=== PATIENT | female | born 1975 | race African-American/Black ===

== ENCOUNTER 2016-12-17 07:41 | Emergency (ER) | payer OTHER ==
[2016-12-17 07:53] VITALS: BMI 37.2
--- NOTE | 2016-12-17 09:02 | PDOC ---
History of Present Illness - General Chief Complaint: Edema Stated Complaint: SWOLLEN FEET Time Seen by Provider: 12/17/16 08:07 History Source: Patient, Unavil. due to pt. cond. Exam Limitations: No Limitations - History of Present Illness Initial Comments: 41 yo AA F with h/o HTN and uncontrolled IDDM presented to the ED with foot swelling and pain. The symptom started 5 days ago, the pain originated in her anterior ankles radiates to both the dorsal and ventral sides of foot, 9/10, feels like electric shock, no alleviating or aggravating factors, associated with numbness and skin peeling. 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 She Denies fever, chills, sob, chest pain, n/v, tingling, and focal weakness. Past History - Past Medical History Allergies/Adverse Reactions: Allergies Allergy/AdvReac Type Severity Reaction Status Date / Time No Known Allergies Allergy Verified 12/17/16 07:52 Home Medications: Ambulatory Orders Insulin Lispro [Humalog] 10 unit SQ PRN PRN 04/24/15 Insulin Glargine,Hum.rec.anlog [Lantus (10mL VIAL) -] 15 units SQ HS 12/17/16 Lisinopril [Prinivil] 20 mg PO DAILY 12/17/16 Diabetes: Yes HTN: Yes Suicide Attempt (Hx): No - Immunization History Immunization Up to Date: Yes - Psycho/Social/Smoking Cessation Hx Anxiety: No Suicidal Ideation: No Smoking History: Never smoked Have you smoked in the past 12 months: No Hx Alcohol Use: Yes (OCCASIONALLY) Drug/Substance Use Hx: No Substance Use Type: None Hx Substance Use Treatment: No Review of Systems - Review of Systems Constitutional: No: Chills, Fever HEENTM: No: Throat Pain, Throat Swelling Respiratory: No: Cough, Shortness of Breath Cardiac (ROS): No: Chest Pain ABD/GI: No: Diarrhea, Vomiting : No: Dysuria Integumentary: Yes: Other (left heel ulcer) *Physical Exam - Vital Signs Last Vital Signs Temp Pulse Resp BP Pulse Ox 98.6 F 97 H 18 155/90 100 12/17/16 07:50 12/17/16 07:50 12/17/16 07:50 12/17/16 07:50 12/17/16 07:50 - Physical Exam General Appearance: No: Apparent Distress HEENT: negative: Tonsillar Exudate, Tonsillar Erythema Neck: positive: Trachea midline, Supple Respiratory/Chest: positive: Lungs Clear, Normal Breath Sounds Cardiovascular: positive: Regular Rhythm, Regular Rate, S1, S2. negative: Murmur Gastrointestinal/Abdominal: positive: Normal Bowel Sounds, Soft. negative: Tenderness Extremity: positive: Tender, Swelling, Other (L heel ulcer). negative: Calf Tenderness Integumentary: positive: Normal Color, Warm ED Treatment Course - LABORATORY CBC & Chemistry Diagram: 12/17/16 10:25 12/17/16 10:25 Medical Decision Making - Medical Decision Making 12/17/16 09:32 41 yo F with uncontrolled IDDM c/o bilateral feet swelling and pain. Likely to be neuropathic pain. Also found to have grade 1 (Smith scale) diabetic foot ulcer. Will obtain lab work including a1c and refer her to [facility]. 12/17/16 12:02 Blood glc 26, will give D50 and lunch and recheck glc. *DC/Admit/Observation/Transfer Diagnosis at time of Disposition: Diabetic foot ulcer Qualifiers: Diabetic foot ulcer location: heel Diabetes mellitus type: type 2 Laterality: left Non-pressure ulcer stage: limited to breakdown of skin Qualified Code(s): E11.621 - Type 2 diabetes mellitus with foot ulcer - Discharge Dispostion Disposition: HOME Condition at time of disposition: Improved - Referrals Referrals: Angel Lopez MD [Primary Care Provider] - Logan Correa MD [Staff Physician] - - Patient Instructions Printed Discharge Instructions: Complications of Type 2 Diabetes, DI for Diabetes Type 2, DI for Diabetic Foot Ulcer Additional Instructions: You were seen in the Emergency Room at [facility] because of diabetic neuropathy and diabetic foot ulcer. Your blood sugar was also low at 26. We treated you with D50 fluid and gave you lunch to bring your sugar back up. You must come in tomorrow at 2:30 to [facility] on 5th floor to have your ulcer taken care. You also need to make appointment to see the medical accounts receivable specialist (Dr. Logan Correa) and also follow up with your primary doctor (Dr. Lopez) as soon as possible.
--- NOTE | 2016-12-17 09:19 | PDOC ---
Attending Attestation - Resident Resident Name: Ishmael Capone - ED Attending Attestation I have performed the following: I have examined & evaluated the patient, The case was reviewed & discussed with the resident, I agree w/resident's findings & plan, Exceptions are as noted - HPI HPI: 41 yo F history DM (poorly controlled), HTN presents with foot swelling and pain. Pain is to both feet, but she notes that she has an ulcer to the L foot. No fever. 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 Denies calf pain, redness. She has numbness to both feet, sensation of burning to both. - Physicial Exam PE: GENERAL: Awake, alert, and fully oriented, in no acute distress HEAD: No signs of trauma EYES: PERRLA, EOMI, sclera anicteric, conjunctiva clear ENT: Auricles normal inspection, hearing grossly normal, nares patent, oropharynx clear without exudates. Moist mucosa NECK: Normal ROM, supple, no lymphadenopathy, JVD, or masses LUNGS: Breath sounds equal, clear to auscultation bilaterally. No wheezes, and no crackles HEART: Regular rate and rhythm, normal S1 and S2, no murmurs, rubs or gallops ABDOMEN: Soft, nontender, normoactive bowel sounds. No guarding, no rebound. No masses EXTREMITIES: L foot with small ulcer, no surrounding erythema, induration. Minimal serous drainage. Trace edema to B/L ankles. No calf tenderness. NEUROLOGICAL: Cranial nerves II through XII grossly intact. Normal speech. Motor grossly intact. Dec sensation to soles of feet B/L. SKIN: Warm, Dry, normal turgor, no rashes or lesions noted. - Medical Decision Making 41 yo F with DM and HTN. She appears to have poor insight into controlling her diabetes, as she already has neuropathy to both feet, and now with an ulcer. HbA1C elevated. She was initially hypoglycemic (took insulin and did not eat), improved with PO intake. She has not been evaluated by her certifed refrigeration operator for this. Will refer her to endocrinology as an outpatient, as she needs more diabetes education. Also made an appointment for her with the wound care clinic here at [place].
[2016-12-17 10:38] LABS: BASOPHIL 0.8 % (0-2.0); EOSINOPHIL 0.9 % (0-4.5); MCH 20.4 pg (25.7-33.7); MCHC 31.1 g/dl (32.0-36.0); MEAN CELL VOLUME 65.7 fl (80-96); MEAN PLT VOLUME 8.6 fl (7.5-11.1); NEUTROPHILS 67.2 % (42.8-82.8); PLATELET COUNT 417 K/MM3 (134-434); RDW 18.6 % (11.6-15.6); WHITE BLOOD COUNT 11.6 K/mm3 (4.0-10.0)
[2016-12-17 11:26] LABS: ALBUMIN 3.2 g/dl (3.4-5.0); ALK PHOS 171 U/L (45-117); ANION GAP 9 (8-16); BILIRUBIN,TOTAL 0.2 mg/dL (0.2-1.0); CALCIUM 8.6 mg/dL (8.5-10.1); CO2 26 mmol/L (21-32); COCKROFT - GAULT 160.6415; CREATININE 0.7 mg/dL (0.55-1.02); SGPT/ALT 27 U/L (12-78); TOT PROT 7.6 g/dl (6.4-8.2)
[2016-12-17 11:31] LABS: GLUCOSE,RANDOM 28 mg/dL (74-106); SGOT/AST 31 U/L (15-37)
[2016-12-17] MEDS ORDERED: DEXTROSE 50%-WATER 50 ML DISP.SYRIN ONE (11:32)
[2016-12-17] MEDS ORDERED: DEXTROSE 50%-WATER - 25 GM/50 ML VIAL IVPUSH ONE (11:32)
[2016-12-17 11:45] VITALS: TEMP 98.7
[2016-12-17 13:34] VITALS: BP 128/81; PULSE 95
== END 2016-12-17 13:38 | disposition home or self-care (01) ==
LOC: JER 07:41
PROC: 3E033GC Introduction of Other Therapeutic Substance into Peripheral Vein, Percutaneous Approach (ICD-10-PCS; principal; 2016-12-17)
DX: E11.621 Type 2 diabetes mellitus with foot ulcer (principal); I10 Essential (primary) hypertension; Z79.4 Long term (current) use of insulin
CPT/HCPCS: 36415; 80053; 83036; 83880; 85025; 96374; 99284-25

== ENCOUNTER 2017-03-18 05:22 | Inpatient (IN) | payer OTHER ==
--- NOTE | 2017-03-18 05:29 | PDOC ---
History of Present Illness - General Chief Complaint: Nausea/Vomiting Stated Complaint: VOMITING Time Seen by Provider: 03/18/17 05:29 History Source: Patient, Significant Other Exam Limitations: Clinical Condition - History of Present Illness Initial Comments: 03/18/17 05:58 42 year old female with PMH of poorly controlled diabetes (A1C 11.6 11/2016 with an admission in 2013 for DKA) and HTN presenting with N/V/D since yesterday later afternoon. She denies strange food ingestion or any recent sick contacts. She started feeling nauseous early yesterday afternoon which progressed to worsening N/V/D throughout the day and night. She describes the vomit as bilious but non-bloody and the diarrhea as non-bloody. Difficult to obtain a full history because patient was actively vomiting during interview. No fevers, chills, chest pain, or other sick symptoms. 03/18/17 06:40 Past History - Past Medical History Allergies/Adverse Reactions: Allergies Allergy/AdvReac Type Severity Reaction Status Date / Time No Known Allergies Allergy Verified 03/18/17 05:29 Home Medications: Ambulatory Orders Insulin Lispro [Humalog] 10 unit SQ PRN PRN 04/24/15 Insulin Glargine,Hum.rec.anlog [Lantus (10mL VIAL) -] 15 units SQ HS 12/17/16 Lisinopril [Prinivil] 20 mg PO DAILY 12/17/16 Lyrica 1 tab PO DAILY 03/10/17 Diabetes: Yes HTN: Yes Suicide Attempt (Hx): No - Immunization History Immunization Up to Date: Yes - Psycho/Social/Smoking Cessation Hx Anxiety: No Suicidal Ideation: No Smoking History: Never smoked Have you smoked in the past 12 months: No Hx Alcohol Use: Yes (OCCASIONALLY) Drug/Substance Use Hx: No Substance Use Type: None Hx Substance Use Treatment: No Review of Systems - Review of Systems Able to Perform ROS?: No (Actively vomiting) *Physical Exam - Physical Exam Comments: 03/18/17 06:47 Physical exam limited to to discomfort and constant movement of the patient. General Appearance: Yes: Nourished, Appropriately Dressed, Apparent Distress, Severe Distress, Obese HEENT: positive: EOMI, JOHNNY Respiratory/Chest: positive: Lungs Clear, Normal Breath Sounds. negative: Respiratory Distress, Accessory Muscle Use, Labored Respiration Cardiovascular: positive: Regular Rhythm, S1, S2, Tachycardia. negative: Regular Rate, Murmur, Bradycardia Gastrointestinal/Abdominal: positive: Flat, Soft. negative: Normal Bowel Sounds , Tender, Organomegaly Integumentary: positive: Dry, Warm Neurologic: positive: Alert Medical Decision Making - Medical Decision Making 03/18/17 06:57 42 year old poorly controlled diabetic presenting with nausea, vomiting, and diarrhea for the past day. FS on presentation was 331. Hemoglobin A1C on 12/16 was 11. CBC showing leukocytosis and CMP hemolyzed. UA and U preg pending. Afebrile with pressures slightly soft in 90s. 1 L NS Zofran then Reglan given. This is most likely diabetic gastroparesis vs. DKA vs. hyperglycemic gastroenteritis vs. gastroenteritis NOS. Patient signed out to Dr. Rosa Bryant at 7:05 AM *DC/Admit/Observation/Transfer Diagnosis at time of Disposition: Diabetic gastroparesis
--- NOTE | 2017-03-18 05:31 | PDOC ---
Attending Attestation - Resident Resident Name: Tom Neely - ED Attending Attestation I have performed the following: I have examined & evaluated the patient, The case was reviewed & discussed with the resident, I agree w/resident's findings & plan, Exceptions are as noted - HPI HPI: 42 yo F history HTN, DM (she states she is compliant with medication, however, chart review shows prior elevated A1C) presents with N/V x2 days. No known ingestions or sick contacts. No fever/chills. She states that she has been unable to keep anything down. Limited history, patient intermittently vomiting throughout. - Physicial Exam PE: GENERAL: Awake, alert, intermittently vomiting. HEAD: No signs of trauma EYES: PERRLA, EOMI, sclera anicteric, conjunctiva clear ENT: Auricles normal inspection, hearing grossly normal, nares patent, oropharynx clear without exudates. Dry mucosa NECK: Normal ROM, supple, no lymphadenopathy, JVD, or masses LUNGS: Breath sounds equal, clear to auscultation bilaterally. No wheezes, and no crackles HEART: Regular rate and rhythm, normal S1 and S2, no murmurs, rubs or gallops ABDOMEN: Soft, nontender, +hypoactive bowel sounds. No guarding, no rebound. No masses EXTREMITIES: Normal range of motion, no edema. No clubbing or cyanosis. No cords, erythema, or tenderness NEUROLOGICAL: Moving all extremities. Cranial nerves grossly intact. Limited by patient clinical condition- actively vomiting. SKIN: Warm, Dry, normal turgor, no rashes or lesions noted. - Medical Decision Making 42 yo F history HTN, DM presents with persistent N/V. Presentation raises concern for either gastroparesis or DKA. Awaiting labs. Patient endorsed to day team- f/u labs, reassess. Will likely require admission, as she has already received zofran and reglan, still intermittently vomiting.
[2017-03-18] MEDS ORDERED: SODIUM CHLORIDE 0.9% 1000 ML INFUS.BAG IV ONE (05:39)
[2017-03-18] MEDS ORDERED: ONDANSETRON 4 MG/2 ML VIAL IVPUSH ONE ×2 (05:39→07:54)
[2017-03-18] MEDS ORDERED: ONDANSETRON 4 MG/2 ML VIAL ONE ×3 (05:53→14:05)
[2017-03-18 06:12] LABS: BASOPHIL 0.6 % (0-2.0); MCH 20.5 pg (25.7-33.7); MCHC 31.3 g/dl (32.0-36.0); MEAN CELL VOLUME 65.5 fl (80-96); MEAN PLT VOLUME 8.4 fl (7.5-11.1); NEUTROPHILS 89.2 % (42.8-82.8); PLATELET COUNT 477 K/MM3 (134-434); RDW 17.8 % (11.6-15.6); WHITE BLOOD COUNT 12.5 K/mm3 (4.0-10.0)
[2017-03-18] MEDS ORDERED: METOCLOPRAMIDE HCL INJECTION 10 MG/2 ML VIAL IVPUSH ONE (06:36)
[2017-03-18] MEDS ORDERED: METOCLOPRAMIDE HCL INJECTION 10 MG/2 ML VIAL ONE (06:57)
[2017-03-18 07:01] LABS: URINE APPEARANCE CLEAR; URINE BILIRUBIN NEGATIVE (NEGATIVE); URINE BLOOD NEGATIVE (NEGATIVE); URINE COLOR COLORLESS; URINE GLUCOSE (UA) 3+ (NEGATIVE); URINE KETONE 1+ (NEGATIVE); URINE LEUK ESTERASE NEGATIVE (NEGATIVE); URINE NITRITE NEGATIVE (NEGATIVE); URINE PROTEIN NEGATIVE (NEGATIVE); URINE UROBILINOGEN NEGATIVE mg/dL (0.2-1.0)
--- NOTE | 2017-03-18 07:35 | PDOC ---
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 setter at bedside, minimally conversive but responds appropriately by nodding head) Vascular Pulses: Femoral (R): 4+, Femoral (L): 4+, Carotid (R): 4+, Carotid (L) : 4+, Dorsalis-Pedis (R): 4+, Doralis-Pedis (L): 4+ ED Treatment Course - LABORATORY CBC & Chemistry Diagram: 03/18/17 06:05 03/18/17 06:05 - ADDITIONAL ORDERS Additional order review: Laboratory Results 03/18/17 03/18/17 03/18/17 06:05 06:05 06:05 Sodium Cancelled Potassium Cancelled Chloride Cancelled Carbon Dioxide Cancelled Anion Gap Cancelled BUN Cancelled Creatinine Cancelled Creat Clearance w eGFR Cancelled POC Glucometer Random Glucose Cancelled Lactic Acid 2.8 H* Calcium Cancelled Total Bilirubin Cancelled AST Cancelled ALT Cancelled Alkaline Phosphatase Cancelled Total Protein Cancelled Albumin Cancelled Urine Color Colorless Urine Appearance Clear Urine pH 8.0 D Urine Protein Negative Urine Glucose (UA) 3+ H D Urine Ketones 1+ H Urine Blood Negative Urine Nitrite Negative Urine Bilirubin Negative Urine Urobilinogen Negative Ur Leukocyte Esterase Negative Urine HCG, Qual Negative 03/18/17 05:37 Sodium Potassium Chloride Carbon Dioxide Anion Gap BUN Creatinine Creat Clearance w eGFR POC Glucometer [phone] Random Glucose Lactic Acid Calcium Total Bilirubin AST ALT Alkaline Phosphatase Total Protein Albumin Urine Color Urine Appearance Urine pH Urine Protein Urine Glucose (UA) Urine Ketones Urine Blood Urine Nitrite Urine Bilirubin Urine Urobilinogen Ur Leukocyte Esterase Urine HCG, Qual 03/18/17 03/18/17 06:05 05:37 RBC 5.40 H MCV 65.5 L MCHC 31.3 L RDW 17.8 H MPV 8.4 Neutrophils % 89.2 H D Lymphocytes % 8.0 D Monocytes % 2.2 L Eosinophils % 0.0 D Basophils % 0.6 POC Glucometer [phone] - Medications Given in the ED: ED Medications Discontinued Medications Generic Name Dose Route Start Last Admin Trade Name Consuelo PRN Reason Stop Dose Admin Metoclopramide HCl 10 mg 03/18/17 06:36 03/18/17 06:50 Reglan Injection - IVPUSH 03/18/17 06:37 10 mg ONCE ONE Administration Ondansetron HCl 4 mg 03/18/17 05:39 03/18/17 06:00 Zofran Injection IVPUSH 03/18/17 05:40 4 mg ONCE ONE Administration Sodium Chloride 1,000 ml 03/18/17 05:39 03/18/17 06:00 Normal Saline - IV 03/18/17 05:40 1,000 ml ONCE ONE Administration Medical Decision Making - Medical Decision Making 03/18/17 07:[address] Boston Neely at 7am. 42 yo F with poorly-controlled IDDM presented obtunded last night with c/o n/v/d since yesterday afternoon, found to be hyperglycemic >300 despite reportedly taking her normal insulin at home last night. Her AMS improved overnight but Pt still with intractable vomiting despite Zofran, Reglan, IVF bolus. WBC >12k, UA with 1+ ketones, CMP hemolyzed and now attempting to re-collect blood sample but the patient has been a difficult stick. Will await anion gap result, considering serum acetone. IV Reglan given just before signout and Pt continues to 30 minutes after; will consider erythromycin. *DC/Admit/Observation/Transfer Diagnosis at time of Disposition: Gastroparesis diabeticorum - Referrals Referrals: Angel Lopez MD [Primary Care Provider] - - Patient Instructions - Post Discharge Activity
[2017-03-18] MEDS ORDERED: HEMOQUE TEST 1 EACH EACH ONE ×3 (07:36→14:04)
[2017-03-18 07:42] LABS: ANISOCYTOSIS 2+; HYPOCHROMIA 2+; MICROCYTOSIS 2+
[2017-03-18] MEDS ORDERED: BACITRACIN 0.9 GM PACKET ONE (07:55)
--- NOTE | 2017-03-18 07:59 | PDOC ---
*Physical Exam - Vital Signs Last Vital Signs Temp Pulse Resp BP Pulse Ox 98.7 F 107 H 20 97/64 100 03/18/17 05:29 03/18/17 05:29 03/18/17 05:29 03/18/17 05:29 03/18/17 05:29 - Physical Exam General Appearance: Yes: Moderate Distress, Obese, Other (laying on left side with eyes mostly closed, coremaker bench at bedside, emesis bag with dark brown liquid at bedside) Gastrointestinal/Abdominal: positive: Tender (mild diffuse tender), Soft, Other (dry heaving and vomiting dark brown liquid, hypoactive bowel sounds) Musculoskeletal: positive: Normal Inspection Neurologic: positive: Fully Oriented, Alert, Normal Response, Responsive ED Treatment Course - LABORATORY CBC & Chemistry Diagram: 03/18/17 06:05 03/18/17 16:45 - ADDITIONAL ORDERS Additional order review: Laboratory Results 03/18/17 03/18/17 03/18/17 06:05 06:05 06:05 Sodium Cancelled Potassium Cancelled Chloride Cancelled Carbon Dioxide Cancelled Anion Gap Cancelled BUN Cancelled Creatinine Cancelled Creat Clearance w eGFR Cancelled POC Glucometer Random Glucose Cancelled Lactic Acid 2.8 H* Calcium Cancelled Total Bilirubin Cancelled AST Cancelled ALT Cancelled Alkaline Phosphatase Cancelled Total Protein Cancelled Albumin Cancelled Urine Color Colorless Urine Appearance Clear Urine pH 8.0 D Urine Protein Negative Urine Glucose (UA) 3+ H D Urine Ketones 1+ H Urine Blood Negative Urine Nitrite Negative Urine Bilirubin Negative Urine Urobilinogen Negative Ur Leukocyte Esterase Negative Urine HCG, Qual Negative 03/18/17 05:37 Sodium Potassium Chloride Carbon Dioxide Anion Gap BUN Creatinine Creat Clearance w eGFR POC Glucometer [phone] Random Glucose Lactic Acid Calcium Total Bilirubin AST ALT Alkaline Phosphatase Total Protein Albumin Urine Color Urine Appearance Urine pH Urine Protein Urine Glucose (UA) Urine Ketones Urine Blood Urine Nitrite Urine Bilirubin Urine Urobilinogen Ur Leukocyte Esterase Urine HCG, Qual 03/18/17 03/18/17 06:05 05:37 RBC 5.40 H MCV 65.5 L MCHC 31.3 L RDW 17.8 H MPV 8.4 Neutrophils % 89.2 H D Lymphocytes % 8.0 D Monocytes % 2.2 L Eosinophils % 0.0 D Basophils % 0.6 POC Glucometer [phone] - Medications Given in the ED: ED Medications Discontinued Medications Generic Name Dose Route Start Last Admin Trade Name Consuelo PRN Reason Stop Dose Admin Metoclopramide HCl 10 mg 03/18/17 06:36 03/18/17 06:50 Reglan Injection - IVPUSH 03/18/17 06:37 10 mg ONCE ONE Administration Ondansetron HCl 4 mg 03/18/17 05:39 03/18/17 06:00 Zofran Injection IVPUSH 03/18/17 05:40 4 mg ONCE ONE Administration Sodium Chloride 1,000 ml 03/18/17 05:39 03/18/17 06:00 Normal Saline - IV 03/18/17 05:40 1,000 ml ONCE ONE Administration Medical Decision Making - Medical Decision Making 03/18/17 07:[address] Boston Neely at 7am. 42 yo F with poorly-controlled IDDM presented obtunded last night with c/o n/v/d since yesterday afternoon, found to be hyperglycemic >300 despite reportedly taking her normal insulin at home last night. Her AMS improved overnight but Pt still with intractable vomiting despite Zofran, Reglan, IVF bolus. WBC >12k, UA with 1+ ketones, CMP hemolyzed and now attempting to re-collect blood sample but the patient has been a difficult stick. Will await anion gap result, considering serum acetone. IV Reglan given just before signout and Pt continues to 30 minutes after; EKG shows QTc 464 and thus will order another 4mg IV Zofran. If vomiting continues, will consider erythromycin 3 mg/kg IV q8h prn n/v. 03/18/17 08:11 BG measured to be 425, CMP pending but no EKG changes suggesting hypokalemia, so 6U regular insulin IV push given. 03/18/17 10:13 Vomiting subsided for about 30 minutes but returned; thus ordering erythromycin 3 mg/kg IV given over 45 minutes. Repeating CMP and lactate at 10:30 to re- evaluate. May consider RUQ US if alkaline phosphatase is still elevated or if AST or ALT are elevated at that time, given that the patient does fit the profile for cholecystitis. 03/18/17 11:24 Patient still vomiting despite erythromycin running, now with blood-tinged emesis which is still dark brown fluid. Decision to admit to Dr. Lopez, who has cared for her in the past and graciously accepts admission to med/surg obs. GI consult ordered with Dr. Hartley. Patient's repeat BG is >400 and thus she is given SQ insulin. Subsequently the repeat CMP returns with anion gap of 17, so the patient is started on insulin drip. ICU Dr. Forde is called and agrees with admission to ICU given insulin drip and DKA diagnosis. Dr. Lopez is notified and Pt will be seen by Endocrine as well. *DC/Admit/Observation/Transfer Diagnosis at time of Disposition: Intractable vomiting with nausea Qualifiers: Vomiting type: unspecified Qualified Code(s): R11.2 - Nausea with vomiting, unspecified DKA (diabetic ketoacidoses) Qualifiers: Diabetes mellitus type: type 2 Diabetes mellitus complication detail: without coma Qualified Code(s): E13.10 - Other specified diabetes mellitus with ketoacidosis without coma - Discharge Dispostion Admit: Yes - Referrals - Patient Instructions - Post Discharge Activity - Attestations Physician Attestion: 03/18/17 08:00 I, Dr. Rosa Bryant, attest that this document has been prepared under my direction and personally reviewed by me in its entirety. I further attest, that it accurately reflects all work, treatment, procedures and medical decision -making performed by me.
[2017-03-18] MEDS ORDERED: SODIUM CHLORIDE 1,000 ML IV ONE (08:03)
[2017-03-18 08:10] LABS: ALBUMIN 3.5 g/dl (3.4-5.0); ANION GAP 16 (8-16); BILIRUBIN,TOTAL 0.4 mg/dL (0.2-1.0); CALCIUM 9.2 mg/dL (8.5-10.1); CO2 19 mmol/L (21-32); CREATININE 0.8 mg/dL (0.55-1.02); SGOT/AST 31 U/L (15-37); SGPT/ALT 24 U/L (12-78)
[2017-03-18] MEDS ORDERED: INSULIN REGULAR HUMAN 100 UNITS/ML *VIAL ONE ×3 (08:10→11:48)
[2017-03-18] MEDS ORDERED: INSULIN REGULAR HUMAN 100 UNITS/ML *VIAL IVPUSH ONE (08:10)
[2017-03-18 08:11] LABS: ALK PHOS 224 U/L (45-117)
[2017-03-18 08:58] LABS: GLUCOSE,RANDOM 382 mg/dL (74-106)
[2017-03-18] MEDS ORDERED: ERYTHROMYCIN *INJECTION* 500 MG VIAL IVPB ONE (10:06)
[2017-03-18 11:27] LABS: ALBUMIN 3.5 g/dl (3.4-5.0); ALK PHOS 225 U/L (45-117); ANION GAP 17 (8-16); BILIRUBIN,TOTAL 0.4 mg/dL (0.2-1.0); CALCIUM 8.9 mg/dL (8.5-10.1); CO2 17 mmol/L (21-32); CREATININE 0.8 mg/dL (0.55-1.02); SGPT/ALT 27 U/L (12-78); TOT PROT 8.3 g/dl (6.4-8.2)
[2017-03-18 11:35] LABS: SGOT/AST 54 U/L (15-37)
[2017-03-18 11:36] LABS: GLUCOSE,RANDOM 363 mg/dL (74-106)
[2017-03-18] MEDS ORDERED: INSULIN REGULAR HUMAN 100 UNITS/ML *VIAL SQ ONE (11:42)
[2017-03-18] MEDS ORDERED: INSULIN REGULAR 100 UNITS in SODIUM CHLORIDE 99 ML IVPB SCH ×2 (12:00→17:30)
[2017-03-18] MEDS ORDERED: PANTOPRAZOLE SODIUM 80 MG in SODIUM CHLORIDE 100 ML IVPB ONE (12:26)
[2017-03-18] MEDS ORDERED: PANTOPRAZOLE SODIUM 100 ML IVPB ONE ×2 (12:26→19:23)
--- NOTE | 2017-03-18 12:48 | PDOC ---
*Physical Exam - Vital Signs Last Vital Signs Temp Pulse Resp BP Pulse Ox 98.9 F 122 H 16 193/99 100 03/18/17 12:05 03/18/17 12:05 03/18/17 12:05 03/18/17 12:05 03/18/17 12:05 ED Treatment Course - LABORATORY CBC & Chemistry Diagram: 03/18/17 06:05 03/18/17 10:30 - ADDITIONAL ORDERS Additional order review: Laboratory Results 03/18/17 03/18/17 03/18/17 10:30 10:30 08:02 Sodium 136 Potassium 4.9 Chloride 102 Carbon Dioxide 17 L Anion Gap 17 H BUN 9 Creatinine 0.8 Creat Clearance w eGFR > 60 POC Glucometer > 400 Random Glucose 363 H* Hemoglobin A1c % Lactic Acid 2.6 H* Calcium 8.9 Total Bilirubin 0.4 AST 54 H D ALT 27 Alkaline Phosphatase 225 H Total Protein 8.3 H Albumin 3.5 Urine Color Urine Appearance Urine pH Ur Specific [place] Urine Protein Urine Glucose (UA) Urine Ketones Urine Blood Urine Nitrite Urine Bilirubin Urine Urobilinogen Ur Leukocyte Esterase Urine HCG, Qual 03/18/17 03/18/17 03/18/17 07:40 07:40 06:05 Sodium 135 L Potassium 4.5 Chloride 100 Carbon Dioxide 19 L D Anion Gap 16 BUN 10 Creatinine 0.8 Creat Clearance w eGFR > 60 POC Glucometer Random Glucose 382 H* D Hemoglobin A1c % 11.2 H 11.2 H D Lactic Acid Calcium 9.2 Total Bilirubin 0.4 D AST 31 ALT 24 Alkaline Phosphatase 224 H D Total Protein 8.0 Albumin 3.5 Urine Color Urine Appearance Urine pH Ur Specific [place] Urine Protein Urine Glucose (UA) Urine Ketones Urine Blood Urine Nitrite Urine Bilirubin Urine Urobilinogen Ur Leukocyte Esterase Urine HCG, Qual 03/18/17 03/18/17 03/18/17 06:05 06:05 06:05 Sodium Cancelled Potassium Cancelled Chloride Cancelled Carbon Dioxide Cancelled Anion Gap Cancelled BUN Cancelled Creatinine Cancelled Creat Clearance w eGFR Cancelled POC Glucometer Random Glucose Cancelled Hemoglobin A1c % Lactic Acid 2.8 H* Calcium Cancelled Total Bilirubin Cancelled AST Cancelled ALT Cancelled Alkaline Phosphatase Cancelled Total Protein Cancelled Albumin Cancelled Urine Color Colorless Urine Appearance Clear Urine pH 8.0 D Ur Specific [place] 1.015 Urine Protein Negative Urine Glucose (UA) 3+ H D Urine Ketones 1+ H Urine Blood Negative Urine Nitrite Negative Urine Bilirubin Negative Urine Urobilinogen Negative Ur Leukocyte Esterase Negative Urine HCG, Qual Negative 03/18/17 05:37 Sodium Potassium Chloride Carbon Dioxide Anion Gap BUN Creatinine Creat Clearance w eGFR POC Glucometer [phone] Random Glucose Hemoglobin A1c % Lactic Acid Calcium Total Bilirubin AST ALT Alkaline Phosphatase Total Protein Albumin Urine Color Urine Appearance Urine pH Ur Specific [place] Urine Protein Urine Glucose (UA) Urine Ketones Urine Blood Urine Nitrite Urine Bilirubin Urine Urobilinogen Ur Leukocyte Esterase Urine HCG, Qual 03/18/17 03/18/17 03/18/17 08:02 06:05 05:37 RBC 5.40 H MCV 65.5 L MCHC 31.3 L RDW 17.8 H MPV 8.4 Neutrophils % 89.2 H D Lymphocytes % 8.0 D Monocytes % 2.2 L Eosinophils % 0.0 D Basophils % 0.6 POC Glucometer > [phone] - Medications Given in the ED: ED Medications Discontinued Medications Generic Name Dose Route Start Last Admin Trade Name Warrenq PRN Reason Stop Dose Admin Erythromycin Lactobionate 250 mg 03/18/17 10:06 03/18/17 11:05 Erythromycin Injection - IVPB 03/18/17 10:07 250 mg ONCE ONE Administration Sodium Chloride 1,000 mls @ 1,000 mls/hr 03/18/17 08:03 03/18/17 08:31 Normal Saline - IV 03/18/17 09:02 1,000 mls/hr ONCE ONE Administration Insulin Human Regular 6 units 03/18/17 08:10 03/18/17 08:30 Novolin R Vial *For Ivpush Or Iv Drip Only* IVPUSH 03/18/17 08:11 6 units ONCE ONE Administration Insulin Human Regular 6 units 03/18/17 11:42 03/18/17 11:43 Novolin R Vial *For Ivpush Or Iv Drip Only* SQ 03/18/17 11:43 6 units ONCE ONE Administration Metoclopramide HCl 10 mg 03/18/17 06:36 03/18/17 06:50 Reglan Injection - IVPUSH 03/18/17 06:37 10 mg ONCE ONE Administration Ondansetron HCl 4 mg 03/18/17 05:39 03/18/17 06:00 Zofran Injection IVPUSH 03/18/17 05:40 4 mg ONCE ONE Administration Ondansetron HCl 4 mg 03/18/17 07:54 03/18/17 08:03 Zofran Injection IVPUSH 03/18/17 07:55 4 mg ONCE ONE Administration Sodium Chloride 1,000 ml 03/18/17 05:39 03/18/17 06:00 Normal Saline - IV 03/18/17 05:40 1,000 ml ONCE ONE Administration Medical Decision Making - Critical Care Time Total Critical Care Time (minutes): 30 Critical Care Statement: The care of this patient involved high complexity decision making to prevent further life threatening deterioration of the patient 's condition and/or to evalute & treat vital organ system(s) failure or risk of failure. - Medical Decision Making 03/18/17 12:42 Received signout to proceed with admission of this IDDM patient with h/o gastroparesis and intractable vomiting, presented with same, ? DKA. Labs initially with AG 16, did not improve despite IV insulin and aggressive IV fluid rehydration and anti-emetics. AG actually increased to 17, glucose in the 300-400 range. started in insulin drip, continued iv fluids. ICU admission. emesis became dark/coffee-ground during ED stay, ? zenia-marin tear. abdomen remained benign, tachycardia but BP elevated. started on PPI, proceed with ICU admission, GI involvement. *DC/Admit/Observation/Transfer Diagnosis at time of Disposition: Intractable vomiting with nausea Qualifiers: Vomiting type: unspecified Qualified Code(s): R11.2 - Nausea with vomiting, unspecified DKA (diabetic ketoacidoses) Qualifiers: Diabetes mellitus type: type 2 Diabetes mellitus complication detail: without coma Qualified Code(s): E13.10 - Other specified diabetes mellitus with ketoacidosis without coma
[2017-03-18 13:15] VITALS: BMI 35.4
[2017-03-18] MEDS ORDERED: ENALAPRILAT DIHYDRATE 1.25 MG/1 ML VIAL IVPB ONE (13:19)
[2017-03-18] MEDS ORDERED: ENALAPRILAT DIHYDRATE 2.5 MG/2 ML VIAL IVPB ONE (13:20)
[2017-03-18] MEDS ORDERED: ONDANSETRON *ODT* 4 MG TABLET SL ONE (13:50)
[2017-03-18 13:57] LABS: ANION GAP 19 (8-16); CALCIUM 8.9 mg/dL (8.5-10.1); CO2 15 mmol/L (21-32); CREATININE 0.9 mg/dL (0.55-1.02); GLUCOSE,RANDOM 282 mg/dL (74-106)
--- NOTE | 2017-03-18 14:19 | CONSULT ---
Consultation: Consult Type: Intensive Care REQUESTING PROVIDER: Dr. Lopez CONSULT REQUEST: We have been asked to medically evaluate this patient for Intensive Care HISTORY OF PRESENT ILLNESS: 42 yo AA F with h/o HTN and uncontrolled IDDM admitted to the ICU for DKA. Patient stated that last night she was resting at home and around 10pm she started having intractable nausea and vomiting suddenly. Per patient, it's unrelated to food and the vomitus was gastric content at first then clear liquid , non-bloody non-bilious. She's taking 20 units of lantus at bedtime in addition to humolog on sliding scale. She denies missing insulin dose or having any active illness. Patient follows Dr. Yan for swelling in R foot and she's supposed to obtain a R lower leg U/S on next week. She vaguely recalls being on abx for the swelling but no longer on it. Denies fever, chills, chest pain, shortness of breath, cough, urinary or bowel symptoms. Past Medical History Cardio/Vascular HTN Gastrointestinal Constipation,GERD Heme/Onc Psych Addictions,Anxiety,Bipolar,Depression,Panic, Psychosis,Schizophrenia,Other Endocrine Diabetes Mellitus Past Surgical History Past Surgical History Allergy NKDA Social History Smoking history Never smoked Have you smoked in the past 12 No months Hx Alcohol Use Yes: OCCASIONALLY Home Medication List Medication Instructions Recorded Confirmed Type Insulin Lispro [Humalog] 10 unit SQ PRN PRN 04/24/15 03/18/17 History Insulin Glargine,Hum.rec.anlog 15 units SQ HS 12/17/16 03/18/17 History [Lantus (10mL VIAL) -] Lisinopril [Prinivil] 20 mg PO DAILY 12/17/16 03/18/17 History Pregabalin [Lyrica -] 0 mg PO DAILY 03/18/17 03/18/17 History REVIEW OF SYSTEMS: CONSTITUTIONAL: loss of appetite Absent: fever, chills, diaphoresis, generalized weakness, malaise, weight change HEENT: Absent: rhinorrhea, nasal congestion, throat pain, throat swelling, difficulty swallowing, mouth swelling, ear pain, eye pain, visual changes CARDIOVASCULAR: Absent: chest pain, syncope, palpitations, irregular heart rate, lightheadedness , peripheral edema RESPIRATORY: Absent: cough, shortness of breath, dyspnea with exertion, orthopnea, wheezing, stridor, hemoptysis GASTROINTESTINAL: abdominal pain, nausea, vomiting Absent: , abdominal distension, diarrhea, constipation, melena, hematochezia GENITOURINARY: Absent: dysuria, frequency, urgency, hesitancy, hematuria, flank pain, genital pain MUSCULOSKELETAL: R foot swelling Absent: myalgia, arthralgia, joint swelling, back pain, neck pain SKIN: Absent: rash, itching, pallor HEMATOLOGIC/IMMUNOLOGIC: Absent: easy bleeding, easy bruising, lymphadenopathy, frequent infections ENDOCRINE: Absent: unexplained weight gain, unexplained weight loss, heat intolerance, cold intolerance NEUROLOGIC: Absent: headache, focal weakness or paresthesias, dizziness, unsteady gait, seizure, mental status changes, bladder or bowel incontinence PSYCHIATRIC: Absent: anxiety, depression, suicidal or homicidal ideation, hallucinations. PHYSICAL EXAMINATION Last Vital Signs Temp Pulse Resp BP Pulse Ox 98.9 F 126 H 20 159/88 100 03/18/17 12:05 03/18/17 13:26 03/18/17 13:26 03/18/17 13:26 03/18/17 13:26 GENERAL: AAO x 3, actively vomiting, in no acute cardiopulmonary distress, EYES: Pupils equal, round and reactive to light, sclera anicteric, conjunctiva clear EARS, NOSE, THROAT: oropharynx clear without exudates. Moist mucous membranes. LUNGS: CTAB HEART: Tachycardic, normal S1 and S2 without murmur, rub or gallop. ABDOMEN: Soft, nontender, not distended, normoactive bowel sounds, no guarding, no rebound, no masses. LOWER EXTREMITIES: 2+ pulses, No peripheral edema in L leg. Warm and edematous in R foot, non tender. CBCD WBC 12.5 K/mm3 (4.0-10.0) H 03/18/17 06:05 RBC 5.40 M/mm3 (3.60-5.2) H 03/18/17 06:05 Hgb 11.1 GM/dL (10.7-15.3) 03/18/17 06:05 Hct 35.4 % (32.4-45.2) 03/18/17 06:05 MCV 65.5 fl (80-96) L 03/18/17 06:05 MCHC 31.3 g/dl (32.0-36.0) L 03/18/17 06:05 RDW 17.8 % (11.6-15.6) H 03/18/17 06:05 Plt Count 477 K/MM3 (134-434) H 03/18/17 06:05 MPV 8.4 fl (7.5-11.1) 03/18/17 06:05 CMP Sodium 140 mmol/L (136-145) 03/18/17 13:12 Potassium 4.2 mmol/L (3.5-5.1) 03/18/17 13:12 Chloride 106 mmol/L (98-107) 03/18/17 13:12 Carbon Dioxide 15 mmol/L (21-32) L 03/18/17 13:12 Anion Gap 19 (8-16) H 03/18/17 13:12 BUN 10 mg/dL (7-18) 03/18/17 13:12 Creatinine 0.9 mg/dL (0.55-1.02) 03/18/17 13:12 Creat Clearance w eGFR > 60 (>60) 03/18/17 10:30 Calcium 8.9 mg/dL (8.5-10.1) 03/18/17 13:12 Total Bilirubin 0.4 mg/dL (0.2-1.0) 03/18/17 10:30 AST 54 U/L (15-37) H D 03/18/17 10:30 ALT 27 U/L (12-78) 03/18/17 10:30 Alkaline Phosphatase 225 U/L (45-117) H 03/18/17 10:30 Total Protein 8.3 g/dl (6.4-8.2) H 03/18/17 10:30 Albumin 3.5 g/dl (3.4-5.0) 03/18/17 10:30 Intake & Output 03/15/17 03/16/17 03/17/17 03/18/17 23:59 23:59 23:59 23:59 Weight 90.718 kg Urine Test Results Urine Color Colorless 03/18/17 06:05 Urine Appearance Clear 03/18/17 06:05 Urine pH 8.0 (5.0-8.0) D 03/18/17 06:05 Ur Specific [place] 1.015 (1.005-1.025) 03/18/17 06:05 Urine Protein Negative (NEGATIVE) 03/18/17 06:05 Urine Glucose (UA) 3+ (NEGATIVE) H D 03/18/17 06:05 Urine Ketones 1+ (NEGATIVE) H 03/18/17 06:05 Urine Blood Negative (NEGATIVE) 03/18/17 06:05 Urine Nitrite Negative (NEGATIVE) 03/18/17 06:05 Urine Bilirubin Negative (NEGATIVE) 03/18/17 06:05 Ur Leukocyte Esterase Negative (NEGATIVE) 03/18/17 06:05 IMAGING CXR on 03/18: no acute pathology ASSESSMENT/PLAN: 42 yo AA F with h/o HTN and uncontrolled IDDM admitted to the ICU for DKA. Endo: DKA - Gap remains open - Cont. insulin gtt till gap closes * transition to levemir 15 units HS * DM diet once gap closes - Cont. D5W+NS - K+ IV and PO as needed - Finger stick Q1H - BMP Q4H ID: Leukocytosis with left shift - Reactive vs. suspected R foot cellulitis - Received keflex for cellulitis at [facility] - DKA associated with leukocytosis in prior admission * Treated with vanco + zosyn - ID consult FEN - D5W+NS @100cc/hr - Monitor K+ and Na+ - NPO for now, DM diet once gap closes Prophylaxis - DVT: SCDs - GI: not indicated Dispo - Cont. to monitor in ICU Ishmael Capone, ICU Resident PGY-2 Pager: [phone] Visit type - Emergency Visit Emergency Visit: Yes ED Registration Date: 03/18/17 Care time: The patient presented to the Emergency Department on the above date and was hospitalized for further evaluation of their emergent condition. - New Patient This patient is new to me today: Yes Date on this admission: 03/18/17 - Critical Care Critical Care patient: Yes Total Critical Care Time (in minutes): 35 Critical Care Statement: The care of this patient involved high complexity decision making to prevent further life threatening deterioration of the patient 's condition and/or to evalute & treat vital organ system(s) failure or risk of failure.
[2017-03-18] MEDS ORDERED: DEXTROSE 5%-NORMAL SALINE 1,000 ML IV SCH ×3 (14:30→23:45)
--- NOTE | 2017-03-18 14:42 | PN ---
Teaching Attending Note Name of Resident: Ishmael Capone ATTENDING PHYSICIAN STATEMENT I saw and evaluated the patient. I reviewed the resident's note and discussed the case with the resident. I agree with the resident's findings and plan as documented. SUBJECTIVE: Patient seen and examined in the ICU. In brief. 42 F, poorly controlled diabetes (A1C 11.6 11/2016), previous admissions for DKA, HTN, and followed in wound care clinic due to RLE cellulitis (was apparently recently on ABX). Admitted via the ER due to intractable N/V/D since yesterday later afternoon. No recent travel history or sick contacts. Vomitus has been bilious with questionable coffee grounds./ No CP or SOB. Noted to have an elevated AG and started on IV Insulin. CXR : No acute pathology. Intake & Output 03/15/17 03/16/17 03/17/17 03/18/17 23:59 23:59 23:59 23:59 Weight 200 lb Last Vital Signs Temp Pulse Resp BP Pulse Ox 98.9 F 126 H 20 159/88 100 03/18/17 12:05 03/18/17 13:26 03/18/17 13:26 03/18/17 13:26 03/18/17 13:26 Active Medications Insulin Human Regular 100 (units/ Sodium Chloride) 100 mls @ 8 mls/hr IVPB TITR NILO; 8 UNITS/HR PRN Reason: Protocol Last Titration: 03/18/17 14:14 Dose: 4.5 units/hr Dextrose/Sodium Chloride (D5-Ns -) 1,000 mls @ 100 mls/hr IV ASDIR NILO GENERAL: Awake, alert, uncomfortable due to N/V HEAD: Normal with no signs of trauma. EYES: sclera anicteric, conjunctiva clear. No lid lag. EARS, NOSE, THROAT: dry mucous membranes. NECK: Normal range of motion, supple without lymphadenopathy, JVD, or masses. LUNGS: Breath sounds equal, clear to auscultation bilaterally. No wheezes, and no crackles. No accessory muscle use. HEART: Regular rate and rhythm, normal S1 and S2 without murmur, rub or gallop. ABDOMEN: Soft, mild tenderness, normoactive bowel sounds, no guarding, no rebound, no masses. No hepatomegaly or splenomegaly. MUSCULOSKELETAL: Normal range of motion at all joints. No bony deformities or tenderness. No CVA tenderness. UPPER EXTREMITIES: 2+ pulses, warm, well-perfused. No cyanosis. No clubbing. Cap refill <2 seconds. No peripheral edema. LOWER EXTREMITIES: 2+ pulses, warm, well-perfused. No calf tenderness. No peripheral edema. NEUROLOGICAL: Non-focal . PSYCHIATRIC: Cooperative. . SKIN: Warm, dry, normal turgor, no rashes or lesions noted. Laboratory Results - last 24 hr 03/18/17 03/18/17 03/18/17 05:37 06:05 06:05 WBC 12.5 H RBC 5.40 H Hgb 11.1 Hct 35.4 MCV 65.5 L MCH 20.5 L MCHC 31.3 L RDW 17.8 H Plt Count 477 H MPV 8.4 Neutrophils % 89.2 H D Lymphocytes % 8.0 D Monocytes % 2.2 L Eosinophils % 0.0 D Basophils % 0.6 Hypochromic-Microcytic 2+ Anisocytosis 2+ Microcytosis 2+ Sodium Potassium Chloride Carbon Dioxide Anion Gap BUN Creatinine Creat Clearance w eGFR POC Glucometer [phone] Random Glucose Hemoglobin A1c % Lactic Acid Calcium Total Bilirubin AST ALT Alkaline Phosphatase Total Protein Albumin Urine Color Colorless Urine Appearance Clear Urine pH 8.0 D Ur Specific [place] 1.015 Urine Protein Negative Urine Glucose (UA) 3+ H D Urine Ketones 1+ H Urine Blood Negative Urine Nitrite Negative Urine Bilirubin Negative Urine Urobilinogen Negative Ur Leukocyte Esterase Negative Urine HCG, Qual Negative 03/18/17 03/18/17 03/18/17 06:05 06:05 06:05 WBC RBC Hgb Hct MCV MCH MCHC RDW Plt Count MPV Neutrophils % Lymphocytes % Monocytes % Eosinophils % Basophils % Hypochromic-Microcytic Anisocytosis Microcytosis Sodium Cancelled Potassium Cancelled Chloride Cancelled Carbon Dioxide Cancelled Anion Gap Cancelled BUN Cancelled Creatinine Cancelled Creat Clearance w eGFR Cancelled POC Glucometer Random Glucose Cancelled Hemoglobin A1c % 11.2 H D Lactic Acid 2.8 H* Calcium Cancelled Total Bilirubin Cancelled AST Cancelled ALT Cancelled Alkaline Phosphatase Cancelled Total Protein Cancelled Albumin Cancelled Urine Color Urine Appearance Urine pH Ur Specific [place] Urine Protein Urine Glucose (UA) Urine Ketones Urine Blood Urine Nitrite Urine Bilirubin Urine Urobilinogen Ur Leukocyte Esterase Urine HCG, Qual 03/18/17 03/18/17 03/18/17 07:40 07:40 08:02 WBC RBC Hgb Hct MCV MCH MCHC RDW Plt Count MPV Neutrophils % Lymphocytes % Monocytes % Eosinophils % Basophils % Hypochromic-Microcytic Anisocytosis Microcytosis Sodium 135 L Potassium 4.5 Chloride 100 Carbon Dioxide 19 L D Anion Gap 16 BUN 10 Creatinine 0.8 Creat Clearance w eGFR > 60 POC Glucometer > 400 Random Glucose 382 H* D Hemoglobin A1c % 11.2 H Lactic Acid Calcium 9.2 Total Bilirubin 0.4 D AST 31 ALT 24 Alkaline Phosphatase 224 H D Total Protein 8.0 Albumin 3.5 Urine Color Urine Appearance Urine pH Ur Specific [place] Urine Protein Urine Glucose (UA) Urine Ketones Urine Blood Urine Nitrite Urine Bilirubin Urine Urobilinogen Ur Leukocyte Esterase Urine HCG, Qual 03/18/17 03/18/17 03/18/17 10:30 10:30 11:25 WBC RBC Hgb Hct MCV MCH MCHC RDW Plt Count MPV Neutrophils % Lymphocytes % Monocytes % Eosinophils % Basophils % Hypochromic-Microcytic Anisocytosis Microcytosis Sodium 136 Potassium 4.9 Chloride 102 Carbon Dioxide 17 L Anion Gap 17 H BUN 9 Creatinine 0.8 Creat Clearance w eGFR > 60 POC Glucometer > 400 Random Glucose 363 H* Hemoglobin A1c % Lactic Acid 2.6 H* Calcium 8.9 Total Bilirubin 0.4 AST 54 H D ALT 27 Alkaline Phosphatase 225 H Total Protein 8.3 H Albumin 3.5 Urine Color Urine Appearance Urine pH Ur Specific [place] Urine Protein Urine Glucose (UA) Urine Ketones Urine Blood Urine Nitrite Urine Bilirubin Urine Urobilinogen Ur Leukocyte Esterase Urine HCG, Qual 03/18/17 03/18/17 03/18/17 13:02 13:12 14:08 WBC RBC Hgb Hct MCV MCH MCHC RDW Plt Count MPV Neutrophils % Lymphocytes % Monocytes % Eosinophils % Basophils % Hypochromic-Microcytic Anisocytosis Microcytosis Sodium 140 Potassium 4.2 Chloride 106 Carbon Dioxide 15 L Anion Gap 19 H BUN 10 Creatinine 0.9 Creat Clearance w eGFR POC Glucometer [phone] Random Glucose 282 H D Hemoglobin A1c % Lactic Acid Calcium 8.9 Total Bilirubin AST ALT Alkaline Phosphatase Total Protein Albumin Urine Color Urine Appearance Urine pH Ur Specific [place] Urine Protein Urine Glucose (UA) Urine Ketones Urine Blood Urine Nitrite Urine Bilirubin Urine Urobilinogen Ur Leukocyte Esterase Urine HCG, Qual IMP: DKA Intractable N/V -> (?) Due to gastroparesis HTN (?) Coffee ground emesis Recent RLE cellulitis Above history PLAN: IVF Insulin drip Follow BGM Strict I&O Noted GI and Endocrine consults were called VTE prophylaxis Contact wound care for further info Would monitor off ABX for now ICU monitoring Dr Portillo Critical Care Total Critical Care Time (in minutes): 35 Critical Care Statement: The care of this patient involved high complexity decision making to prevent further life threatening deterioration of the patient 's condition and/or to evalute & treat vital organ system(s) failure or risk of failure.
[2017-03-18] MEDS ORDERED: ACETAMINOPHEN 325 MG TABLET (FP) PO PRN (15:04)
--- NOTE | 2017-03-18 16:18 | EKG ---
Test Reason : Blood Pressure : / mmHG Vent. Rate : 112 BPM Atrial Rate : 112 BPM P-R Int : 166 ms QRS Dur : 072 ms QT Int : 340 ms P-R-T Axes : 079 015 051 degrees QTc Int : 464 ms SINUS TACHYCARDIA, INTRAATRIAL CONDUCTION ABNORMALITY NONSPECIFIC ST-T ABNORMALITIES WHEN COMPARED WITH ECG OF 25-APR-2015 05:26, CORELATE CLINICALLY AND REPEAT INDICATED Confirmed by SOPHIA ROME MD ([id number]) on 03/18/2017 4:18:24 PM Referred By: Confirmed By:SOPHIA ROME MD
[2017-03-18] MEDS: LISINOPRIL 20 MG TABLET (FP) PO SCH ×2 (16:21→23:27)
[2017-03-18] MEDS ORDERED: SODIUM CHLORIDE IV SCH (17:15)
[2017-03-18] MEDS ORDERED: INSULIN REGULAR IV SCH (17:15)
[2017-03-18 17:56] LABS: ANION GAP 11 (8-16); CALCIUM 8.9 mg/dL (8.5-10.1); CO2 23 mmol/L (21-32); CREATININE 1.1 mg/dL (0.55-1.02); GLUCOSE,RANDOM 128 mg/dL (74-106)
[2017-03-18 17:58] LABS: MAGNESIUM 2.1 mg/dL (1.8-2.4)
--- NOTE | 2017-03-18 18:46 | HP ---
Admitting History and Physical - Primary Care Physician PCP: Angel Lopez - Admission Chief Complaint: ACUTE DKA History of Present Illness: 42 year old female with PMH of poorly controlled diabetes (A1C 11.6 11/2016 with an admission in 2013 for DKA) and HTN presenting with N/V/D since yesterday later afternoon. She denies strange food ingestion or any recent sick contacts. She started feeling nauseous early yesterday afternoon which progressed to worsening N/V/D throughout the day and night. She describes the vomit as bilious but non-bloody and the diarrhea as non-bloody. Difficult to obtain a full history because patient was actively vomiting during interview. No fevers, chills, chest pain, or other sick symptoms. History Source: Medical Record Limitations to Obtaining History: Clinical Condition - Past Medical History Cardiovascular: Yes: HTN Gastrointestinal: Yes: Constipation, GERD ...LMP: 02/23/17 Heme/Onc: No: Anemia, B12 Deficiency, Bleeding Disorder, Cancer, Current Chemotherapy, Current Radiation Therapy, Hemochromatosis, Hypercoaguable State, Myeloproliferative Synd, Sickle Cell Disease, Sickle Cell Trait, Thrombocytopenia, Other Psych: Yes: Addictions, Anxiety, Bipolar, Depression, Panic, Psychosis, Schizophrenia, Other Endocrine: Yes: Diabetes Mellitus - Past Surgical History Past Surgical History: Yes: - Smoking History Smoking history: Never smoked Have you smoked in the past 12 months: No - Alcohol/Substance Use Hx Alcohol Use: Yes (OCCASIONALLY) Home Medications - Allergies Allergies/Adverse Reactions: Allergies Allergy/AdvReac Type Severity Reaction Status Date / Time No Known Allergies Allergy Verified 03/18/17 05:29 - Home Medications Home Medications: Ambulatory Orders Insulin Lispro [Humalog] 10 unit SQ PRN PRN 04/24/15 Insulin Glargine,Hum.rec.anlog [Lantus (10mL VIAL) -] 15 units SQ HS 12/17/16 Lisinopril [Prinivil] 20 mg PO DAILY 12/17/16 Pregabalin [Lyrica -] 0 mg PO DAILY 03/18/17 Review of Systems Findings/Remarks: ASLEEP DROWSEY - Review of Systems Constitutional: reports: Weakness Eyes: reports: No Symptoms HENT: reports: No Symptoms Neck: reports: No Symptoms Cardiovascular: reports: No Symptoms Respiratory: reports: No Symptoms Gastrointestinal: reports: No Symptoms Genitourinary: reports: No Symptoms Musculoskeletal: reports: No Symptoms Integumentary: reports: No Symptoms Neurological: reports: Other Endocrine: reports: No Symptoms Hematology/Lymphatic: reports: Other Psychiatric: reports: Other Physical Examination Vital Signs: Vital Signs Temperature 99.5 F 03/18/17 17:05 Pulse Rate 114 H 03/18/17 17:05 Respiratory Rate 16 03/18/17 17:05 Blood Pressure 144/73 03/18/17 17:05 O2 Sat by Pulse Oximetry (%) 100 03/18/17 17:55 Constitutional: Yes: Moderate Distress Eyes: Yes: WNL HENT: Yes: WNL Neck: Yes: WNL Cardiovascular: Yes: WNL Respiratory: Yes: WNL Gastrointestinal: Yes: WNL Renal/: Yes: WNL Musculoskeletal: Yes: WNL Extremities: Yes: WNL Edema: No Peripheral Pulses WNL: Yes Integumentary: Yes: WNL Wound/Incision: Yes: Clean/Dry Neurological: Yes: WNL ...Motor Strength: WNL Psychiatric: Yes: Other Labs: CBC, BMP 03/18/17 16:45 Imaging - Results Chest X-ray: Report Reviewed Problem List - Problems (1) DKA (diabetic ketoacidoses) Code(s): E13.10 - OTH DIABETES MELLITUS WITH KETOACIDOSIS WITHOUT COMA Qualifiers: Diabetes mellitus type: type 2 Diabetes mellitus complication detail: without coma Qualified Code(s): E13.10 - Other specified diabetes mellitus with ketoacidosis without coma (2) Intractable vomiting with nausea Code(s): R11.2 - NAUSEA WITH VOMITING, UNSPECIFIED Qualifiers: Vomiting type: unspecified Qualified Code(s): R11.2 - Nausea with vomiting, unspecified (3) Diabetes Code(s): E11.9 - TYPE 2 DIABETES MELLITUS WITHOUT COMPLICATIONS Qualifiers: Diabetes mellitus type: type 2 Diabetes mellitus complication status: with hyperglycemia Diabetes mellitus director long term care insulin use: with director long term care use Qualified Code(s): E11.65 - Type 2 diabetes mellitus with hyperglycemia ; 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
[2017-03-18] MEDS: METOCLOPRAMIDE HCL INJECTION 10 MG/2 ML VIAL IVPB SCH (19:30)
--- NOTE | 2017-03-18 19:30 | CON.GI ---
Consult Consult Specialty:: gastroenterology Referred by:: Dr Ezequiel Lopez Reason for Consultation:: intractable nausea and vomiting - History of Present Illness History of Present Illness: 42 y/o female with PMH DM was admitted with DKA associated with nausea,vomiting . She denies dysphagia, abdominal pain, constipation and rectal bleeding. - Past Medical History Cardio/Vascular: Yes: HTN Gastrointestinal: Yes: Constipation, GERD ...LMP: 02/23/17 Psych: Yes: Addictions, Anxiety, Bipolar, Depression, Panic, Psychosis, Schizophrenia, Other Endocrine: Yes: Diabetes Mellitus - Past Surgical History Past Surgical History: Yes: - Alcohol/Substance Use Hx Alcohol Use: Yes (OCCASIONALLY) - Smoking History Smoking history: Never smoked Have you smoked in the past 12 months: No Home Medications - Allergies Allergies/Adverse Reactions: Allergies Allergy/AdvReac Type Severity Reaction Status Date / Time No Known Allergies Allergy Verified 03/18/17 05:29 - Home Medications Home Medications: Ambulatory Orders Insulin Lispro [Humalog] 10 unit SQ PRN PRN 04/24/15 Insulin Glargine,Hum.rec.anlog [Lantus (10mL VIAL) -] 15 units SQ HS 12/17/16 Lisinopril [Prinivil] 20 mg PO DAILY 12/17/16 Pregabalin [Lyrica -] 0 mg PO DAILY 03/18/17 Review of Systems - Review of Systems Constitutional: denies: Fever Eyes: denies: Blind Spots HENT: denies: Difficult Swallowing Neck: denies: Decreased ROM Cardiovascular: denies: Chest Pain Respiratory: denies: SOB, Wheezing Gastrointestinal: reports: Nausea, Vomiting. denies: Abdominal Pain, Bloating, Diarrhea, Dysphagia, Indigestion, Melena, Rectal Bleeding, Vomiting Blood Physical Exam-GI Vital Signs: Vital Signs Temperature 99.5 F 03/18/17 17:05 Pulse Rate 114 H 03/18/17 17:05 Respiratory Rate 16 03/18/17 17:05 Blood Pressure 144/73 03/18/17 17:05 O2 Sat by Pulse Oximetry (%) 100 03/18/17 17:55 Constitutional: Yes: Well Nourished Eyes: Yes: Conjunctiva Clear HENT: Yes: Atraumatic, Tonsillar Exudate Cardiovascular: Yes: Regular Rate and Rhythm Respiratory: Yes: CTA Bilaterally ...Palpate: Yes: Soft. No: Firm/Rigid, Guarding, Hepatomegaly, Mass, Pulsatile Mass, Splenomegaly, Tenderness Labs: CBC, BMP 03/18/17 16:45 Problem List - Problems (1) Intractable vomiting with nausea Assessment/Plan: secondary to DKA and possible gastroparesis R> IV Reglan then give 5mg 30 min ac for 4 weeks only to avoid side effects Protonix 40mg daily made aware to ff-up for outpatient EGD Code(s): R11.2 - NAUSEA WITH VOMITING, UNSPECIFIED Qualifiers: Vomiting type: unspecified Qualified Code(s): R11.2 - Nausea with vomiting, unspecified
[2017-03-18] MEDS ORDERED: SODIUM CHLORIDE 1,000 ML IV SCH (19:45)
[2017-03-18] MEDS: INSULIN SLIDING SCALE (NOVOLOG) 1 VIAL SQ SCH ×2 (20:00→23:53)
[2017-03-18] MEDS ORDERED: CHLORHEXIDINE GLUCONATE 4% CLEANSER FOR DECOLONIZATION TP SCH (22:00)
[2017-03-18] MEDS ORDERED: INSULIN DETEMIR 100 UNITS/ML MDV SQ SCH (22:00)
[2017-03-18] MEDS: MUPIROCIN 2% TOPICAL OINTMENT FOR DECOLONIZATION NS SCH (22:28)
--- NOTE | 2017-03-18 23:26 | CONSULT ---
Consult Consult Specialty:: endocrine Referred by:: dr.rabadi thornton Reason for Consultation:: diabetes dka - History of Present Illness Chief Complaint: nausea and vomiting History of Present Illness: 42 year old female with PMH of poorly controlled diabetes (A1C 11.6 11/2016 with an admission in 2013 for DKA) and HTN presenting with N/V/D since yesterday later afternoon. She denies strange food ingestion or travel abroad,has had difficulty controlling diabetes since running out of her insulin medication.she has not been compliant with diet as well. - History Source History Provided By: Patient - Past Medical History Cardio/Vascular: Yes: HTN Gastrointestinal: Yes: Constipation, GERD ...LMP: 02/23/17 Psych: Yes: Addictions, Anxiety, Bipolar, Depression, Panic, Psychosis, Schizophrenia, Other Endocrine: Yes: Diabetes Mellitus - Past Surgical History Past Surgical History: Yes: - Alcohol/Substance Use Hx Alcohol Use: Yes (OCCASIONALLY) - Smoking History Smoking history: Never smoked Have you smoked in the past 12 months: No Home Medications - Allergies Allergies/Adverse Reactions: Allergies Allergy/AdvReac Type Severity Reaction Status Date / Time No Known Allergies Allergy Verified 03/18/17 05:29 - Home Medications Home Medications: Ambulatory Orders Insulin Lispro [Humalog] 10 unit SQ PRN PRN 04/24/15 Insulin Glargine,Hum.rec.anlog [Lantus (10mL VIAL) -] 15 units SQ HS 12/17/16 Lisinopril [Prinivil] 20 mg PO DAILY 12/17/16 Pregabalin [Lyrica -] 0 mg PO DAILY 03/18/17 Review of Systems - Review of Systems Constitutional: reports: Lethargy, Unintentional Wgt. Loss, Weakness Eyes: reports: Blurred Vision HENT: reports: No Symptoms Neck: reports: No Symptoms Cardiovascular: reports: No Symptoms Respiratory: reports: Exercise Intolerance, SOB on Exertion Gastrointestinal: reports: Bloating, Constipation Genitourinary: reports: No Symptoms Breasts: reports: No Symptoms Reported Musculoskeletal: reports: No Symptoms Integumentary: reports: No Symptoms Neurological: reports: No Symptoms Endocrine: reports: Unexplained Weight Loss Physical Exam Vital Signs: Vital Signs Temperature 98.9 F 03/18/17 22:26 Pulse Rate 112 H 03/18/17 22:26 Respiratory Rate 18 03/18/17 22:26 Blood Pressure 160/70 03/18/17 22:26 O2 Sat by Pulse Oximetry (%) 100 03/18/17 20:00 Constitutional: Yes: Calm Eyes: Yes: EOM Intact HENT: Yes: Normocephalic Neck: Yes: Trachea Midline Cardiovascular: Yes: Regular Rate and Rhythm Respiratory: Yes: CTA Bilaterally Gastrointestinal: Yes: Hypoactive Bowel Sounds, Tenderness, Epigastrium ...Rectal Exam: Yes: Deferred Renal/: Yes: WNL Breast(s): Yes: WNL Musculoskeletal: Yes: WNL Extremities: Yes: WNL Edema: No Integumentary: Yes: WNL Neurological: Yes: Alert, Oriented Labs: CBC, [facility] 03/18/17 16:45 Problem List - Problems (1) DKA (diabetic ketoacidoses) Code(s): E13.10 - OTH DIABETES MELLITUS WITH KETOACIDOSIS WITHOUT COMA Qualifiers: Diabetes mellitus type: type 2 Diabetes mellitus complication detail: without coma Qualified Code(s): E13.10 - Other specified diabetes mellitus with ketoacidosis without coma (2) Intractable vomiting with nausea Code(s): R11.2 - NAUSEA WITH VOMITING, UNSPECIFIED Qualifiers: Vomiting type: unspecified Qualified Code(s): R11.2 - Nausea with vomiting, unspecified (3) Back pain Code(s): M54.9 - DORSALGIA, UNSPECIFIED Assessment/Plan Current Active Problems DKA (diabetic ketoacidoses) (Acute) Intractable vomiting with nausea (Acute) dehydration,hypovolemia Abnormal Lab Results 03/18/17 03/18/17 03/18/17 06:05 06:05 06:05 WBC 12.5 H RBC 5.40 H MCV 65.5 L MCH 20.5 L MCHC 31.3 L RDW 17.8 H Plt Count 477 H Neutrophils % 89.2 H D Monocytes % 2.2 L Sodium Carbon Dioxide Anion Gap Creatinine Random Glucose Hemoglobin A1c % Lactic Acid 2.8 H* AST Alkaline Phosphatase Total Protein Urine Glucose (UA) 3+ H D Urine Ketones 1+ H 03/18/17 03/18/17 03/18/17 06:05 07:40 07:40 WBC RBC MCV MCH MCHC RDW Plt Count Neutrophils % Monocytes % Sodium 135 L Carbon Dioxide 19 L D Anion Gap Creatinine Random Glucose 382 H* D Hemoglobin A1c % 11.2 H D 11.2 H Lactic Acid AST Alkaline Phosphatase 224 H D Total Protein Urine Glucose (UA) Urine Ketones 03/18/17 03/18/17 03/18/17 10:30 10:30 13:12 WBC RBC MCV MCH MCHC RDW Plt Count Neutrophils % Monocytes % Sodium Carbon Dioxide 17 L 15 L Anion Gap 17 H 19 H Creatinine Random Glucose 363 H* 282 H D Hemoglobin A1c % Lactic Acid 2.6 H* AST 54 H D Alkaline Phosphatase 225 H Total Protein 8.3 H Urine Glucose (UA) Urine Ketones 03/18/17 03/18/17 16:45 16:45 WBC RBC MCV MCH MCHC RDW Plt Count Neutrophils % Monocytes % Sodium Carbon Dioxide Anion Gap Creatinine 1.1 H D Random Glucose 128 H D Hemoglobin A1c % Lactic Acid 3.6 H* AST Alkaline Phosphatase Total Protein Urine Glucose (UA) Urine Ketones plan: ivfluid ns 150cc /hr insulin drip replace volume and insulin dose titration bgm q1hr bmp q4hrs
[2017-03-19 00:55] LABS: ANION GAP 14 (8-16); CO2 19 mmol/L (21-32); CREATININE 1.2 mg/dL (0.55-1.02); GLUCOSE,RANDOM 283 mg/dL (74-106)
[2017-03-19] MEDS: INSULIN SLIDING SCALE (NOVOLOG) 1 VIAL SQ SCH ×5 (03:00→21:35)
[2017-03-19] MEDS: METOCLOPRAMIDE HCL INJECTION 10 MG/2 ML VIAL IVPB SCH ×4 (03:30→19:00)
[2017-03-19 05:38] LABS: MCHC 30.9 g/dl (32.0-36.0); MEAN CELL VOLUME 64.9 fl (80-96); PLATELET COUNT 450 K/MM3 (134-434); RDW 17.8 % (11.6-15.6); WHITE BLOOD COUNT 15.7 K/mm3 (4.0-10.0)
[2017-03-19 06:03] LABS: ALBUMIN 2.8 g/dl (3.4-5.0); ANION GAP 8 (8-16); BILIRUBIN,TOTAL 0.4 mg/dL (0.2-1.0); CALCIUM 8.4 mg/dL (8.5-10.1); CO2 24 mmol/L (21-32); CREATININE 0.9 mg/dL (0.55-1.02); GLUCOSE,RANDOM 181 mg/dL (74-106); MAGNESIUM 2.3 mg/dL (1.8-2.4); SGOT/AST 25 U/L (15-37); SGPT/ALT 20 U/L (12-78); TOT PROT 6.3 g/dl (6.4-8.2)
[2017-03-19 06:04] LABS: ALK PHOS 165 U/L (45-117)
[2017-03-19] MEDS ORDERED: INSULIN DETEMIR 100 UNITS/ML MDV SQ SCH ×4 (07:00→22:55)
[2017-03-19] MEDS: LISINOPRIL 20 MG TABLET (FP) PO SCH (09:25)
[2017-03-19] MEDS: MUPIROCIN 2% TOPICAL OINTMENT FOR DECOLONIZATION NS SCH (09:57)
--- NOTE | 2017-03-19 11:00 | PN ---
Teaching Attending Note Name of Resident: Ishmael Capone ATTENDING PHYSICIAN STATEMENT I saw and evaluated the patient. I reviewed the resident's note and discussed the case with the resident. I agree with the resident's findings and plan as documented. SUBJECTIVE: Pt seen and examined in the ICU. Feels better today. Off insulin gtt after anion gap closed. Tolerated PO this AM. Some abdominal soreness from vomiting. OBJECTIVE: Last Vital Signs Temp Pulse Resp BP Pulse Ox 98.7 F 101 H 18 150/86 100 03/19/17 10:00 03/19/17 10:00 03/19/17 10:00 03/19/17 10:00 03/18/17 20:00 Intake & Output 03/16/17 03/17/17 03/18/17 03/19/17 23:59 23:59 23:59 23:59 Intake Total 3666 1000 Output Total 600 Balance 3066 1000 Weight 200 lb Gen: NAD at rest Heart: tachycardic, regular Lung: decreased breath sounds at the bases Abd: soft, nontender Ext: no edema CBC, BMP 03/19/17 05:05 03/19/17 05:05 Active Medications Acetaminophen (Tylenol -) 650 mg PO Q6H PRN PRN Reason: FEVER OR PAIN Last Admin: 03/19/17 07:05 Dose: 650 mg Chlorhexidine Gluconate (Hibiclens For Decolonization -) 1 applic TP HS [facility] Last Admin: 03/18/17 22:29 Dose: 1 applic Dextrose/Sodium Chloride (D5-Ns -) 1,000 mls @ 75 mls/hr IV ASDIR [facility] Last Admin: 03/18/17 23:55 Dose: 75 mls/hr Insulin Aspart (Novolog Vial Sliding Scale -) 1 vial SQ ACHS [facility] PRN Reason: Protocol Last Admin: 03/19/17 06:59 Dose: 4 units Insulin Detemir (Levemir Vial) 10 units SQ HS NILO Lisinopril (Prinivil) 20 mg PO DAILY [facility] Last Admin: 03/19/17 09:25 Dose: 20 mg Metoclopramide HCl (Reglan Injection -) 10 mg IVPB Q8H [facility] Last Admin: 03/19/17 03:30 Dose: 10 mg Mupirocin (Bactroban Ointment (For Decolonization) -) 1 applic NS BID [facility] Stop: 03/23/17 21:59 Last Admin: 03/19/17 09:57 Dose: 1 applic ASSESSMENT AND PLAN: Diabetic Ketoacidosis improved HTN Leukocytosis likely leukemoid response - glucose control - monitor BGM - PO as tolerated - can d/c IVF as pt hypertensive - antiemetics - OOB to chair - DVT prophylaxis - can monitor on floor
--- NOTE | 2017-03-19 13:41 | PN ---
Physical Exam: SUBJECTIVE: Patient stated that she's feeling much better. No more n/v, abd pain. She's also tolerating diet. No other complaint. OBJECTIVE: Vital Signs Period Temp Pulse Resp BP Sys/[place] Pulse Ox Last 24 Hr 97.8 F-99.5 F 100-120 16-20 112-170/59-93 100-100 GENERAL: AAO x 3, in no acute cardiopulmonary distress EYES: Pupils equal, round and reactive to light, sclera anicteric, conjunctiva clear EARS, NOSE, THROAT: oropharynx clear without exudates. Moist mucous membranes. LUNGS: CTAB HEART: Tachycardic, normal S1 and S2 without murmur, rub or gallop. ABDOMEN: Soft, nontender, not distended, normoactive bowel sounds, no guarding, no rebound, no masses. LOWER EXTREMITIES: 2+ pulses, No peripheral edema in L leg. Warm and edematous in R foot, non tender. CBCD WBC 15.7 K/mm3 (4.0-10.0) H 03/19/17 05:05 RBC 4.71 M/mm3 (3.60-5.2) 03/19/17 05:05 Hgb 9.4 GM/dL (10.7-15.3) L D 03/19/17 05:05 Hct 30.6 % (32.4-45.2) L 03/19/17 05:05 MCV 64.9 fl (80-96) L 03/19/17 05:05 MCHC 30.9 g/dl (32.0-36.0) L 03/19/17 05:05 RDW 17.8 % (11.6-15.6) H 03/19/17 05:05 Plt Count 450 K/MM3 (134-434) H 03/19/17 05:05 MPV 8.0 fl (7.5-11.1) 03/19/17 05:05 CMP Sodium 143 mmol/L (136-145) 03/19/17 05:05 Potassium 3.8 mmol/L (3.5-5.1) 03/19/17 05:05 Chloride 111 mmol/L (98-107) H 03/19/17 05:05 Carbon Dioxide 24 mmol/L (21-32) D 03/19/17 05:05 Anion Gap 8 (8-16) 03/19/17 05:05 BUN 13 mg/dL (7-18) 03/19/17 05:05 Creatinine 0.9 mg/dL (0.55-1.02) D 03/19/17 05:05 Creat Clearance w eGFR > 60 (>60) 03/19/17 05:05 Calcium 8.4 mg/dL (8.5-10.1) L 03/19/17 05:05 Total Bilirubin 0.4 mg/dL (0.2-1.0) 03/19/17 05:05 AST 25 U/L (15-37) D 03/19/17 05:05 ALT 20 U/L (12-78) D 03/19/17 05:05 Alkaline Phosphatase 165 U/L (45-117) H D 03/19/17 05:05 Total Protein 6.3 g/dl (6.4-8.2) L D 03/19/17 05:05 Albumin 2.8 g/dl (3.4-5.0) L 03/19/17 05:05 Intake & Output 03/16/17 03/17/17 03/18/17 03/19/17 23:59 23:59 23:59 23:59 Intake Total 3666 1000 Output Total 600 Balance 3066 1000 Weight 90.718 kg IMAGING CXR on 03/18: no acute pathology ASSESSMENT/PLAN: 42 yo AA F with h/o HTN and uncontrolled IDDM admitted to the ICU for DKA. Endo: DKA - Resolved - On levemir 10 units HS and novolog sliding scale - On reglan IV - Monitor BMP ID: Leukocytosis with left shift - Reactive vs. suspected R foot cellulitis - Received keflex for cellulitis at wound care center - DKA associated with leukocytosis in prior admission * Treated with vanco + zosyn - Awaiting ID input FEN - No IVF indicated - Monitor K+ and Na+ - DM diet Prophylaxis - DVT: SCDs - GI: not indicated Dispo - Transfer to floor Ishmael Capone, ICU Resident PGY-2 Pager: [phone] Visit type - Emergency Visit Emergency Visit: No - New Patient This patient is new to me today: No - Critical Care Critical Care patient: Yes Total Critical Care Time (in minutes): 30 Critical Care Statement: The care of this patient involved high complexity decision making to prevent further life threatening deterioration of the patient 's condition and/or to evalute & treat vital organ system(s) failure or risk of failure.
--- NOTE | 2017-03-19 16:51 | PN ---
Progress Note, Physician Chief Complaint: SEEN IN ICU AWAKE ALERT FEELING BETTER - Current Medication List Current Medications: Active Medications Acetaminophen (Tylenol -) 650 mg PO Q6H PRN PRN Reason: FEVER OR PAIN Last Admin: 03/19/17 07:05 Dose: 650 mg Chlorhexidine Gluconate (Hibiclens For Decolonization -) 1 applic TP HS NILO Last Admin: 03/18/17 22:29 Dose: 1 applic Insulin Aspart (Novolog Vial Sliding Scale -) 1 vial SQ ACHS NILO PRN Reason: Protocol Last Admin: 03/19/17 11:21 Dose: 5 units Insulin Detemir (Levemir Vial) 10 units SQ HS NILO Lisinopril (Prinivil) 20 mg PO DAILY [facility] Last Admin: 03/19/17 09:25 Dose: 20 mg Metoclopramide HCl (Reglan Injection -) 10 mg IVPB Q8H [facility] Last Admin: 03/19/17 11:21 Dose: 10 mg Mupirocin (Bactroban Ointment (For Decolonization) -) 1 applic NS BID [facility] Stop: 03/23/17 21:59 Last Admin: 03/19/17 09:57 Dose: 1 applic - Objective Vital Signs: Vital Signs Temperature 98.3 F 03/19/17 14:00 Pulse Rate 96 H 03/19/17 14:00 Respiratory Rate 16 03/19/17 14:00 Blood Pressure 123/67 03/19/17 14:00 O2 Sat by Pulse Oximetry (%) 100 03/19/17 09:00 Constitutional: Yes: No Distress Eyes: Yes: WNL HENT: Yes: WNL Neck: Yes: WNL Cardiovascular: Yes: WNL Respiratory: Yes: WNL Gastrointestinal: Yes: WNL Genitourinary: Yes: WNL Musculoskeletal: Yes: WNL Extremities: Yes: WNL Edema: No Peripheral Pulses WNL: Yes Integumentary: Yes: WNL Wound/Incision: Yes: Clean/Dry Neurological: Yes: WNL ...Motor Strength: WNL Psychiatric: Yes: WNL Labs: CBC, BMP 03/19/17 05:05 03/19/17 05:05 Problem List - Problems (1) DKA (diabetic ketoacidoses) Code(s): E13.10 - OTH DIABETES MELLITUS WITH KETOACIDOSIS WITHOUT COMA Qualifiers: Diabetes mellitus type: type 2 Diabetes mellitus complication detail: without coma Qualified Code(s): E13.10 - Other specified diabetes mellitus with ketoacidosis without coma (2) Intractable vomiting with nausea Code(s): R11.2 - NAUSEA WITH VOMITING, UNSPECIFIED Qualifiers: Vomiting type: unspecified Qualified Code(s): R11.2 - Nausea with vomiting, unspecified (3) Diabetes Code(s): E11.9 - TYPE 2 DIABETES MELLITUS WITHOUT COMPLICATIONS Qualifiers: Diabetes mellitus type: type 2 Diabetes mellitus complication status: with hyperglycemia Diabetes mellitus alf insulin use: with terminal carman use Qualified Code(s): E11.65 - Type 2 diabetes mellitus with hyperglycemia ; Z79.4 - longterm (current) use of insulin (4) Hyperglycemia Code(s): R73.9 - HYPERGLYCEMIA, UNSPECIFIED Assessment/Plan ENDOCRINE F/U IVF DIETARY CONSULT
--- NOTE | 2017-03-19 18:39 | CONSULT ---
Consult Consult Specialty:: infectious diseases Referred by:: Reason for Consultation:: leukocytosis - History of Present Illness History of Present Illness: 42 year old female with PMH of poorly controlled diabetes ( HTN admitted with nausea ,vomiting and weakness and fatigue. patient mentions that she has intractable cycle of vomiting which had gomne on for 2 days patient finally decided to come to the hospital and was admitted to icu with diabetic ketoacidosis patient was given iv fluids and insulin drip currently the patient feels well - History Source History Provided By: Patient Limitations to Obtaining History: No Limitations - Past Medical History Cardio/Vascular: Yes: HTN Gastrointestinal: Yes: Constipation, GERD ...LMP: 02/23/17 Psych: Yes: Addictions, Anxiety, Bipolar, Depression, Panic, Psychosis, Schizophrenia, Other Endocrine: Yes: Diabetes Mellitus - Past Surgical History Past Surgical History: Yes: - Alcohol/Substance Use Hx Alcohol Use: Yes (OCCASIONALLY) - Smoking History Smoking history: Never smoked Have you smoked in the past 12 months: No Home Medications - Allergies Allergies/Adverse Reactions: Allergies Allergy/AdvReac Type Severity Reaction Status Date / Time No Known Allergies Allergy Verified 03/18/17 05:29 - Home Medications Home Medications: Ambulatory Orders Insulin Lispro [Humalog] 10 unit SQ PRN PRN 04/24/15 Insulin Glargine,Hum.rec.anlog [Lantus (10mL VIAL) -] 15 units SQ HS 12/17/16 Lisinopril [Prinivil] 20 mg PO DAILY 12/17/16 Pregabalin [Lyrica -] 0 mg PO DAILY 03/18/17 Review of Systems - Review of Systems Constitutional: reports: Weakness, Other Eyes: reports: No Symptoms HENT: reports: No Symptoms Neck: reports: No Symptoms Cardiovascular: reports: No Symptoms Respiratory: reports: No Symptoms Gastrointestinal: reports: No Symptoms Genitourinary: reports: No Symptoms Musculoskeletal: reports: No Symptoms Integumentary: reports: No Symptoms Neurological: reports: No Symptoms Endocrine: reports: No Symptoms Hematology/Lymphatic: reports: No Symptoms Psychiatric: reports: No Symptoms Physical Exam Vital Signs: Vital Signs Temperature 98.2 F 03/19/17 17:46 Pulse Rate 102 H 03/19/17 17:46 Respiratory Rate 20 03/19/17 17:46 Blood Pressure 150/65 03/19/17 17:46 O2 Sat by Pulse Oximetry (%) 100 03/19/17 09:00 Constitutional: Yes: No Distress, Calm HENT: Yes: Atraumatic Neck: Yes: Supple Cardiovascular: Yes: Regular Rate and Rhythm Respiratory: Yes: Regular, CTA Bilaterally Gastrointestinal: Yes: Normal Bowel Sounds, Soft Musculoskeletal: Yes: WNL Extremities: Yes: WNL Integumentary: Yes: WNL Neurological: Yes: Alert, Oriented Psychiatric: Yes: Alert, Oriented Labs: CBC, BMP 03/19/17 05:05 03/19/17 05:05 Assessment/Plan Problem List - Problems (1) DKA (diabetic ketoacidoses) Code(s): E13.10 - OTH DIABETES MELLITUS WITH KETOACIDOSIS WITHOUT COMA Qualifiers: Diabetes mellitus type: type 2 Diabetes mellitus complication detail: without coma Qualified Code(s): E13.10 - Other specified diabetes mellitus with ketoacidosis without coma (2) Intractable vomiting with nausea Code(s): R11.2 - NAUSEA WITH VOMITING, UNSPECIFIED Qualifiers: Vomiting type: unspecified Qualified Code(s): R11.2 - Nausea with vomiting, unspecified (3) Diabetes Code(s): E11.9 - TYPE 2 DIABETES MELLITUS WITHOUT COMPLICATIONS Qualifiers: Diabetes mellitus type: type 2 Diabetes mellitus complication status: with hyperglycemia Diabetes mellitus manager terminal insulin use: with fci use Qualified Code(s): E11.65 - Type 2 diabetes mellitus with hyperglycemia ; Z79.4 - senior living (current) use of insulin (4) Hyperglycemia Code(s): R73.9 - HYPERGLYCEMIA, UNSPECIFIED leukocytosis plan we will continue current mgmt will check what is wbc tomorrow if wbc is high then we will consider starting abx also if wbc is higher will do a urine c and s currently patient doing well cc time 45 min
[2017-03-19] MEDS ORDERED: ACETAMINOPHEN 325 MG TABLET (FP) PO PRN (18:44)
[2017-03-19] MEDS ORDERED: INSULIN (NOVOLOG) ASPART 100 UNITS/ML 10ML VIAL ONE (21:34)
[2017-03-19] MEDS ORDERED: CHLORHEXIDINE GLUCONATE 4% CLEANSER FOR DECOLONIZATION TP SCH (22:00)
[2017-03-19] MEDS ORDERED: MUPIROCIN 2% TOPICAL OINTMENT FOR DECOLONIZATION NS SCH (22:00)
--- NOTE | 2017-03-19 22:59 | PN ---
Progress Note (short form) - Note Progress Note: diabetes mellitus,sp dka,dehydration,now in recovery mode diet and nutrition consult for senior care diabetic management Current Active Problems DKA (diabetic ketoacidoses) (Acute) Intractable vomiting with nausea (Acute) Abnormal Lab Results 03/19/17 03/19/17 03/19/17 00:01 05:05 05:05 WBC 15.7 H Hgb 9.4 L D Hct 30.6 L MCV 64.9 L MCH 20.0 L MCHC 30.9 L RDW 17.8 H Plt Count 450 H Chloride 108 H 111 H Carbon Dioxide 19 L Creatinine 1.2 H Random Glucose 283 H D 181 H D Calcium 8.0 L 8.4 L Alkaline Phosphatase 165 H D Total Protein 6.3 L D Albumin 2.8 L Laboratory Results - last 24 hr 03/18/17 03/18/17 03/19/17 20:14 23:44 00:01 WBC RBC Hgb Hct MCV MCH MCHC RDW Plt Count MPV Sodium 141 Potassium 3.9 Chloride 108 H Carbon Dioxide 19 L Anion Gap 14 BUN 13 Creatinine 1.2 H Creat Clearance w eGFR POC Glucometer 165.34144 375.55633 Random Glucose 283 H D Calcium 8.0 L Magnesium Total Bilirubin AST ALT Alkaline Phosphatase Total Protein Albumin 03/19/17 03/19/17 03/19/17 02:56 05:05 05:05 WBC 15.7 H RBC 4.71 Hgb 9.4 L D Hct 30.6 L MCV 64.9 L MCH 20.0 L MCHC 30.9 L RDW 17.8 H Plt Count 450 H MPV 8.0 Sodium 143 Potassium 3.8 Chloride 111 H Carbon Dioxide 24 D Anion Gap 8 BUN 13 Creatinine 0.9 D Creat Clearance w eGFR > 60 POC Glucometer 182.46948 Random Glucose 181 H D Calcium 8.4 L Magnesium 2.3 Total Bilirubin 0.4 AST 25 D ALT 20 D Alkaline Phosphatase 165 H D Total Protein 6.3 L D Albumin 2.8 L 03/19/17 03/19/17 03/19/17 11:17 17:34 21:33 WBC RBC Hgb Hct MCV MCH MCHC RDW Plt Count MPV Sodium Potassium Chloride Carbon Dioxide Anion Gap BUN Creatinine Creat Clearance w eGFR POC Glucometer [phone] 136 Random Glucose Calcium Magnesium Total Bilirubin AST ALT Alkaline Phosphatase Total Protein Albumin plan: levemir 20 units am levemir 10 u hs novolog scale dose adjustment Problem List - Problems (1) DKA (diabetic ketoacidoses) Code(s): E13.10 - OTH DIABETES MELLITUS WITH KETOACIDOSIS WITHOUT COMA Qualifiers: Diabetes mellitus type: type 2 Diabetes mellitus complication detail: without coma Qualified Code(s): E13.10 - Other specified diabetes mellitus with ketoacidosis without coma (2) Intractable vomiting with nausea Code(s): R11.2 - NAUSEA WITH VOMITING, UNSPECIFIED Qualifiers: Vomiting type: unspecified Qualified Code(s): R11.2 - Nausea with vomiting, unspecified (3) Back pain Code(s): M54.9 - DORSALGIA, UNSPECIFIED
[2017-03-20] MEDS: METOCLOPRAMIDE HCL INJECTION 10 MG/2 ML VIAL IVPB SCH ×2 (03:36→11:21)
[2017-03-20] MEDS ORDERED: INSULIN (NOVOLOG) ASPART 100 UNITS/ML 10ML VIAL ONE ×2 (06:06→11:17)
[2017-03-20] MEDS: INSULIN SLIDING SCALE (NOVOLOG) 1 VIAL SQ SCH ×2 (06:24→11:21)
[2017-03-20] MEDS ORDERED: INSULIN DETEMIR 100 UNITS/ML MDV SQ SCH (07:00)
[2017-03-20 07:15] LABS: ANION GAP 9 (8-16); CALCIUM 8.1 mg/dL (8.5-10.1); CO2 26 mmol/L (21-32); CREATININE 0.7 mg/dL (0.55-1.02); GLUCOSE,RANDOM 151 mg/dL (74-106); MAGNESIUM 2.2 mg/dL (1.8-2.4)
[2017-03-20 07:23] LABS: BASOPHIL 0.6 % (0-2.0); EOSINOPHIL 1.3 % (0-4.5); MCHC 31.9 g/dl (32.0-36.0); MEAN CELL VOLUME 65.8 fl (80-96); MEAN PLT VOLUME 8.1 fl (7.5-11.1); NEUTROPHILS 59.1 % (42.8-82.8); PLATELET COUNT 415 K/MM3 (134-434); RDW 17.9 % (11.6-15.6); WHITE BLOOD COUNT 8.6 K/mm3 (4.0-10.0)
[2017-03-20] MEDS ORDERED: LISINOPRIL 20 MG TABLET (FP) PO SCH (10:00)
--- NOTE | 2017-03-20 10:12 | DS ---
Physical Examination Vital Signs: Vital Signs Temperature 99.2 F 03/20/17 06:13 Pulse Rate 88 03/20/17 06:13 Respiratory Rate 20 03/20/17 06:13 Blood Pressure 123/77 03/20/17 06:13 O2 Sat by Pulse Oximetry (%) 98 03/19/17 20:21 Constitutional: Yes: No Distress Eyes: Yes: WNL HENT: Yes: WNL Neck: Yes: WNL Cardiovascular: Yes: WNL Respiratory: Yes: WNL Gastrointestinal: Yes: WNL Musculoskeletal: Yes: WNL Extremities: Yes: WNL Edema: No Peripheral Pulses WNL: Yes Integumentary: Yes: WNL Wound/Incision: Yes: Clean/Dry Neurological: Yes: WNL ...Motor Strength: WNL Psychiatric: Yes: WNL Labs: CBC, BMP 03/20/17 06:05 03/20/17 06:05 Discharge Summary Reason For Visit: DKA,INTRACTABLE VOMITING WITH NAUSEA Current Active Problems DKA (diabetic ketoacidoses) (Acute) Intractable vomiting with nausea (Acute) Procedures: Principal: CXR Other Procedures: LABS/CX Hospital Course: ADMITTED ICU FOR HYPERGLYUCEMIA.DKA. AND TREATED WITH IV INSULIN/IVF, RECOVERED WELL, SEEN BY DIETARY AND ENDOCRINE WILL DC HOME AND F/U IN 1 WEEK OUTPATIENT Condition: Improved - Instructions Diet, Activity, Other Instructions: ADA LOW SODIUM Referrals: Angel Lopez MD [Primary Care Provider] - Disposition: HOME - Home Medications Comprehensive Discharge Medication List: Ambulatory Orders Insulin Lispro [Humalog Kwikpen U-100] 10 unit SQ PRN PRN 04/24/15 Insulin Glargine,Hum.rec.anlog [Lantus (10mL VIAL) -] 15 units SQ HS 12/17/16 Lisinopril [Prinivil] 20 mg PO DAILY 12/17/16 Pregabalin [Lyrica -] 0 mg PO DAILY 03/18/17 Acetaminophen [Tylenol .Regular Strength -] 650 mg PO Q6H PRN #0 tablet Insulin (Levemir) [Levemir Vial] 10 units SQ HS ml 03/20/17 Insulin (Levemir) [Levemir Vial] 20 units SQ AM ml 03/20/17 Insulin Sliding Scale [Novolog Vial Sliding Scale -] 1 vial SQ ACHS units 03/20 Mupirocin Ointment [Bactroban Ointment (For Decolonization) -] 1 applic NS BID applic 03/20/17
[2017-03-20 10:19] VITALS: BP 158/94; PULSE 90; TEMP 98.3
== END 2017-03-20 14:16 | disposition home health service (06) | DRG 420 ==
LOC: JER 05:22 → JERBED 11:06 → OBSVTOIN 11:06 → JICU 13:55 → J6S 03-19 18:35
PROVIDERS: ADMIT Family Medicine; ATTEND Family Medicine
DX: E13.10 Other specified diabetes mellitus with ketoacidosis without coma (principal); Z79.4 Long term (current) use of insulin; E87.6 Hypokalemia; I10 Essential (primary) hypertension; K21.9 Gastro-esophageal reflux disease without esophagitis; K59.00 Constipation, unspecified; F31.9 Bipolar disorder, unspecified; M79.89 Other specified soft tissue disorders; D72.829 Elevated white blood cell count, unspecified; F20.9 Schizophrenia, unspecified; M54.9 Dorsalgia, unspecified; E86.0 Dehydration
CPT/HCPCS: 36415; 71010-TC; 80048; 80053; 81003; 83036; 83605; 83735; 84100; 84703; 85025; 85027; 93005; 93010; 93970-TC; 99284-25; G0463-25

== ENCOUNTER 2017-07-10 11:46 | Inpatient (IN) | payer OTHER ==
--- NOTE | 2017-07-10 12:06 | PDOC ---
History of Present Illness - General Chief Complaint: Wound Infection Stated Complaint: RT FOOT WOUND Time Seen by Provider: 07/10/17 12:05 History Source: Patient Exam Limitations: No Limitations - History of Present Illness Initial Comments: 07/10/17 12:31 Pt. is a 42 y/o female with PMH of IDDM, HTN, Charcots foot, R foot ulcer, who presents to the ED from wound care c/o infection to her R foot. Pt. states that her R foot has become increasingly painful over the past week and it hurts to bear weight. She has noticed a foul smell from her foot. She is worried that the ulcer is getting worse. Admits to numbness in the foot, however this is normal for her. Denies fevers, chills, cough, shortness of breath, chest pain, weakness in the leg, n/v/d, frequency, dysuria, hematuria. Past History - Travel Traveled outside of the country in the last 30 days: No Close contact w/someone who was outside of country & ill: No - Past Medical History Allergies/Adverse Reactions: Allergies Allergy/AdvReac Type Severity Reaction Status Date / Time No Known Allergies Allergy Verified 07/10/17 11:51 Home Medications: Ambulatory Orders Lisinopril [Prinivil] 20 mg PO DAILY 12/17/16 Pregabalin [Lyrica -] 25 mg PO TID 03/18/17 Citalopram Hydrobromide [Celexa -] 20 mg PO DAILY 07/10/17 Dapagliflozin Propanediol [Farxiga] 20 mg PO DAILY 07/10/17 Insulin (Levemir) [Levemir Flexpen -] 20 units SQ HS 07/10/17 Insulin Lispro [Humalog] 10 unit SQ ACBK 07/10/17 Insulin Lispro [Humalog] 10 unit SQ ACLD 07/10/17 COPD: No Diabetes: Yes HTN: Yes - Immunization History Immunization Up to Date: Yes - Suicide/Smoking/Psychosocial Hx Smoking History: Never smoked Have you smoked in the past 12 months: No Hx Alcohol Use: Yes (OCCASIONALLY) Drug/Substance Use Hx: No Substance Use Type: None Hx Substance Use Treatment: No Review of Systems - Review of Systems Able to Perform ROS?: Yes Comments:: 07/10/17 12:42 CONSTITUTIONAL: Absent: fever, chills, diaphoresis, generalized weakness, malaise, loss of appetite HEENT: Absent: rhinorrhea, nasal congestion, throat pain, throat swelling, difficulty swallowing, mouth swelling, ear pain, eye pain, visual Changes CARDIOVASCULAR: Absent: chest pain, loss of consciousness, palpitations, irregular heart rate, peripheral edema RESPIRATORY: Absent: cough, shortness of breath, dyspnea with exertion, orthopnea, wheezing, stridor, hemoptysis GASTROINTESTINAL: Absent: abdominal pain, abdominal distension, nausea, vomiting, diarrhea, constipation, melena, hematochezia GENITOURINARY: Absent: dysuria, frequency, urgency, hesitancy, hematuria, flank pain, genital pain MUSCULOSKELETAL: Present: R foot pain. Absent: arthralgia, joint swelling SKIN: Present: Foot ulcer R midfoot. Absent: rash, itching, pallor HEMATOLOGIC/IMMUNOLOGIC: Absent: easy bleeding, easy bruising, lymphadenopathy, frequent infections ENDOCRINE: Absent: unexplained weight gain, unexplained weight loss, heat intolerance, cold intolerance NEUROLOGIC: Absent: headache, focal weakness or paresthesias, dizziness, unsteady gait, seizure, mental status changes, bladder or bowel incontinence PSYCHIATRIC: Absent: anxiety, depression, suicidal or homicidal ideation, hallucinations. Is the patient limited Surinamese proficient: No *Physical Exam - Vital Signs Last Vital Signs Temp Pulse Resp BP Pulse Ox 99.1 F 111 H 18 196/88 100 07/10/17 11:47 07/10/17 11:47 07/10/17 11:47 07/10/17 11:47 07/10/17 11:47 - Physical Exam Comments: 07/10/17 12:55 GENERAL: Well developed, well nourished. Awake and alert x3. No acute distress. HEENT: Normocephalic, atraumatic. PERRLA, EOMI. No conjunctival pallor. Sclera are non- icteric. Moist mucous membranes. Oropharynx is clear. NECK: Supple. Full ROM. No JVD. Carotid pulses 2+ and symmetric, without bruits. No thyromegaly. No lymphadenopathy. CARDIOVASCULAR: Regular rate and rhythm. No murmurs, rubs, or gallops. Distal pulses are 2+ and symmetric. PULMONARY: No evidence of respiratory distress. Lungs clear to auscultation bilaterally. No wheezing, rales or rhonchi. ABDOMINAL: Soft. Non-tender. Non-distended. No rebound or guarding. No organomegaly. Normoactive bowel sounds. MUSCULOSKELETAL Normal range of motion at all joints. No bony deformities or tenderness. No CVA tenderness. EXTREMITIES: R charcots foot, TTP of the R lateral foot. No cyanosis. No clubbing. No edema. No calf tenderness. SKIN: Stage 2/3 pressure ulcer [id number] round with purulent drainage. Foul odor coming from the wound. Warm and dry. Normal capillary refill. No rashes. No jaundice. NEUROLOGICAL: Alert, awake, appropriate. Cranial nerves 2-12 intact. No deficits to light touch and temperature in face, upper extremities and lower extremities. No motor deficits in the in face, upper extremities and lower extremities. Normoreflexic in the upper and lower extremities. Normal speech. Toes are down- going bilaterally. Gait is normal without ataxia. PSYCHIATRIC: Cooperative. Good eye contact. Appropriate mood and affect. ED Treatment Course - LABORATORY CBC & Chemistry Diagram: 07/11/17 08:04 07/11/17 08:04 Medical Decision Making - Medical Decision Making 07/10/17 12:58 Pt. is a 42 y/o female with PMH of IDDM, HTN, charcots foot, R foot ulcer who presents to the ED with an infected R foot ulcer. On exam pt. has increased TTP of the R lateral foot. Concerned for possible osteomylitis as well as infected foot ulcer. Will start on abx after cultures drawn. 1. CBC, CMP, PT/INR, Blood Cx, UA, Urine Cx, R Foot x-ray 2. Pain control 3. Zosyn, Vancomycin 4. Admission once labs are back 07/10/17 13:46 Wet Read R foot x-ray: Swelling and edema to R foot. Possible maxine destruction. Concerned for osteo. Labs show elevated sugars, WBC 10.2 no shift. Will contact Dr. Lopez for admission 07/10/17 14:[address] Lopez and discussed case. Will admit to [facility] at this time. *DC/Admit/Observation/Transfer Diagnosis at time of Disposition: Diabetic foot ulcer Qualifiers: Diabetic foot ulcer location: other Diabetes mellitus type: type 2 Laterality: right Non-pressure ulcer stage: unspecified non-pressure ulcer stage Qualified Code(s): E11.621 - Type 2 diabetes mellitus with foot ulcer Type 2 diabetes mellitus with foot ulcer Qualifiers: Diabetes mellitus long term care social worker insulin use: with long term care social worker use Qualified Code(s): E11.621 - Type 2 diabetes mellitus with foot ulcer - Discharge Dispostion Condition at time of disposition: Guarded Admit: Yes - Referrals - Patient Instructions - Post Discharge Activity
[2017-07-10 12:51] LABS: BASO % 0.7 % (0-2.0); EOS % 0.1 % (0-4.5); MCHC 30.9 g/dl (32.0-36.0); MEAN CELL VOLUME 62.6 fl (80-96); MEAN PLT VOLUME 8.1 fl (7.5-11.1); NEUT % 82.2 % (42.8-82.8); PLATELET COUNT 671 K/MM3 (134-434); RDW 19.4 % (11.6-15.6); WHITE BLOOD COUNT 10.2 K/mm3 (4.0-10.0)
[2017-07-10 12:54] LABS: MCH 19.3 pg (25.7-33.7)
[2017-07-10 13:07] LABS: ALBUMIN 3.1 g/dl (3.4-5.0); ANION GAP 12 (8-16); CALCIUM 8.2 mg/dL (8.5-10.1); CO2 24 mmol/L (21-32); CREATININE 1.1 mg/dL (0.55-1.02); SGOT/AST 15 U/L (15-37); SGPT/ALT 16 U/L (12-78)
[2017-07-10 13:09] LABS: ALK PHOS 162 U/L (45-117); BILIRUBIN,TOTAL 0.2 mg/dL (0.2-1.0); TOT PROT 7.6 g/dl (6.4-8.2)
[2017-07-10 13:14] LABS: GLUCOSE,RANDOM 384 mg/dL (74-106)
[2017-07-10 14:03] LABS: INR 1.04 (0.82-1.09); PROTHROMBIN TIME (PATIENT) 11.8 SEC (9.98-11.88)
[2017-07-10 14:24] LABS: URINE APPEARANCE SLCLOUDY; URINE BILIRUBIN NEGATIVE (NEGATIVE); URINE BLOOD NEGATIVE (NEGATIVE); URINE COLOR STRAW; URINE GLUCOSE (UA) 3+ (NEGATIVE); URINE KETONE NEGATIVE (NEGATIVE); URINE NITRITE NEGATIVE (NEGATIVE); URINE PROTEIN NEGATIVE (NEGATIVE); URINE UROBILINOGEN NEGATIVE mg/dL (0.2-1.0)
[2017-07-10] MEDS ORDERED: VANCOMYCIN 1,000 MG in DEXTROSE 5%-WATER - 250 ML IVPB ONE (14:32)
[2017-07-10] MEDS ORDERED: PIPERACIL/TAZOB 3.375 GM 3.375 GM/50 ML PREMIX IVPB ONE ×2 (14:32→14:39)
[2017-07-10] MEDS ORDERED: PIPERACILLIN/TAZOB 3.375 GM 3.375 GM/50 ML BAG IVPB ONE (14:39)
--- NOTE | 2017-07-10 14:53 | PDOC ---
*Physical Exam - Vital Signs Last Vital Signs Temp Pulse Resp BP Pulse Ox 99.1 F 111 H 18 196/88 100 07/10/17 11:47 07/10/17 11:47 07/10/17 11:47 07/10/17 11:47 07/10/17 11:47 ED Treatment Course - LABORATORY CBC & Chemistry Diagram: 07/10/17 12:25 07/10/17 12:25 - ADDITIONAL ORDERS Additional order review: Laboratory Results 07/10/17 07/10/17 07/10/17 13:52 13:18 12:25 PT with INR 11.80 INR 1.04 Sodium 135 L Potassium 5.3 H D Chloride 99 Carbon Dioxide 24 Anion Gap 12 BUN 12 D Creatinine 1.1 H D Creat Clearance w eGFR 54.74 Random Glucose 384 H* D Calcium 8.2 L Total Bilirubin 0.2 D AST 15 D ALT 16 Alkaline Phosphatase 162 H Total Protein 7.6 D Albumin 3.1 L Urine Color Straw Urine Appearance Slcloudy Urine pH 7.0 Ur Specific [place] 1.022 Urine Protein Negative Urine Glucose (UA) 3+ H Urine Ketones Negative Urine Blood Negative Urine Nitrite Negative Urine Bilirubin Negative Urine Urobilinogen Negative 07/10/17 12:25 RBC 5.02 MCV 62.6 L MCHC 30.9 L RDW 19.4 H MPV 8.1 Neutrophils % 82.2 D Lymphocytes % 13.5 D Monocytes % 3.5 L Eosinophils % 0.1 D Basophils % 0.7 Medical Decision Making - Medical Decision Making 07/10/17 14:51 Patient seen and evaluated with the nurse practitioner. I agree with the overall evaluation, assessment, and management with the following summary of visit: 42-year-old female presents for admission for further management of chronic foot wound now likely infected. Patient was referred to the emergency department yesterday by wound clinic but she was unable to comment that time, presents now for evaluation. Vitals as noted. Exam as noted with chronic foot wounds with severe edema and evidence of infection 42-year-old female with infected foot ulcer. Full set of labs with cultures X-ray IV antibiotics Admission *DC/Admit/Observation/Transfer Diagnosis at time of Disposition: Diabetic foot ulcer Qualifiers: Diabetic foot ulcer location: other Diabetes mellitus type: type 2 Laterality: right Non-pressure ulcer stage: unspecified non-pressure ulcer stage Qualified Code(s): E11.621 - Type 2 diabetes mellitus with foot ulcer; L97.519 - Non- pressure chronic ulcer of other part of right foot with unspecified severity; L97.519 - Non-pressure chronic ulcer of other part of right foot with unspecified severity; L97.519 - Non-pressure chronic ulcer of other part of right foot with unspecified severity; L97.519 - Non-pressure chronic ulcer of other part of right foot with unspecified severity - Referrals Referrals: Angel Lopez MD [Primary Care Provider] - - Patient Instructions - Post Discharge Activity
[2017-07-10] MEDS ORDERED: PIPERACILLIN/TAZOB 3.375 GM 3.375 GM in DEXTROSE 5%-WATER - 50 ML IVPB ONE (15:00)
[2017-07-10 16:21] LABS: URINE LEUK ESTERASE Negative (NEGATIVE)
--- NOTE | 2017-07-10 16:30 | EKG ---
Test Reason : Blood Pressure : / mmHG Vent. Rate : 103 BPM Atrial Rate : 103 BPM P-R Int : 150 ms QRS Dur : 074 ms QT Int : 328 ms P-R-T Axes : 061 -01 057 degrees QTc Int : 429 ms SINUS TACHYCARDIA POSSIBLE LEFT ATRIAL ENLARGEMENT BORDERLINE ECG WHEN COMPARED WITH ECG OF 18-MAR-2017 07:24, NO SIGNIFICANT CHANGE WAS FOUND Confirmed by YOUNG AGUILA MD ([id number]) on 07/10/2017 4:29:27 PM Referred By: Confirmed By:YOUNG AGUILA MD
[2017-07-10 17:22] LABS: ANISOCYTOSIS 1+; HYPOCHROMIA 2+; MICROCYTOSIS 2+; POLYCHROMASIA 1+; TARGET CELLS 1+
[2017-07-10] MEDS ORDERED: ACETAMINOPHEN 325 MG TABLET (FP) PO PRN (17:42)
[2017-07-10 17:52] VITALS: BMI 36.8
--- NOTE | 2017-07-10 17:58 | PN ---
Progress Note (short form) - Note Progress Note: ID consult dictated imp/reccd diabetic female with 2 month history of chronic plantar ulcer on right foot ( charcot joint) went to wound care yesterday- foot was noted to be swollen and warm- advised admission- she came today after arranging childcare for her children glucose have been okay no fevers or chills given vanco/zosyn in ED on exam has diffuse swelling of the right foot, she has a 2 cm plantar ulcer with serous drainage - she is very tender along the lateral aspect of her foot near the ulcer CBC, BMP 07/10/17 12:25 07/10/17 12:25 imp/reccd diabetic foot infection possible abscess lateral aspect of foot r/o osteomyelitis cultures have been sent esr/crp MRI podiatry consult ?need for drainage Problem List - Problems (1) Diabetic foot infection Code(s): E11.69 - TYPE 2 DIABETES MELLITUS WITH OTHER SPECIFIED COMPLICATION; L08.9 - LOCAL INFECTION OF THE SKIN AND SUBCUTANEOUS TISSUE, UNSP
[2017-07-10] MEDS: PREGABALIN 25 MG CAPSULE PO SCH ×2 (18:00→21:50)
[2017-07-10] MEDS: INSULIN DETEMIR 100 UNITS/ML MDV SQ SCH ×2 (18:00→23:22)
[2017-07-10] MEDS ORDERED: PIPERACILLIN/TAZOB 3.375 GM/50 ML PRE-DOCKED IVPB SCH (18:00)
[2017-07-10] MEDS ORDERED: PT OWN MED DRAWER 7, Y5N ONE (18:18)
[2017-07-10] MEDS: PIPERACILLIN/TAZOB 3.375 GM 3.375 GM in DEXTROSE 5%-WATER - 50 ML IVPB SCH (18:19)
[2017-07-10] MEDS ORDERED: INSULIN (NOVOLOG) ASPART 100 UNITS/ML 10ML VIAL ONE ×2 (18:23→21:39)
[2017-07-10] MEDS: INSULIN SLIDING SCALE (NOVOLOG) 1 VIAL SQ SCH ×2 (18:28→23:22)
--- NOTE | 2017-07-10 19:47 | CONS ---
DATE OF CONSULTATION: DATE OF DICTATION: 07/10/2017 INFECTIOUS DISEASE CONSULTATION REQUESTING PHYSICIAN: Angel Lopez M.D. CONSULTING PHYSICIAN: Erin Delcid M.D. HISTORY OF PRESENT ILLNESS: This is a 42-year-old woman admitted to the hospital with a 2-month history of a chronic plantar ulcer on her right foot. She has a Charcot joint in the left foot. She went to wound care yesterday. The foot was noted to be swollen and warm. She was advised admission. She came today after arranging childcare for her children. Her sugars have been okay at home. She has no fevers or chills. She had cultures drawn and was given vancomycin and Zosyn in the emergency room. PAST MEDICAL HISTORY: Notable for diabetes. For the last several years she has been on insulin. She has a Charcot joint of that foot. She has diabetic neuropathy and hypertension. SURGICAL HISTORY: Notable for 3 C-sections. There is no history of any recent antibiotic use. She has been receiving hyperbaric treatment and has been attending wound care regularly. Her engineering specialist technician is Dr. Guidry. ALLERGIES: No known drug allergies. MEDICATION: Medications at home include Celexa, insulin, Lyrica, and Prinivil. FAMILY HISTORY: Noncontributory. SOCIAL HISTORY: She lives at home with her kids, 12, 8, and 5. There is no history of any cigarette or substance use. She is not working at this time. REVIEW OF SYSTEMS: No nausea, vomiting, diarrhea, or dysuria. She otherwise feels well. PHYSICAL EXAMINATION: General: She is an obese woman in no acute distress. Vital signs: She weighs 208 pounds. HEENT: Normocephalic. Eyes are anicteric. Neck: Supple. Lungs: Clear to auscultation. Heart: Regular rate and rhythm. Abdomen: Soft, nontender. Extremities: Notable for, both feet are warm. Her right foot is swollen compared to the left. She has an open ulcer on the plantar surface with serous drainage. The lateral aspect of the right foot is exquisitely tender and warm. She had good pulses in both feet. LABORATORY: Her white count is 10.2, hemoglobin 9.7, platelets 671, and INR is 1. BUN and creatinine are 12 and 1.1 with a glucose of 384. Her urinalysis is 3+ glucose, otherwise negative. Cultures are pending. IMAGING: X-ray of the foot shows an ulcer but no evidence of any gas. And there is no obvious noted bony destruction. IMPRESSION: 1. In summary this is a 42-year-old woman with a diabetic foot infection. Possible abscess, lateral aspect of the foot. Cultures have been sent. Check a sedimentation rate, C-reactive protein with MRI of her foot. Podiatry consult with Dr. Guidry to see if there is any further drainage. I suspect the lateral aspect. She may have a small abscess there as the foot is exquisitely tender. 2. Diabetes. Narda [id number] MTDD
--- NOTE | 2017-07-10 20:24 | PN ---
Progress Note, Physician Chief Complaint: Pain to my Right foot History of Present Illness: Patient well Known to me. Was seen in wound care with tender swollen and hot foot, was sent for admission. Chelo is actively a patient of mine in Wound care being teated for a DM ulcer plantar aspect of her right foot. She has had no clinical signs of infection. She has had + clinical and radiographic signs of Charcot Athropathy. - Current Medication List Current Medications: Active Medications Acetaminophen (Tylenol -) 650 mg PO Q6H PRN PRN Reason: FEVER OR PAIN Citalopram Hydrobromide (Celexa -) 10 mg PO DAILY [facility] Heparin Sodium (Porcine) (Heparin -) 5,000 unit SQ BID [facility] Vancomycin HCl 1,000 mg/ (Dextrose) 250 mls @ 166.667 mls/hr IVPB BID NILO PRN Reason: Protocol Piperacillin Sod/Tazobactam (Sod 3.375 gm/ Dextrose) 50 mls @ 100 mls/hr IVPB Q8H-IV [facility] Last Admin: 07/10/17 18:19 Dose: Not Given Insulin Aspart (Novolog Vial Sliding Scale -) 1 vial SQ ACHS NILO PRN Reason: Protocol Last Admin: 07/10/17 18:28 Dose: 2 units Insulin Detemir (Levemir Vial) 20 units SQ HS [facility] Last Admin: 07/10/17 18:00 Dose: Not Given Lisinopril (Prinivil) 10 mg PO DAILY [facility] Pregabalin (Lyrica -) 25 mg PO TID [facility] Last Admin: 07/10/17 18:00 Dose: Not Given - Objective Vital Signs: Vital Signs Temperature 100.0 F H 07/10/17 18:00 Pulse Rate 97 H 07/10/17 18:00 Respiratory Rate 18 07/10/17 18:00 Blood Pressure 134/78 07/10/17 18:00 O2 Sat by Pulse Oximetry (%) 96 07/10/17 16:22 Constitutional: Yes: Well Nourished Eyes: Yes: WNL HENT: Yes: Atraumatic Neck: Yes: WNL Respiratory: Yes: WNL Extremities: Yes: WNL Edema: Yes (Indurated) Peripheral Pulses WNL: Yes Peripheral Pulses: Left Doralis Pedis: 2+, Right Dorsalis Pedis: 2+, Left Femoral: 2+, Right Femoral: 2+ Integumentary: Yes: Pressure Ulcer (2cm ulcer plantar aspect right foot with sero-sang driange no mal odor), Other (+ Abscess lateral apect right foot with localized edema and fluctuance) Neurological: Yes: Alert, Oriented, Cran Nerves II-XII Intact, Paresthesia ( From DM) ...Motor Strength: WNL Psychiatric: Yes: Alert, Oriented Labs: CBC, BMP Laboratory Last Values WBC 8.3 K/mm3 (4.0-10.0) 07/11/17 08:04 RBC 4.56 M/mm3 (3.60-5.2) 07/11/17 08:04 Hgb 8.9 GM/dL (10.7-15.3) L 07/11/17 08:04 Hct 28.3 % (32.4-45.2) L 07/11/17 08:04 MCV 62.0 fl (80-96) L 07/11/17 08:04 MCH 19.5 pg (25.7-33.7) L 07/11/17 08:04 MCHC 31.4 g/dl (32.0-36.0) L 07/11/17 08:04 RDW 18.8 % (11.6-15.6) H 07/11/17 08:04 Plt Count 581 K/MM3 (134-434) H 07/11/17 08:04 MPV 7.3 fl (7.5-11.1) L 07/11/17 08:04 Neutrophils % 82.2 % (42.8-82.8) D 07/10/17 12:25 Lymphocytes % 13.5 % (8-40) D 07/10/17 12:25 Monocytes % 3.5 % (3.8-10.2) L 07/10/17 12:25 Eosinophils % 0.1 % (0-4.5) D 07/10/17 12:25 Basophils % 0.7 % (0-2.0) 07/10/17 12:25 Hypochromia 2+ 07/10/17 12:25 Polychromasia 1+ 07/10/17 12:25 Anisocytosis 1+ 07/10/17 12:25 Microcytosis 2+ 07/10/17 12:25 Target Cells 1+ 07/10/17 12:25 ESR 72 mm/hr (0-20) H 07/10/17 19:45 PT with INR 11.80 SEC (9.98-11.88) 07/10/17 13:18 INR 1.04 (0.82-1.09) 07/10/17 13:18 Sodium 141 mmol/L (136-145) 07/11/17 08:04 Potassium 4.6 mmol/L (3.5-5.1) 07/11/17 08:04 Chloride 107 mmol/L (98-107) 07/11/17 08:04 Carbon Dioxide 28 mmol/L (21-32) 07/11/17 08:04 Anion Gap 6 (8-16) L 07/11/17 08:04 BUN 12 mg/dL (7-18) 07/11/17 08:04 Creatinine 0.7 mg/dL (0.55-1.02) D 07/11/17 08:04 Creat Clearance w eGFR > 60 (>60) 07/11/17 08:04 POC Glucometer 208 UNITS (80-120) 07/11/17 11:06 Random Glucose 63 mg/dL (74-106) L D 07/11/17 08:04 Hemoglobin A1c % 9.7 % (4.8-6.0) H D 07/10/17 19:45 Calcium 8.2 mg/dL (8.5-10.1) L 07/11/17 08:04 Total Bilirubin 0.2 mg/dL (0.2-1.0) 07/11/17 08:04 AST 11 U/L (15-37) L D 07/11/17 08:04 ALT 13 U/L (12-78) 07/11/17 08:04 Alkaline Phosphatase 136 U/L (45-117) H 07/11/17 08:04 C-Reactive Protein 10.5 MG/DL (0.00-0.3) H 07/10/17 19:45 Total Protein 6.5 g/dl (6.4-8.2) 07/11/17 08:04 Albumin 2.5 g/dl (3.4-5.0) L 07/11/17 08:04 Triglycerides 79 mg/dL (35-160) D 07/11/17 08:04 Cholesterol 141 mg/dL (50-200) D 07/11/17 08:04 Total LDL Cholesterol 86 mg/dL (5-100) 07/11/17 08:04 HDL Cholesterol 45 mg/dL (40-60) 07/11/17 08:04 Urine Color Straw 07/10/17 13:52 Urine Appearance Slcloudy 07/10/17 13:52 Urine pH 7.0 (5.0-8.0) 07/10/17 13:52 Ur Specific [place] 1.022 (1.001-1.035) 07/10/17 13:52 Urine Protein Negative (NEGATIVE) 07/10/17 13:52 Urine Glucose (UA) 3+ (NEGATIVE) H 07/10/17 13:52 Urine Ketones Negative (NEGATIVE) 07/10/17 13:52 Urine Blood Negative (NEGATIVE) 07/10/17 13:52 Urine Nitrite Negative (NEGATIVE) 07/10/17 13:52 Urine Bilirubin Negative (NEGATIVE) 07/10/17 13:52 Urine Urobilinogen Negative mg/dL (0.2-1.0) 07/10/17 13:52 Ur Leukocyte Esterase Negative (NEGATIVE) 07/10/17 13:52 - ....Imaging Chest X-ray: Report Reviewed X-ray: Report Reviewed, Image Reviewed (Osseous destructive changes consistant with Active Charcot arthropathy. No gas or obvious signs of loclaozed abscess) MRI: Pending (Abscess vs. Charcot Arthropathy) Problem List - Problems (1) Type 2 diabetes mellitus with foot ulcer Code(s): E11.621 - TYPE 2 DIABETES MELLITUS WITH FOOT ULCER; L97.509 - NON- PRESSURE CHRONIC ULCER OTH PRT UNSP FOOT W UNSP SEVERITY Qualifiers: Diabetes mellitus intermediate insulin use: with terminal press operator use Qualified Code( s): E11.621 - Type 2 diabetes mellitus with foot ulcer; L97.509 - Non-pressure chronic ulcer of other part of unspecified foot with unspecified severity; L97.509 - Non-pressure chronic ulcer of other part of unspecified foot with unspecified severity; L97.509 - Non-pressure chronic ulcer of other part of unspecified foot with unspecified severity; L97.509 - Non-pressure chronic ulcer of other part of unspecified foot with unspecified severity; Z79.4 - shelter (current) use of insulin; Z79.4 - shelter (current) use of insulin; Z79.4 - shelter (current) use of insulin; Z79.4 - termite treater helper (current) use of insulin (2) Type 2 diabetes mellitus with diabetic nephropathy Code(s): E11.21 - TYPE 2 DIABETES MELLITUS WITH DIABETIC NEPHROPATHY Qualifiers: Diabetes mellitus terminal press operator insulin use: with intermediate use Qualified Code( s): E11.21 - Type 2 diabetes mellitus with diabetic nephropathy; Z79.4 - termite treater helper (current) use of insulin; Z79.4 - termite treater helper (current) use of insulin; Z79.4 - termite treater helper (current) use of insulin; Z79.4 - termite treater helper (current) use of insulin Assessment/Plan 1) + clinical signs of abscess, with fluctuance 2) Patient needs I&D of Right foot 3)Pateint NPO since 12 noon, Patient to the OR tonight
[2017-07-10] MEDS: HEPARIN NA (PORCINE) 5,000 UNITS/ML 1ML VIAL SQ SCH (21:52)
--- NOTE | 2017-07-11 00:38 | CONSULT ---
Consult Consult Specialty:: endocrine Referred by:: dr.rabadi thornton Reason for Consultation:: diabetes mellitus - History of Present Illness Chief Complaint: high sugar foot infection History of Present Illness: 42 y female,pmh diabetes mellitus,diabetic foot infection right foot with chronic drainage ulcer rquiring wound debridement and iv antibiotics,has long histor high sugars despite taking insulin still wakes up high sugars,denies hypoglycemia - History Source History Provided By: Patient - Past Medical History Cardio/Vascular: Yes: HTN Gastrointestinal: Yes: Constipation, GERD ...LMP: 05/26/17 Psych: Yes: Addictions, Anxiety, Bipolar, Depression, Panic, Psychosis, Schizophrenia, Other Endocrine: Yes: Diabetes Mellitus - Past Surgical History Past Surgical History: Yes: - Alcohol/Substance Use Hx Alcohol Use: Yes (OCCASIONALLY) - Smoking History Smoking history: Never smoked Have you smoked in the past 12 months: No Home Medications - Allergies Allergies/Adverse Reactions: Allergies Allergy/AdvReac Type Severity Reaction Status Date / Time No Known Allergies Allergy Verified 07/10/17 11:51 - Home Medications Home Medications: Ambulatory Orders Lisinopril [Prinivil] 20 mg PO DAILY 12/17/16 Pregabalin [Lyrica -] 25 mg PO TID 03/18/17 Citalopram Hydrobromide [Celexa -] 20 mg PO DAILY 07/10/17 Dapagliflozin Propanediol [Farxiga] 20 mg PO DAILY 07/10/17 Insulin (Levemir) [Levemir Flexpen -] 20 units SQ HS 07/10/17 Insulin Lispro [Humalog] 10 unit SQ ACBK 07/10/17 Insulin Lispro [Humalog] 10 unit SQ ACLD 07/10/17 Review of Systems - Review of Systems Constitutional: reports: Weakness Eyes: reports: No Symptoms HENT: reports: No Symptoms Neck: reports: No Symptoms Cardiovascular: reports: No Symptoms Respiratory: reports: No Symptoms Gastrointestinal: reports: Bloating Genitourinary: reports: No Symptoms Musculoskeletal: reports: Joint Pain, Joint Swelling, Muscle Pain, Muscle Cramps Integumentary: reports: No Symptoms, Incision, Wound Neurological: reports: No Symptoms Endocrine: reports: No Symptoms Physical Exam Vital Signs: Vital Signs Temperature 98.6 F 07/10/17 22:00 Pulse Rate 88 07/10/17 22:00 Respiratory Rate 18 07/10/17 22:00 Blood Pressure 103/65 07/10/17 22:00 O2 Sat by Pulse Oximetry (%) 96 07/10/17 22:00 Constitutional: Yes: Anxious Eyes: Yes: EOM Intact HENT: Yes: Normocephalic Neck: Yes: Trachea Midline Cardiovascular: Yes: Regular Rate and Rhythm Respiratory: Yes: CTA Bilaterally Gastrointestinal: Yes: Normal Bowel Sounds ...Rectal Exam: Yes: Deferred Renal/: Yes: WNL Musculoskeletal: Yes: WNL Extremities: Yes: WNL Edema: No Edema: RLE: 1+ Wound/Incision: Yes: Well Approximated, Dressing Dry and Intact Labs: CBC, BMP 07/10/17 12:25 07/10/17 12:25 Problem List - Problems (1) Diabetic foot infection Code(s): E11.69 - TYPE 2 DIABETES MELLITUS WITH OTHER SPECIFIED COMPLICATION; L08.9 - LOCAL INFECTION OF THE SKIN AND SUBCUTANEOUS TISSUE, UNSP (2) Diabetic foot ulcer Code(s): E11.621 - TYPE 2 DIABETES MELLITUS WITH FOOT ULCER; L97.509 - NON- PRESSURE CHRONIC ULCER OTH PRT UNSP FOOT W UNSP SEVERITY Qualifiers: Diabetic foot ulcer location: other Diabetes mellitus type: type 2 Laterality: right Non-pressure ulcer stage: unspecified non-pressure ulcer stage Qualified Code(s): E11.621 - Type 2 diabetes mellitus with foot ulcer; L97.519 - Non-pressure chronic ulcer of other part of right foot with unspecified severity; L97.519 - Non-pressure chronic ulcer of other part of right foot with unspecified severity; L97.519 - Non-pressure chronic ulcer of other part of right foot with unspecified severity; L97.519 - Non-pressure chronic ulcer of other part of right foot with unspecified severity (3) Type 2 diabetes mellitus with foot ulcer Code(s): E11.621 - TYPE 2 DIABETES MELLITUS WITH FOOT ULCER; L97.509 - NON- PRESSURE CHRONIC ULCER OTH PRT UNSP FOOT W UNSP SEVERITY Qualifiers: Diabetes mellitus watermelon inspector insulin use: with watermelon inspector use Qualified Code( s): E11.621 - Type 2 diabetes mellitus with foot ulcer; L97.509 - Non-pressure chronic ulcer of other part of unspecified foot with unspecified severity; L97.509 - Non-pressure chronic ulcer of other part of unspecified foot with unspecified severity; L97.509 - Non-pressure chronic ulcer of other part of unspecified foot with unspecified severity; L97.509 - Non-pressure chronic ulcer of other part of unspecified foot with unspecified severity; Z79.4 - snf (current) use of insulin; Z79.4 - terminal system operator (current) use of insulin; Z79.4 - terminal system operator (current) use of insulin; Z79.4 - snf (current) use of insulin (4) Cellulitis Code(s): L03.90 - CELLULITIS, UNSPECIFIED (5) DKA (diabetic ketoacidoses) Code(s): E13.10 - OTH DIABETES MELLITUS WITH KETOACIDOSIS WITHOUT COMA Qualifiers: Diabetes mellitus type: type 2 Diabetes mellitus complication detail: without coma Qualified Code(s): E13.10 - Other specified diabetes mellitus with ketoacidosis without coma Assessment/Plan Current Active Problems Diabetic foot infection (Acute) Diabetic foot ulcer (Acute) Type 2 diabetes mellitus with foot ulcer (Acute) Abnormal Lab Results 07/10/17 07/10/17 07/10/17 12:25 12:25 13:52 WBC 10.2 H Hgb 9.7 L Hct 31.5 L MCV 62.6 L MCH 19.3 L MCHC 30.9 L RDW 19.4 H Plt Count 671 H D Monocytes % 3.5 L ESR Sodium 135 L Potassium 5.3 H D Creatinine 1.1 H D Random Glucose 384 H* D Calcium 8.2 L Alkaline Phosphatase 162 H C-Reactive Protein Albumin 3.1 L Urine Glucose (UA) 3+ H 07/10/17 07/10/17 19:45 19:45 WBC Hgb Hct MCV MCH MCHC RDW Plt Count Monocytes % ESR 72 H Sodium Potassium Creatinine Random Glucose Calcium Alkaline Phosphatase C-Reactive Protein 10.5 H Albumin Urine Glucose (UA) Laboratory Results - last 24 hr 07/10/17 07/10/17 07/10/17 12:25 12:25 13:18 WBC 10.2 H RBC 5.02 Hgb 9.7 L Hct 31.5 L MCV 62.6 L MCH 19.3 L MCHC 30.9 L RDW 19.4 H Plt Count 671 H D MPV 8.1 Neutrophils % 82.2 D Lymphocytes % 13.5 D Monocytes % 3.5 L Eosinophils % 0.1 D Basophils % 0.7 Hypochromia 2+ Polychromasia 1+ Anisocytosis 1+ Microcytosis 2+ Target Cells 1+ ESR PT with INR 11.80 INR 1.04 Sodium 135 L Potassium 5.3 H D Chloride 99 Carbon Dioxide 24 Anion Gap 12 BUN 12 D Creatinine 1.1 H D Creat Clearance w eGFR 54.74 POC Glucometer Random Glucose 384 H* D Calcium 8.2 L Total Bilirubin 0.2 D AST 15 D ALT 16 Alkaline Phosphatase 162 H C-Reactive Protein Total Protein 7.6 D Albumin 3.1 L Urine Color Urine Appearance Urine pH Ur Specific Left Hand Urine Protein Urine Glucose (UA) Urine Ketones Urine Blood Urine Nitrite Urine Bilirubin Urine Urobilinogen Ur Leukocyte Esterase 07/10/17 07/10/17 07/10/17 13:52 18:26 19:45 WBC RBC Hgb Hct MCV MCH MCHC RDW Plt Count MPV Neutrophils % Lymphocytes % Monocytes % Eosinophils % Basophils % Hypochromia Polychromasia Anisocytosis Microcytosis Target Cells ESR PT with INR INR Sodium Potassium Chloride Carbon Dioxide Anion Gap BUN Creatinine Creat Clearance w eGFR POC Glucometer 174 Random Glucose Calcium Total Bilirubin AST ALT Alkaline Phosphatase C-Reactive Protein 10.5 H Total Protein Albumin Urine Color Straw Urine Appearance Slcloudy Urine pH 7.0 Ur Specific Left Hand 1.022 Urine Protein Negative Urine Glucose (UA) 3+ H Urine Ketones Negative Urine Blood Negative Urine Nitrite Negative Urine Bilirubin Negative Urine Urobilinogen Negative Ur Leukocyte Esterase Negative 07/10/17 07/10/17 07/10/17 19:45 21:46 23:21 WBC RBC Hgb Hct MCV MCH MCHC RDW Plt Count MPV Neutrophils % Lymphocytes % Monocytes % Eosinophils % Basophils % Hypochromia Polychromasia Anisocytosis Microcytosis Target Cells ESR 72 H PT with INR INR Sodium Potassium Chloride Carbon Dioxide Anion Gap BUN Creatinine Creat Clearance w eGFR POC Glucometer 98 192 Random Glucose Calcium Total Bilirubin AST ALT Alkaline Phosphatase C-Reactive Protein Total Protein Albumin Urine Color Urine Appearance Urine pH Ur Specific Left Hand Urine Protein Urine Glucose (UA) Urine Ketones Urine Blood Urine Nitrite Urine Bilirubin Urine Urobilinogen Ur Leukocyte Esterase Laboratory Tests 07/10/17 07/10/17 07/10/17 12:25 18:26 21:46 POC Glucometer 174 98 Random Glucose 384 H* D plan: bgm qid novolog insulin coverage levemir 20 units am levemir 10 units hs if sugar over 150mg/dl chk hba1c
[2017-07-11] MEDS: PIPERACILLIN/TAZOB 3.375 GM 3.375 GM in DEXTROSE 5%-WATER - 50 ML IVPB SCH ×3 (01:21→17:32)
[2017-07-11] MEDS: PREGABALIN 25 MG CAPSULE PO SCH ×3 (06:15→22:04)
[2017-07-11] MEDS: INSULIN DETEMIR 100 UNITS/ML MDV SQ SCH ×2 (06:18→11:07)
[2017-07-11] MEDS: INSULIN SLIDING SCALE (NOVOLOG) 1 VIAL SQ SCH ×4 (06:19→22:08)
[2017-07-11] MEDS ORDERED: INSULIN DETEMIR 100 UNITS/ML MDV SQ SCH ×2 (07:00→22:00)
[2017-07-11 08:14] LABS: MCHC 31.4 g/dl (32.0-36.0); MEAN PLT VOLUME 7.3 fl (7.5-11.1); PLATELET COUNT 581 K/MM3 (134-434); RDW 18.8 % (11.6-15.6); WHITE BLOOD COUNT 8.3 K/mm3 (4.0-10.0)
[2017-07-11 08:15] LABS: MCH 19.5 pg (25.7-33.7)
[2017-07-11 08:45] LABS: ALBUMIN 2.5 g/dl (3.4-5.0); ALK PHOS 136 U/L (45-117); ANION GAP 6 (8-16); BILIRUBIN,TOTAL 0.2 mg/dL (0.2-1.0); CALCIUM 8.2 mg/dL (8.5-10.1); CHOLESTEROL 141 mg/dL (50-200); CO2 28 mmol/L (21-32); CREATININE 0.7 mg/dL (0.55-1.02); GLUCOSE,RANDOM 63 mg/dL (74-106); SGOT/AST 11 U/L (15-37); SGPT/ALT 13 U/L (12-78); TOT PROT 6.5 g/dl (6.4-8.2)
[2017-07-11] MEDS ORDERED: PT OWN MED DRAWER 7, Y5N ONE ×2 (09:56→21:39)
[2017-07-11] MEDS ORDERED: LISINOPRIL 10 MG TABLET (FP) PO SCH (10:00)
[2017-07-11] MEDS ORDERED: CITALOPRAM HYDROBROMIDE 10 MG TABLET (FP) PO SCH (10:00)
[2017-07-11] MEDS: VANCOMYCIN 1,000 MG in DEXTROSE 5%-WATER - 250 ML IVPB SCH ×2 (10:50→22:05)
[2017-07-11] MEDS: HEPARIN NA (PORCINE) 5,000 UNITS/ML 1ML VIAL SQ SCH ×2 (10:59→22:04)
--- NOTE | 2017-07-11 11:17 | HP ---
Admitting History and Physical - Primary Care Physician PCP: Angel Lopez - Admission Chief Complaint: WORSENING FOOT INFECTION History of Present Illness: Pt. is a 42 y/o female with PMH of IDDM, HTN, Charcots foot, R foot ulcer, who presents to the ED from wound care c/o infection to her R foot. Pt. states that her R foot has become increasingly painful over the past week and it hurts to bear weight. She has noticed a foul smell from her foot. She is worried that the ulcer is getting worse. Admits to numbness in the foot, however this is normal for her. Denies fevers, chills, cough, shortness of breath, chest pain, weakness in the leg, n/v/d, frequency, dysuria, hematuria. History Source: Patient, Medical Record - Past Medical History Cardiovascular: Yes: HTN Gastrointestinal: Yes: Constipation, GERD ...LMP: 05/26/17 Heme/Onc: No: Anemia, B12 Deficiency, Bleeding Disorder, Cancer, Current Chemotherapy, Current Radiation Therapy, Hemochromatosis, Hypercoaguable State, Myeloproliferative Synd, Sickle Cell Disease, Sickle Cell Trait, Thrombocytopenia, Other Psych: Yes: Addictions, Anxiety, Bipolar, Depression, Panic, Psychosis, Schizophrenia, Other Endocrine: Yes: Diabetes Mellitus - Past Surgical History Past Surgical History: Yes: - Smoking History Smoking history: Never smoked Have you smoked in the past 12 months: No - Alcohol/Substance Use Hx Alcohol Use: Yes (OCCASIONALLY) Home Medications - Allergies Allergies/Adverse Reactions: Allergies Allergy/AdvReac Type Severity Reaction Status Date / Time No Known Allergies Allergy Verified 07/10/17 11:51 - Home Medications Home Medications: Ambulatory Orders Lisinopril [Prinivil] 20 mg PO DAILY 12/17/16 Pregabalin [Lyrica -] 25 mg PO TID 03/18/17 Citalopram Hydrobromide [Celexa -] 20 mg PO DAILY 07/10/17 Dapagliflozin Propanediol [Farxiga] 20 mg PO DAILY 07/10/17 Insulin (Levemir) [Levemir Flexpen -] 20 units SQ HS 07/10/17 Insulin Lispro [Humalog] 10 unit SQ ACBK 07/10/17 Insulin Lispro [Humalog] 10 unit SQ ACLD 07/10/17 Review of Systems - Review of Systems Constitutional: reports: Other Eyes: reports: No Symptoms HENT: reports: No Symptoms Neck: reports: No Symptoms Cardiovascular: reports: No Symptoms Respiratory: reports: No Symptoms Gastrointestinal: reports: No Symptoms Genitourinary: reports: No Symptoms Musculoskeletal: reports: Joint Pain Integumentary: reports: Other Neurological: reports: Numbness, Parasthesia, Weakness Endocrine: reports: No Symptoms Hematology/Lymphatic: reports: No Symptoms Psychiatric: reports: No Symptoms Physical Examination Vital Signs: Vital Signs Temperature 98.4 F 07/11/17 06:00 Pulse Rate 84 07/11/17 06:00 Respiratory Rate 18 07/11/17 06:00 Blood Pressure 132/76 07/11/17 06:00 O2 Sat by Pulse Oximetry (%) 96 07/10/17 22:00 Constitutional: Yes: Mild Distress, Moderate Distress Eyes: Yes: WNL HENT: Yes: WNL Neck: Yes: WNL Cardiovascular: Yes: WNL Respiratory: Yes: WNL Gastrointestinal: Yes: WNL Renal/: Yes: WNL Musculoskeletal: Yes: WNL Extremities: Yes: Deformity Edema: No Peripheral Pulses WNL: Yes Integumentary: Yes: Pressure Ulcer Wound/Incision: Yes: Dressing Removed Neurological: Yes: Other ...Motor Strength: LLE, RLE Psychiatric: Yes: WNL Labs: CBC, BMP 07/11/17 08:04 07/11/17 08:04 Problem List - Problems (1) Dehydration Code(s): E86.0 - DEHYDRATION (2) Diabetic foot infection Code(s): E11.69 - TYPE 2 DIABETES MELLITUS WITH OTHER SPECIFIED COMPLICATION; L08.9 - LOCAL INFECTION OF THE SKIN AND SUBCUTANEOUS TISSUE, UNSP (3) Diabetic foot ulcer Code(s): E11.621 - TYPE 2 DIABETES MELLITUS WITH FOOT ULCER; L97.509 - NON- PRESSURE CHRONIC ULCER OTH PRT UNSP FOOT W UNSP SEVERITY Qualifiers: Diabetic foot ulcer location: other Diabetes mellitus type: type 2 Laterality: right Non-pressure ulcer stage: unspecified non-pressure ulcer stage Qualified Code(s): E11.621 - Type 2 diabetes mellitus with foot ulcer; L97.519 - Non-pressure chronic ulcer of other part of right foot with unspecified severity; L97.519 - Non-pressure chronic ulcer of other part of right foot with unspecified severity; L97.519 - Non-pressure chronic ulcer of other part of right foot with unspecified severity; L97.519 - Non-pressure chronic ulcer of other part of right foot with unspecified severity (4) Type 2 diabetes mellitus with foot ulcer Code(s): E11.621 - TYPE 2 DIABETES MELLITUS WITH FOOT ULCER; L97.509 - NON- PRESSURE CHRONIC ULCER OTH PRT UNSP FOOT W UNSP SEVERITY Qualifiers: Diabetes mellitus fci insulin use: with terminal supervisor use Qualified Code( s): E11.621 - Type 2 diabetes mellitus with foot ulcer; L97.509 - Non-pressure chronic ulcer of other part of unspecified foot with unspecified severity; L97.509 - Non-pressure chronic ulcer of other part of unspecified foot with unspecified severity; L97.509 - Non-pressure chronic ulcer of other part of unspecified foot with unspecified severity; L97.509 - Non-pressure chronic ulcer of other part of unspecified foot with unspecified severity; Z79.4 - dedicated intermodal truck driver (current) use of insulin; Z79.4 - senior care (current) use of insulin; Z79.4 - senior care (current) use of insulin; Z79.4 - senior care (current) use of insulin (5) Cellulitis Code(s): L03.90 - CELLULITIS, UNSPECIFIED (6) DKA (diabetic ketoacidoses) Code(s): E13.10 - OTH DIABETES MELLITUS WITH KETOACIDOSIS WITHOUT COMA Qualifiers: Diabetes mellitus type: type 2 Diabetes mellitus complication detail: without coma Qualified Code(s): E13.10 - Other specified diabetes mellitus with ketoacidosis without coma (7) Type 2 diabetes mellitus with diabetic nephropathy Code(s): E11.21 - TYPE 2 DIABETES MELLITUS WITH DIABETIC NEPHROPATHY Qualifiers: Diabetes mellitus terminal supervisor insulin use: with fci use Qualified Code( s): E11.21 - Type 2 diabetes mellitus with diabetic nephropathy; Z79.4 - dedicated intermodal truck driver (current) use of insulin; Z79.4 - dedicated intermodal truck driver (current) use of insulin; Z79.4 - senior care (current) use of insulin; Z79.4 - dedicated intermodal truck driver (current) use of insulin Assessment/Plan IV ABX PER ID PODIATRY FOR DEBRIDEMENT ENDOCRINE CONSULT [facility] CULTURES
[2017-07-11] MEDS ORDERED: INSULIN (NOVOLOG) ASPART 100 UNITS/ML 10ML VIAL ONE (12:14)
--- NOTE | 2017-07-11 14:53 | PN ---
Progress Note (short form) - Note Progress Note: still with foot pain Vital Signs Period Temp Pulse Resp BP Sys/[place] Pulse Ox Last 24 Hr 98.4 F-100.0 F 84-97 18-18 103-154/65-83 96-96 cor-rrr lungs decreased bs at bases abd soft,nt ext plantar ulcer- exquisitly tender lateral aspect of foot with some fluctuance less swelling of the Lower extremity, foot is still swollen CBC, BMP 07/11/17 08:04 07/11/17 08:04 Laboratory Tests 07/10/17 07/10/17 19:45 19:45 ESR 72 H C-Reactive Protein 10.5 H Microbiology 07/10/17 13:18 Blood - Peripheral Venous Blood Culture - Preliminary NO GROWTH OBTAINED AFTER 24 HOURS, INCUBATION TO CONTINUE FOR 4 DAYS. 07/10/17 13:18 Blood - Peripheral Venous Blood Culture - Preliminary NO GROWTH OBTAINED AFTER 24 HOURS, INCUBATION TO CONTINUE FOR 4 DAYS. a/p diabetic foot infection possible abscess lateral aspect of foot r/o osteomyelitis cultures have been sent esr/crp MRI podiatry consult ?need for drainage continue vancomycin and zosyn Problem List - Problems (1) Diabetic foot infection Code(s): E11.69 - TYPE 2 DIABETES MELLITUS WITH OTHER SPECIFIED COMPLICATION; L08.9 - LOCAL INFECTION OF THE SKIN AND SUBCUTANEOUS TISSUE, UNSP
[2017-07-11] MEDS ORDERED: PNEUMOC 13-VAL CONJ-DIP CRM/PF 0.5 ML DISP.SYRIN IM ONE (15:16)
[2017-07-11] MEDS ORDERED: FLU VACCINE QUAD 60 MCG/0.5 ML (MDV 17-18) IM ONE (16:00)
[2017-07-11] MEDS ORDERED: PNEUMOCOCCAL 23 VACCINE 0.5 ML VIAL IM ONE (16:00)
--- NOTE | 2017-07-11 16:30 | CONSULT ---
Consult Consult Specialty:: Nephrology Reason for Consultation:: hyperkalemia and dehydration - History of Present Illness Chief Complaint: sent in from wound care for right foot infection History of Present Illness: Pt is a 42 year old female with pmhx of DM, HTN, and right foot ulcer who was sent in from wound care for a right foot infection. She was found to have elevated creatinine and to be hyperkalemic. She denies history of CKD. Her DM is not controlled. She denies dysuria or hematuria. She is awake and alert. She denied fevers or chills. She does occasionally take NSAIDs for pain. - History Source History Provided By: Patient, Medical Record - Past Medical History Cardio/Vascular: Yes: HTN Gastrointestinal: Yes: Constipation, GERD ...LMP: 05/26/17 Endocrine: Yes: Diabetes Mellitus - Past Surgical History Past Surgical History: Yes: - Alcohol/Substance Use Hx Alcohol Use: Yes (OCCASIONALLY) - Smoking History Smoking history: Never smoked Have you smoked in the past 12 months: No Home Medications - Allergies Allergies/Adverse Reactions: Allergies Allergy/AdvReac Type Severity Reaction Status Date / Time No Known Allergies Allergy Verified 07/10/17 11:51 - Home Medications Home Medications: Ambulatory Orders Lisinopril [Prinivil] 20 mg PO DAILY 12/17/16 Pregabalin [Lyrica -] 25 mg PO TID 03/18/17 Citalopram Hydrobromide [Celexa -] 20 mg PO DAILY 07/10/17 Dapagliflozin Propanediol [Farxiga] 20 mg PO DAILY 07/10/17 Insulin (Levemir) [Levemir Flexpen -] 20 units SQ HS 07/10/17 Insulin Lispro [Humalog] 10 unit SQ ACBK 07/10/17 Insulin Lispro [Humalog] 10 unit SQ ACLD 07/10/17 Family Disease History - Family Disease History Family History: Denies Review of Systems - Review of Systems Constitutional: reports: No Symptoms. denies: Chills, Fever Eyes: reports: No Symptoms HENT: reports: No Symptoms Neck: reports: No Symptoms Cardiovascular: reports: No Symptoms Respiratory: reports: No Symptoms Gastrointestinal: reports: No Symptoms Genitourinary: reports: No Symptoms Musculoskeletal: reports: Joint Pain Neurological: reports: No Symptoms Endocrine: reports: No Symptoms Hematology/Lymphatic: reports: No Symptoms Psychiatric: reports: No Symptoms Physical Exam Vital Signs: Vital Signs Temperature 98.5 F 07/11/17 15:59 Pulse Rate 88 07/11/17 15:59 Respiratory Rate 18 07/11/17 15:59 Blood Pressure 133/73 07/11/17 15:59 O2 Sat by Pulse Oximetry (%) 96 07/10/17 22:00 Constitutional: Yes: Calm Eyes: Yes: Conjunctiva Clear HENT: Yes: Atraumatic Neck: Yes: Supple Cardiovascular: Yes: S1, S2 Respiratory: Yes: CTA Bilaterally Gastrointestinal: Yes: Soft Musculoskeletal: Yes: Other (dressing in place) Edema: Yes Edema: RLE: Trace Wound/Incision: Yes: Dressing Dry and Intact Neurological: Yes: Oriented Psychiatric: Yes: Oriented Labs: CBC, BMP 07/11/17 08:04 07/11/17 08:04 Laboratory Tests 03/19/17 03/19/17 03/20/17 00:01 05:05 06:05 Sodium Potassium Chloride Carbon Dioxide BUN Creatinine 1.2 H 0.9 D 0.7 D Random Glucose Urine Protein Urine Glucose (UA) Urine Blood 07/10/17 07/10/17 07/11/17 12:25 13:52 08:04 Sodium 135 L Potassium 5.3 H D Chloride 99 Carbon Dioxide 24 BUN 12 Creatinine 1.1 H D 0.7 D Random Glucose 384 H* D Urine Protein Negative Urine Glucose (UA) 3+ H Urine Blood Negative Problem List - Problems (1) Hyperkalemia Code(s): E87.5 - HYPERKALEMIA (2) Dehydration Code(s): E86.0 - DEHYDRATION (3) Type 2 diabetes mellitus with foot ulcer Code(s): E11.621 - TYPE 2 DIABETES MELLITUS WITH FOOT ULCER; L97.509 - NON- PRESSURE CHRONIC ULCER OTH PRT UNSP FOOT W UNSP SEVERITY Qualifiers: Diabetes mellitus assisted insulin use: with technician terminal and repeater use Qualified Code( s): E11.621 - Type 2 diabetes mellitus with foot ulcer; L97.509 - Non-pressure chronic ulcer of other part of unspecified foot with unspecified severity; L97.509 - Non-pressure chronic ulcer of other part of unspecified foot with unspecified severity; L97.509 - Non-pressure chronic ulcer of other part of unspecified foot with unspecified severity; L97.509 - Non-pressure chronic ulcer of other part of unspecified foot with unspecified severity; Z79.4 - penitentiary (current) use of insulin; Z79.4 - long term (current) use of insulin; Z79.4 - long term (current) use of insulin; Z79.4 - long term (current) use of insulin Assessment/Plan Current Medications Generic Name Dose Route Start Last Admin Trade Name Freq PRN Reason Stop Dose Admin Acetaminophen 650 mg 07/10/17 17:42 07/11/17 11:10 Tylenol - PO 650 mg Q6H PRN Administration FEVER OR PAIN Citalopram Hydrobromide 10 mg 07/11/17 10:00 07/11/17 10:49 Celexa - PO 10 mg DAILY NILO Administration Heparin Sodium (Porcine) 5,000 unit 07/10/17 22:00 07/11/17 10:59 Heparin - SQ Not Given BID [facility] Vancomycin HCl 1,000 mg/ 250 mls @ 166.667 mls/hr 07/11/17 10:00 07/11/17 10: 50 Dextrose IVPB 166.667 mls/hr BID NILO Administration Protocol Piperacillin Sod/Tazobactam 50 mls @ 100 mls/hr 07/10/17 18:00 07/11/17 10:50 Sod 3.375 gm/ Dextrose IVPB 100 mls/hr Q8H-IV NILO Administration Insulin Aspart 1 vial 07/10/17 17:45 07/11/17 12:18 Novolog Vial Sliding Scale - SQ 4 units ACHS NILO Administration Protocol Insulin Detemir 10 units 07/11/17 22:00 Levemir Vial SQ HS [facility] Insulin Detemir 22 units 07/11/17 07:00 07/11/17 11:07 Levemir Vial SQ 22 units AM NLIO Administration Lisinopril 10 mg 07/11/17 10:00 07/11/17 10:49 Prinivil PO 10 mg DAILY NILO Administration Pregabalin 25 mg 07/10/17 17:45 07/11/17 14:45 Lyrica - PO 25 mg TID NILO Administration Impression 1. hyperkalemia 2. dehydration 3. DM 4. DFU 5. HTN Plan - potassium improved - blood sugar better controlled - renal function is improved - will need tighter glucose control - neg blood or protein in urine - can check for microalbumin as outpt - cont with lisinopril - will follow Dr Bliss
--- NOTE | 2017-07-11 18:11 | OP ---
Operative Note - Note: Operative Date: 07/12/17 Pre-Operative Diagnosis: Deep Abscess Right foot Operation: I&D Deep abscess Right Foot Findings: Necrotic tissue with purulent drainage and mal odor down to muscle/bone Implants: iodoform packing Post-Operative Diagnosis: Same as Pre-op Surgeon: Mehdi Guidry Anesthesiologist/DIRECTOR OF PHYSICAL THERAPY: Maye Goddard Anesthesia: MAC Specimens Removed: Soft tissue Estimated Blood Loss (mls): 15 Operative Report Dictated: Yes
[2017-07-12] MEDS: PIPERACILLIN/TAZOB 3.375 GM 3.375 GM in DEXTROSE 5%-WATER - 50 ML IVPB SCH ×3 (03:00→17:09)
[2017-07-12] MEDS ORDERED: PT OWN MED DRAWER 7, Y5N ONE ×3 (03:14→16:58)
[2017-07-12] MEDS: PREGABALIN 25 MG CAPSULE PO SCH ×3 (06:29→21:14)
[2017-07-12] MEDS: INSULIN DETEMIR 100 UNITS/ML MDV SQ SCH ×2 (06:29→22:06)
[2017-07-12] MEDS: INSULIN SLIDING SCALE (NOVOLOG) 1 VIAL SQ SCH ×5 (06:31→22:07)
--- NOTE | 2017-07-12 07:55 | PN ---
Progress Note (short form) - Note Progress Note: PODIATRY Patient for I&D of deep abscess right foot Pateitn has been expained the need for this procedure no girantees have been given or implied astot he outcome and the need for possible future surgery explained. After all patietnts questions answered to her satisfacion consent was obtained Right foot: Vascular stayus intact. 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 Patient to the OR this morning Problem List - Problems (1) Type 2 diabetes mellitus with foot ulcer Code(s): E11.621 - TYPE 2 DIABETES MELLITUS WITH FOOT ULCER; L97.509 - NON- PRESSURE CHRONIC ULCER OTH PRT UNSP FOOT W UNSP SEVERITY Qualifiers: Diabetes mellitus emt intermediate insulin use: with jail use Qualified Code( s): E11.621 - Type 2 diabetes mellitus with foot ulcer; L97.509 - Non-pressure chronic ulcer of other part of unspecified foot with unspecified severity; L97.509 - Non-pressure chronic ulcer of other part of unspecified foot with unspecified severity; L97.509 - Non-pressure chronic ulcer of other part of unspecified foot with unspecified severity; L97.509 - Non-pressure chronic ulcer of other part of unspecified foot with unspecified severity; Z79.4 - roasterman (current) use of insulin; Z79.4 - roasterman (current) use of insulin; Z79.4 - roasterman (current) use of insulin; Z79.4 - [facility] (current) use of insulin (2) Type 2 diabetes mellitus with diabetic nephropathy Code(s): E11.21 - TYPE 2 DIABETES MELLITUS WITH DIABETIC NEPHROPATHY Qualifiers: Diabetes mellitus jail insulin use: with emt intermediate use Qualified Code( s): E11.21 - Type 2 diabetes mellitus with diabetic nephropathy; Z79.4 - [facility] (current) use of insulin; Z79.4 - [facility] (current) use of insulin; Z79.4 - roasterman (current) use of insulin; Z79.4 - roasterman (current) use of insulin
[2017-07-12 08:36] LABS: MCHC 30.8 g/dl (32.0-36.0); MEAN CELL VOLUME 62.2 fl (80-96); MEAN PLT VOLUME 7.7 fl (7.5-11.1); PLATELET COUNT 663 K/MM3 (134-434); RDW 18.9 % (11.6-15.6); WHITE BLOOD COUNT 8.7 K/mm3 (4.0-10.0)
[2017-07-12] MEDS ORDERED: HYDROmorphone HCL CARPU-JECT 1 MG/1 ML DISP.SYRIN IVPUSH PRN (08:38)
[2017-07-12] MEDS ORDERED: ONDANSETRON 4 MG/2 ML VIAL IVPUSH PRN ×2 (08:38→09:47)
[2017-07-12 08:39] LABS: MCH 19.2 pg (25.7-33.7)
[2017-07-12 09:13] LABS: ALBUMIN 2.8 g/dl (3.4-5.0); ALK PHOS 138 U/L (45-117); ANION GAP 9 (8-16); BILIRUBIN,TOTAL 0.2 mg/dL (0.2-1.0); CALCIUM 8.7 mg/dL (8.5-10.1); CO2 24 mmol/L (21-32); CREATININE 0.8 mg/dL (0.55-1.02); GLUCOSE,RANDOM 179 mg/dL (74-106); SGOT/AST 10 U/L (15-37); SGPT/ALT 13 U/L (12-78)
[2017-07-12] MEDS ORDERED: ACETAMINOPHEN 325 MG TABLET (FP) PO PRN (10:12)
[2017-07-12] MEDS: VANCOMYCIN 1,000 MG in DEXTROSE 5%-WATER - 250 ML IVPB SCH ×2 (11:19→21:13)
[2017-07-12] MEDS ORDERED: INSULIN (NOVOLOG) ASPART 100 UNITS/ML 10ML VIAL ONE (12:39)
[2017-07-12] MEDS: CITALOPRAM HYDROBROMIDE 10 MG TABLET (FP) PO SCH (12:40)
[2017-07-12] MEDS: HEPARIN NA (PORCINE) 5,000 UNITS/ML 1ML VIAL SQ SCH ×2 (12:40→21:13)
[2017-07-12] MEDS: LISINOPRIL 10 MG TABLET (FP) PO SCH (12:40)
[2017-07-12] MEDS: oxyCODONE HCL 5 MG TABLET PO PRN ×2 (16:51→23:41)
[2017-07-12] MEDS: ACETAMINOPHEN 325 MG TABLET (FP) PO PRN ×2 (16:52→23:41)
--- NOTE | 2017-07-12 17:19 | PN ---
Progress Note, Physician Chief Complaint: Right foot abscess History of Present Illness: in pain had I&D done today -iv abx -MRI pending -seen by ID -wbc normalized - Current Medication List Current Medications: Active Medications Acetaminophen (Tylenol -) 650 mg PO Q6H PRN PRN Reason: FEVER OR PAIN Last Admin: 07/12/17 16:52 Dose: 650 mg Acetaminophen (Tylenol -) 650 mg PO Q6H PRN PRN Reason: PAIN Citalopram Hydrobromide (Celexa -) 10 mg PO DAILY [facility] Last Admin: 07/12/17 12:40 Dose: 10 mg Heparin Sodium (Porcine) (Heparin -) 5,000 unit SQ BID [facility] Last Admin: 07/12/17 12:40 Dose: Not Given Piperacillin Sod/Tazobactam (Sod 3.375 gm/ Dextrose) 50 mls @ 100 mls/hr IVPB Q8H-IV [facility] Last Admin: 07/12/17 17:09 Dose: 100 mls/hr Vancomycin HCl 1,000 mg/ (Dextrose) 250 mls @ 166.667 mls/hr IVPB BID [facility] PRN Reason: Protocol Last Admin: 07/12/17 11:19 Dose: 166.667 mls/hr Insulin Aspart (Novolog Vial Sliding Scale -) 1 vial SQ ACHS [facility] PRN Reason: Protocol Last Admin: 07/12/17 17:08 Dose: 8 units Insulin Detemir (Levemir Vial) 10 units SQ HS [facility] Insulin Detemir (Levemir Vial) 22 units SQ AM [facility] Lisinopril (Prinivil) 10 mg PO DAILY [facility] Last Admin: 07/12/17 12:40 Dose: 10 mg Ondansetron HCl (Zofran Injection) 4 mg IVPUSH Q6H PRN PRN Reason: NAUSEA AND/OR VOMITING Oxycodone HCl (Roxicodone -) 10 mg PO Q6H PRN PRN Reason: PAIN Last Admin: 07/12/17 16:51 Dose: 10 mg Pregabalin (Lyrica -) 25 mg PO TID [facility] Last Admin: 07/12/17 13:32 Dose: 25 mg - Objective Vital Signs: Vital Signs Temperature 97.4 F L 07/12/17 11:00 Pulse Rate 78 07/12/17 11:00 Respiratory Rate 20 07/12/17 11:00 Blood Pressure 133/73 07/12/17 11:00 O2 Sat by Pulse Oximetry (%) 99 07/12/17 11:00 Constitutional: Yes: Well Nourished, No Distress, Calm Cardiovascular: Yes: Regular Rate and Rhythm Respiratory: Yes: Regular Musculoskeletal: Yes: WNL Extremities: Yes: Other (right foot abscess, dressing intact) Edema: Yes (right foot) Integumentary: Yes: Incision (post I&D) Wound/Incision: Yes: Dressing Dry and Intact Neurological: Yes: Alert, Oriented Psychiatric: Yes: Alert, Oriented Labs: CBC, BMP 07/12/17 07:25 07/12/17 07:25 INR, PTT INR 1.04 (0.82-1.09) 07/10/17 13:18 Problem List - Problems (1) Diabetic foot ulcer Assessment/Plan: -IV abx -ID consult -MRI pending to r/o osteomyelitis -pain management Code(s): E11.621 - TYPE 2 DIABETES MELLITUS WITH FOOT ULCER; L97.509 - NON- PRESSURE CHRONIC ULCER OTH PRT UNSP FOOT W UNSP SEVERITY Qualifiers: Diabetic foot ulcer location: other Diabetes mellitus type: type 2 Laterality: right Non-pressure ulcer stage: unspecified non-pressure ulcer stage Qualified Code(s): E11.621 - Type 2 diabetes mellitus with foot ulcer; L97.519 - Non-pressure chronic ulcer of other part of right foot with unspecified severity; L97.519 - Non-pressure chronic ulcer of other part of right foot with unspecified severity; L97.519 - Non-pressure chronic ulcer of other part of right foot with unspecified severity; L97.519 - Non-pressure chronic ulcer of other part of right foot with unspecified severity (2) Dehydration Code(s): E86.0 - DEHYDRATION (3) Type 2 diabetes mellitus with diabetic nephropathy Assessment/Plan: -Endocrinology consult -Insulin sliding scale -BGM Code(s): E11.21 - TYPE 2 DIABETES MELLITUS WITH DIABETIC NEPHROPATHY Qualifiers: Diabetes mellitus terminal carman insulin use: with terminal carman use Qualified Code( s): E11.21 - Type 2 diabetes mellitus with diabetic nephropathy; Z79.4 - intermediate 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
[2017-07-12] MEDS ORDERED: INSULIN DETEMIR 100 UNITS/ML MDV SQ SCH (22:00)
[2017-07-13] MEDS: PIPERACILLIN/TAZOB 3.375 GM 3.375 GM in DEXTROSE 5%-WATER - 50 ML IVPB SCH ×3 (01:15→17:20)
[2017-07-13] MEDS: PREGABALIN 25 MG CAPSULE PO SCH ×3 (06:11→21:38)
[2017-07-13] MEDS: INSULIN SLIDING SCALE (NOVOLOG) 1 VIAL SQ SCH ×4 (06:11→21:33)
[2017-07-13] MEDS: oxyCODONE HCL 5 MG TABLET PO PRN ×3 (06:12→23:14)
[2017-07-13] MEDS: ACETAMINOPHEN 325 MG TABLET (FP) PO PRN ×3 (06:12→23:15)
[2017-07-13] MEDS: INSULIN DETEMIR 100 UNITS/ML MDV SQ SCH ×2 (06:12→21:36)
[2017-07-13] MEDS ORDERED: INSULIN DETEMIR 100 UNITS/ML MDV SQ SCH (07:00)
[2017-07-13 07:18] LABS: BASO % 0.4 % (0-2.0); EOS % 3.5 % (0-4.5); MCHC 31.6 g/dl (32.0-36.0); MEAN CELL VOLUME 61.7 fl (80-96); MEAN PLT VOLUME 7.4 fl (7.5-11.1); NEUT % 58.2 % (42.8-82.8); PLATELET COUNT 561 K/MM3 (134-434); RDW 19.2 % (11.6-15.6); WHITE BLOOD COUNT 8.5 K/mm3 (4.0-10.0)
[2017-07-13] MEDS ORDERED: PT OWN MED DRAWER 7, Y5N ONE ×2 (07:19→17:15)
[2017-07-13 07:20] LABS: MCH 19.5 pg (25.7-33.7)
[2017-07-13 08:02] LABS: ALBUMIN 2.5 g/dl (3.4-5.0); ANION GAP 11 (8-16); BILIRUBIN,TOTAL 0.3 mg/dL (0.2-1.0); CALCIUM 8.3 mg/dL (8.5-10.1); CO2 25 mmol/L (21-32); CREATININE 0.8 mg/dL (0.55-1.02); GLUCOSE,RANDOM 135 mg/dL (74-106); SGOT/AST 7 U/L (15-37); SGPT/ALT 10 U/L (12-78); TOT PROT 6.5 g/dl (6.4-8.2)
[2017-07-13 08:03] LABS: ALK PHOS 119 U/L (45-117)
[2017-07-13] MEDS: HEPARIN NA (PORCINE) 5,000 UNITS/ML 1ML VIAL SQ SCH ×2 (09:20→21:38)
[2017-07-13] MEDS: LISINOPRIL 10 MG TABLET (FP) PO SCH (09:20)
[2017-07-13] MEDS: CITALOPRAM HYDROBROMIDE 10 MG TABLET (FP) PO SCH (09:20)
[2017-07-13] MEDS: VANCOMYCIN 1,000 MG in DEXTROSE 5%-WATER - 250 ML IVPB SCH ×2 (09:58→21:38)
--- NOTE | 2017-07-13 11:10 | PN ---
Progress Note (short form) - Note Progress Note: POD #1 - s/p I&D of right foot under MAC. Pt. doing well, resting comfortably in bed. No complaints. No apparent anesthetic complications noted. Continue current care.
[2017-07-13] MEDS ORDERED: INSULIN (NOVOLOG) ASPART 100 UNITS/ML 10ML VIAL ONE (11:56)
--- NOTE | 2017-07-13 23:03 | PN ---
Progress Note, Physician Chief Complaint: Right foot abscess History of Present Illness: in pain -iv abx -MRI pending -seen by ID -wbc normalized POD #1 - s/p I&D of right foot under MAC. - Current Medication List Current Medications: Active Medications Acetaminophen (Tylenol -) 650 mg PO Q6H PRN PRN Reason: FEVER OR PAIN Last Admin: 07/13/17 14:38 Dose: 650 mg Acetaminophen (Tylenol -) 650 mg PO Q6H PRN PRN Reason: PAIN Citalopram Hydrobromide (Celexa -) 10 mg PO DAILY [facility] Last Admin: 07/13/17 09:20 Dose: 10 mg Heparin Sodium (Porcine) (Heparin -) 5,000 unit SQ BID [facility] Last Admin: 07/13/17 21:38 Dose: 5,000 unit Piperacillin Sod/Tazobactam (Sod 3.375 gm/ Dextrose) 50 mls @ 100 mls/hr IVPB Q8H-IV [facility] Last Admin: 07/13/17 17:20 Dose: 100 mls/hr Vancomycin HCl 1,000 mg/ (Dextrose) 250 mls @ 166.667 mls/hr IVPB BID [facility] PRN Reason: Protocol Last Admin: 07/13/17 21:38 Dose: 166.667 mls/hr Insulin Aspart (Novolog Vial Sliding Scale -) 1 vial SQ ACHS [facility] PRN Reason: Protocol Last Admin: 07/13/17 21:33 Dose: 6 units Insulin Detemir (Levemir Vial) 27 units SQ AM [facility] Last Admin: 07/13/17 06:12 Dose: 27 units Insulin Detemir (Levemir Vial) 15 units SQ HS [facility] Last Admin: 07/13/17 21:36 Dose: 15 units Lisinopril (Prinivil) 10 mg PO DAILY [facility] Last Admin: 07/13/17 09:20 Dose: 10 mg Ondansetron HCl (Zofran Injection) 4 mg IVPUSH Q6H PRN PRN Reason: NAUSEA AND/OR VOMITING Oxycodone HCl (Roxicodone -) 10 mg PO Q6H PRN PRN Reason: PAIN Last Admin: 07/13/17 14:37 Dose: 10 mg Pregabalin (Lyrica -) 25 mg PO TID [facility] Last Admin: 07/13/17 21:38 Dose: 25 mg - Objective Vital Signs: Vital Signs Temperature 98.2 F 07/13/17 18:00 Pulse Rate 80 07/13/17 17:42 Respiratory Rate 20 07/13/17 17:42 Blood Pressure 133/73 07/13/17 17:42 O2 Sat by Pulse Oximetry (%) 99 07/13/17 09:00 Constitutional: Yes: Well Nourished, No Distress, Calm Cardiovascular: Yes: Regular Rate and Rhythm Respiratory: Yes: Regular Edema: Yes (right foot) Neurological: Yes: Alert, Oriented Psychiatric: Yes: Alert, Oriented Labs: CBC, BMP 07/13/17 06:42 07/13/17 06:42 INR, PTT INR 1.04 (0.82-1.09) 07/10/17 13:18 Problem List - Problems (1) Diabetic foot ulcer Assessment/Plan: -IV abx -ID consult -MRI pending to r/o osteomyelitis -pain management Code(s): E11.621 - TYPE 2 DIABETES MELLITUS WITH FOOT ULCER; L97.509 - NON- PRESSURE CHRONIC ULCER OTH PRT UNSP FOOT W UNSP SEVERITY Qualifiers: Diabetic foot ulcer location: other Diabetes mellitus type: type 2 Laterality: right Non-pressure ulcer stage: unspecified non-pressure ulcer stage Qualified Code(s): E11.621 - Type 2 diabetes mellitus with foot ulcer; L97.519 - Non-pressure chronic ulcer of other part of right foot with unspecified severity; L97.519 - Non-pressure chronic ulcer of other part of right foot with unspecified severity; L97.519 - Non-pressure chronic ulcer of other part of right foot with unspecified severity; L97.519 - Non-pressure chronic ulcer of other part of right foot with unspecified severity (2) Dehydration Code(s): E86.0 - DEHYDRATION (3) Type 2 diabetes mellitus with diabetic nephropathy Assessment/Plan: -Endocrinology consult -Insulin sliding scale -BGM Code(s): E11.21 - TYPE 2 DIABETES MELLITUS WITH DIABETIC NEPHROPATHY Qualifiers: Diabetes mellitus watermaster insulin use: with prison use Qualified Code( s): E11.21 - Type 2 diabetes mellitus with diabetic nephropathy; Z79.4 - half-way (current) use of insulin; Z79.4 - half-way (current) use of insulin; Z79.4 - half-way (current) use of insulin; 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
[2017-07-14] MEDS: PIPERACILLIN/TAZOB 3.375 GM 3.375 GM in DEXTROSE 5%-WATER - 50 ML IVPB SCH ×2 (01:45→09:32)
[2017-07-14] MEDS: PREGABALIN 25 MG CAPSULE PO SCH ×3 (06:32→22:55)
[2017-07-14] MEDS: INSULIN DETEMIR 100 UNITS/ML MDV SQ SCH ×2 (06:36→22:56)
[2017-07-14] MEDS: INSULIN SLIDING SCALE (NOVOLOG) 1 VIAL SQ SCH ×4 (06:36→22:55)
[2017-07-14] MEDS: oxyCODONE HCL 5 MG TABLET PO PRN (09:10)
[2017-07-14] MEDS ORDERED: PT OWN MED DRAWER 7, Y5N ONE ×2 (09:16→18:48)
[2017-07-14] MEDS: HEPARIN NA (PORCINE) 5,000 UNITS/ML 1ML VIAL SQ SCH ×2 (09:32→22:51)
[2017-07-14] MEDS: CITALOPRAM HYDROBROMIDE 10 MG TABLET (FP) PO SCH (09:32)
[2017-07-14] MEDS: LISINOPRIL 10 MG TABLET (FP) PO SCH (09:32)
[2017-07-14] MEDS: VANCOMYCIN 1,000 MG in DEXTROSE 5%-WATER - 250 ML IVPB SCH (09:32)
--- NOTE | 2017-07-14 09:54 | OP ---
DATE OF OPERATION: 07/12/2017 PREOPERATIVE DIAGNOSIS: Deep abscess, right foot. POSTOPERATIVE DIAGNOSIS: Deep abscess, right foot. SURGEON: Priscilla Daniel DPM MATERIALS: Iodoform packing. COMPLICATIONS: None. SPECIMENS REMOVED: Soft tissue. INDICATION FOR PROCEDURE: The patient is a pleasant 42-year-old female who is well known to me from the wound care clinic. She has a history of a diabetic foot ulcer on the plantar aspect of her right foot with Charcot arthropathy. She presented to [facility] complaining of pain and fever in her right foot. She was admitted for IV antibiotics. Upon admission, my physical examination revealed a deep abscess with fluctuance on the lateral aspect of her right foot. The patient was explained the need for this procedure as well as the possible complications. No guarantees were given or implied as to the outcome, and the need for possible future surgery was explained. All of the patient's questions were answered to her satisfaction, and consent was obtained. DESCRIPTION OF PROCEDURE: The proper surgical site was marked with my initials once it was confirmed with the patient. The patient was placed on the operating room table in a supine position in a good anatomical alignment with all bony prominences padded well. Once monitors were placed by the anesthesiologist and noted to be functioning well, a time-out was called. The patient's identify, name as well as the procedure and proper extremity to be operated on were identified. Once confirmed, the patient was sedated by the anesthesiologist. The right foot was then prepped and draped in the usual sterile manner. A second time-out was then called confirming the proper identify of the patient and the proper procedure and the proper extremity to be operated on. Once confirmed, attention was directed to the right foot lateral aspect where an approximately 6-cm incision was made down to the level of the bone. The incision was deepened via sharp and blunt dissection with care being taken to avoid all neurovascular structures. All unavoidable vessels were identified and ligated as necessary. It was noted at this time that there was approximately 10 mL of purulent white drainage that was expressed from the wound. There was a sinus tract that connected the plantar wound with the lateral most aspect of the foot. This area was opened, and all purulent material was drained. The foot was then milked from proximal to distal, distal to proximal, medial to lateral, and lateral to medial. This procedure was also performed on the leg from the mid calf distal. No further purulence was noted. Only serosanguineous drainage was expressed. The area was then flushed with copious amounts of sterile saline consisting and mixed with 50,000 units of bacitracin. Prior to the flush and upon the initial incision down to bone, cultures and sensitivities were taken for both aerobic and anaerobic. Specimens were then sent to microbiology for both culture and sensitivity. The soft tissue specimens that were removed were sent to Pathology for both gross and microscopic examination. Once the area was flushed copiously, the area was then packed with iodoform gauze, which was soaked in the bacitracin flush solution. The area was then dressed with a dry, sterile gauze, ABD pads, and 2 Bernice wrap. The patient tolerated all aspects of the procedure and anesthesia well and was transferred to the post anesthesia care unit with vital signs stable in no apparent distress. The sponge, instrument, and needle count was noted to be correct prior to applying the bandage. Hemostasis was noted to be under control. The post anesthesia care nurse was given the nature of the patient's condition and the procedure that was performed. The patient is to be transferred back to her floor upon PACU criteria. PRISCILLA DANIEL DPM [id number]
[2017-07-14] MEDS ORDERED: INSULIN (NOVOLOG) ASPART 100 UNITS/ML 10ML VIAL ONE ×2 (12:05→17:02)
--- NOTE | 2017-07-14 12:13 | PN ---
Progress Note (short form) - Note Progress Note: PODIATRY POST OP DAY # 2 Patient seen bedside in [facility], states she has some pain in her foot but much less and different as compared to last visit. She denies N/V/F/C, calf and leg pain and states she does have an appetite. O/ Right foot: Dressing clean dry and intact with no break through bleeding. Upon removal Sx site and wound are clean red and beefy with no driange no mal odor and no clinical signs of infection. There is minimal to no tenderness upon palpation of the Sx site directly, as well as the medial lateral plantar and dorsal foot. There in no leg or calf tenderness and there is no drainage upon compression. Vital Signs Period Temp Pulse Resp BP Sys/[place] Pulse Ox Last 24 Hr 98.2 F-98.7 F 77-83 16-20 122-141/63-85 99 Laboratory Last Values WBC 8.5 K/mm3 (4.0-10.0) 07/13/17 06:42 RBC 4.69 M/mm3 (3.60-5.2) 07/13/17 06:42 Hgb 9.1 GM/dL (10.7-15.3) L 07/13/17 06:42 Hct 29.0 % (32.4-45.2) L 07/13/17 06:42 MCV 61.7 fl (80-96) L 07/13/17 06:42 MCH 19.5 pg (25.7-33.7) L 07/13/17 06:42 MCHC 31.6 g/dl (32.0-36.0) L 07/13/17 06:42 RDW 19.2 % (11.6-15.6) H 07/13/17 06:42 Plt Count 561 K/MM3 (134-434) H 07/13/17 06:42 MPV 7.4 fl (7.5-11.1) L 07/13/17 06:42 Neutrophils % 58.2 % (42.8-82.8) D 07/13/17 06:42 Lymphocytes % 33.0 % (8-40) D 07/13/17 06:42 Monocytes % 4.9 % (3.8-10.2) 07/13/17 06:42 Eosinophils % 3.5 % (0-4.5) D 07/13/17 06:42 Basophils % 0.4 % (0-2.0) 07/13/17 06:42 Hypochromia 2+ 07/10/17 12:25 Polychromasia 1+ 07/10/17 12:25 Anisocytosis 1+ 07/10/17 12:25 Microcytosis 2+ 07/10/17 12:25 Target Cells 1+ 07/10/17 12:25 ESR 72 mm/hr (0-20) H 07/10/17 19:45 PT with INR 11.80 SEC (9.98-11.88) 07/10/17 13:18 INR 1.04 (0.82-1.09) 07/10/17 13:18 Sodium 139 mmol/L (136-145) 07/13/17 06:42 Potassium 5.0 mmol/L (3.5-5.1) 07/13/17 06:42 Chloride 103 mmol/L (98-107) 07/13/17 06:42 Carbon Dioxide 25 mmol/L (21-32) 07/13/17 06:42 Anion Gap 11 (8-16) 07/13/17 06:42 BUN 13 mg/dL (7-18) 07/13/17 06:42 Creatinine 0.8 mg/dL (0.55-1.02) 07/13/17 06:42 Creat Clearance w eGFR > 60 (>60) 07/13/17 06:42 POC Glucometer 350 UNITS (80-120) 07/14/17 11:08 Random Glucose 135 mg/dL (74-106) H D 07/13/17 06:42 Hemoglobin A1c % 9.7 % (4.8-6.0) H D 07/10/17 19:45 Calcium 8.3 mg/dL (8.5-10.1) L 07/13/17 06:42 Total Bilirubin 0.3 mg/dL (0.2-1.0) D 07/13/17 06:42 AST 7 U/L (15-37) L D 07/13/17 06:42 ALT 10 U/L (12-78) L D 07/13/17 06:42 Alkaline Phosphatase 119 U/L (45-117) H 07/13/17 06:42 C-Reactive Protein 10.5 MG/DL (0.00-0.3) H 07/10/17 19:45 Total Protein 6.5 g/dl (6.4-8.2) 07/13/17 06:42 Albumin 2.5 g/dl (3.4-5.0) L 07/13/17 06:42 Triglycerides 79 mg/dL (35-160) D 07/11/17 08:04 Cholesterol 141 mg/dL (50-200) D 07/11/17 08:04 Total LDL Cholesterol 86 mg/dL (5-100) 07/11/17 08:04 HDL Cholesterol 45 mg/dL (40-60) 07/11/17 08:04 Urine Color Straw 07/10/17 13:52 Urine Appearance Slcloudy 07/10/17 13:52 Urine pH 7.0 (5.0-8.0) 07/10/17 13:52 Ur Specific [place] 1.022 (1.001-1.035) 07/10/17 13:52 Urine Protein Negative (NEGATIVE) 07/10/17 13:52 Urine Glucose (UA) 3+ (NEGATIVE) H 07/10/17 13:52 Urine Ketones Negative (NEGATIVE) 07/10/17 13:52 Urine Blood Negative (NEGATIVE) 07/10/17 13:52 Urine Nitrite Negative (NEGATIVE) 07/10/17 13:52 Urine Bilirubin Negative (NEGATIVE) 07/10/17 13:52 Urine Urobilinogen Negative mg/dL (0.2-1.0) 07/10/17 13:52 Ur Leukocyte Esterase Negative (NEGATIVE) 07/10/17 13:52 Urine HCG, Qual Negative 07/12/17 08:45 Vancomycin Pre-Dose 13.391 ug/ml (5.0-10.0) H 07/12/17 07:25 Microbiology 07/10/17 13:05 Gram Stain - Final Foot - Right Wound Culture - Final Strep Agalactiae Group B Staphylococcus Aureus Streptococcus Viridans 07/10/17 13:18 Blood Culture - Preliminary Blood - Peripheral Venous NO GROWTH OBTAINED AFTER 72 HOURS, INCUBATION TO CONTINUE FOR 2 DAYS. 07/10/17 13:18 Blood Culture - Preliminary Blood - Peripheral Venous NO GROWTH OBTAINED AFTER 72 HOURS, INCUBATION TO CONTINUE FOR 2 DAYS. 07/12/17 10:18 Gram Stain - Final Wound-Other Wound Culture - Final 07/12/17 10:18 Gram Stain - Final Wound Wound Culture - Preliminary Beta Hemolytic Strep Streptococcus Viridans 07/10/17 13:52 Urine Culture - Final Urine - Urine Clean Catch Staphylococcus Aureus A/ POD # 2 I&D deep Right foot with pulse levage and deep tissue C&S ( results noted). Leukocytosis normalized P/ 1)) Pateitn Sx stable for D/C. D/C to home as per medical team 2) Recommend Tunnelled Cath with 6 weeks IV Abx as per INfxs Dz 3) Daily NS wet-to- dry dressing 4) Pateitn to follow up in Wound care upon D/C on A Friday 5) MRI Pending 6) Will follow Problem List - Problems (1) Type 2 diabetes mellitus with foot ulcer Code(s): E11.621 - TYPE 2 DIABETES MELLITUS WITH FOOT ULCER; L97.509 - NON- PRESSURE CHRONIC ULCER OTH PRT UNSP FOOT W UNSP SEVERITY Qualifiers: Diabetes mellitus toy consultant insulin use: with care home use Qualified Code( s): E11.621 - Type 2 diabetes mellitus with foot ulcer; L97.509 - Non-pressure chronic ulcer of other part of unspecified foot with unspecified severity; L97.509 - Non-pressure chronic ulcer of other part of unspecified foot with unspecified severity; L97.509 - Non-pressure chronic ulcer of other part of unspecified foot with unspecified severity; L97.509 - Non-pressure chronic ulcer of other part of unspecified foot with unspecified severity; Z79.4 - snf (current) use of insulin; Z79.4 - snf (current) use of insulin; Z79.4 - snf (current) use of insulin; Z79.4 - 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
--- NOTE | 2017-07-14 15:40 | PN ---
Progress Note, Physician History of Present Illness: Pt seen and examined at bedside. She has no complaints. She denies dysuria or hematuria. - Current Medication List Current Medications: Active Medications Acetaminophen (Tylenol -) 650 mg PO Q6H PRN PRN Reason: FEVER OR PAIN Last Admin: 07/13/17 23:15 Dose: 650 mg Acetaminophen (Tylenol -) 650 mg PO Q6H PRN PRN Reason: PAIN Last Admin: 07/14/17 09:10 Dose: 650 mg Citalopram Hydrobromide (Celexa -) 10 mg PO DAILY [facility] Last Admin: 07/14/17 09:32 Dose: 10 mg Heparin Sodium (Porcine) (Heparin -) 5,000 unit SQ BID [facility] Last Admin: 07/14/17 09:32 Dose: 5,000 unit Piperacillin Sod/Tazobactam (Sod 3.375 gm/ Dextrose) 50 mls @ 100 mls/hr IVPB Q8H-IV [facility] Last Admin: 07/14/17 09:32 Dose: 100 mls/hr Vancomycin HCl 1,000 mg/ (Dextrose) 250 mls @ 166.667 mls/hr IVPB BID [facility] PRN Reason: Protocol Last Admin: 07/14/17 09:32 Dose: 166.667 mls/hr Insulin Aspart (Novolog Vial Sliding Scale -) 1 vial SQ ACHS [facility] PRN Reason: Protocol Last Admin: 07/14/17 12:08 Dose: 9 units Insulin Detemir (Levemir Vial) 27 units SQ AM [facility] Last Admin: 07/14/17 06:36 Dose: Not Given Insulin Detemir (Levemir Vial) 15 units SQ HS [facility] Last Admin: 07/13/17 21:36 Dose: 15 units Lisinopril (Prinivil) 10 mg PO DAILY [facility] Last Admin: 07/14/17 09:32 Dose: 10 mg Ondansetron HCl (Zofran Injection) 4 mg IVPUSH Q6H PRN PRN Reason: NAUSEA AND/OR VOMITING Oxycodone HCl (Roxicodone -) 10 mg PO Q6H PRN PRN Reason: PAIN Last Admin: 07/14/17 09:10 Dose: 10 mg Pregabalin (Lyrica -) 25 mg PO TID [facility] Last Admin: 07/14/17 14:45 Dose: 25 mg - Objective Vital Signs: Vital Signs Temperature 97.8 F 07/14/17 14:00 Pulse Rate 85 07/14/17 14:00 Respiratory Rate 18 07/14/17 14:00 Blood Pressure 137/99 07/14/17 14:00 O2 Sat by Pulse Oximetry (%) 99 07/13/17 22:00 Constitutional: Yes: Calm Eyes: Yes: Conjunctiva Clear HENT: Yes: Atraumatic Cardiovascular: Yes: S1, S2 Respiratory: Yes: CTA Bilaterally Gastrointestinal: Yes: Normal Bowel Sounds, Soft Genitourinary: Yes: WNL Musculoskeletal: Yes: WNL Edema: No Wound/Incision: Yes: Dressing Dry and Intact Neurological: Yes: Oriented Psychiatric: Yes: Oriented Labs: CBC, BMP 07/13/17 06:42 07/13/17 06:42 INR, PTT INR 1.04 (0.82-1.09) 07/10/17 13:18 Problem List - Problems (1) Hyperkalemia Code(s): E87.5 - HYPERKALEMIA (2) Dehydration Code(s): E86.0 - DEHYDRATION (3) Type 2 diabetes mellitus with foot ulcer Code(s): E11.621 - TYPE 2 DIABETES MELLITUS WITH FOOT ULCER; L97.509 - NON- PRESSURE CHRONIC ULCER OTH PRT UNSP FOOT W UNSP SEVERITY Qualifiers: Diabetes mellitus buttermaker insulin use: with buttermaker use Qualified Code( s): E11.621 - Type 2 diabetes mellitus with foot ulcer; L97.509 - Non-pressure chronic ulcer of other part of unspecified foot with unspecified severity; L97.509 - Non-pressure chronic ulcer of other part of unspecified foot with unspecified severity; L97.509 - Non-pressure chronic ulcer of other part of unspecified foot with unspecified severity; L97.509 - Non-pressure chronic ulcer of other part of unspecified foot with unspecified severity; Z79.4 - jail (current) use of insulin; Z79.4 - terminal carman (current) use of insulin; Z79.4 - terminal carman (current) use of insulin; Z79.4 - jail (current) use of insulin Assessment/Plan Current Medications Generic Name Dose Route Start Last Admin Trade Name Freq PRN Reason Stop Dose Admin Acetaminophen 650 mg 07/12/17 09:47 07/13/17 23:15 Tylenol - PO 650 mg Q6H PRN Administration FEVER OR PAIN Acetaminophen 650 mg 07/12/17 10:12 07/14/17 09:10 Tylenol - PO 650 mg Q6H PRN Administration PAIN Citalopram Hydrobromide 10 mg 07/12/17 10:00 07/14/17 09:32 Celexa - PO 10 mg DAILY [facility] Administration Heparin Sodium (Porcine) 5,000 unit 07/12/17 10:00 07/14/17 09:32 Heparin - SQ 5,000 unit BID [facility] Administration Piperacillin Sod/Tazobactam 50 mls @ 100 mls/hr 07/12/17 10:00 07/14/17 09:32 Sod 3.375 gm/ Dextrose IVPB 100 mls/hr Q8H-IV [facility] Administration Vancomycin HCl 1,000 mg/ 250 mls @ 166.667 mls/hr 07/12/17 10:00 07/14/17 09: 32 Dextrose IVPB 166.667 mls/hr BID [facility] Administration Protocol Insulin Aspart 1 vial 07/12/17 22:00 07/14/17 12:08 Novolog Vial Sliding Scale - SQ 9 units ACHS [facility] Administration Protocol Insulin Detemir 27 units 07/13/17 07:00 07/14/17 06:36 Levemir Vial SQ Not Given AM [facility] Insulin Detemir 15 units 07/12/17 22:00 07/13/17 21:36 Levemir Vial SQ 15 units HS [facility] Administration Lisinopril 10 mg 07/12/17 10:00 07/14/17 09:32 Prinivil PO 10 mg DAILY [facility] Administration Ondansetron HCl 4 mg 07/12/17 09:47 Zofran Injection IVPUSH Q6H PRN NAUSEA AND/OR VOMITING Oxycodone HCl 10 mg 07/12/17 10:12 07/14/17 09:10 Roxicodone - PO 10 mg Q6H PRN Administration PAIN Pregabalin 25 mg 07/12/17 14:00 07/14/17 14:45 Lyrica - PO 25 mg TID [facility] Administration Impression 1. hyperkalemia 2. dehydration 3. DM 4. DFU 5. HTN Plan - cont with sami - monitor renal function - repeat ua - will need better glucose control - will follow Dr Bliss
[2017-07-14] MEDS ORDERED: PICC LINE 8 ML FLUSH PROTOCOL IVPUSH PRN (16:21)
--- NOTE | 2017-07-14 16:22 | PN ---
Progress Note (short form) - Note Progress Note: s/p incision and drainage- wound exteded to bone- pus drained less foot pain edema improved Vital Signs Period Temp Pulse Resp BP Sys/[place] Pulse Ox Last 24 Hr 97.8 F-98.4 F 77-85 16-20 122-141/67-99 99 cor-rrr llungs clear abd soft,nt ext dressing intact, minimal edema, nontender to palpation CBC, BMP 07/13/17 06:42 07/13/17 06:42 Laboratory Tests 07/10/17 07/10/17 19:45 19:45 ESR 72 H C-Reactive Protein 10.5 H Microbiology 07/12/17 10:18 Wound Gram Stain - Final 07/12/17 10:18 Wound Wound Culture - Preliminary Strep Agalactiae Group B Streptococcus Viridans 07/10/17 13:18 Blood - Peripheral Venous Blood Culture - Preliminary NO GROWTH OBTAINED AFTER 96 HOURS, INCUBATION TO CONTINUE FOR 1 DAYS. 07/10/17 13:18 Blood - Peripheral Venous Blood Culture - Preliminary NO GROWTH OBTAINED AFTER 96 HOURS, INCUBATION TO CONTINUE FOR 1 DAYS. 07/10/17 13:05 Foot - Right Gram Stain - Final 07/10/17 13:05 Foot - Right Wound Culture - Final Strep Agalactiae Group B Staphylococcus Aureus Streptococcus Viridans 07/12/17 10:18 Wound-Other Gram Stain - Final 07/12/17 10:18 Wound-Other Wound Culture - Final 07/10/17 13:52 Urine - Urine Clean Catch Urine Culture - Final Staphylococcus Aureus a/p diabetic foot infection osteomyelitis s/p incision and drainage of foot abscess plan ceftriaxone for 6 weeks via picc line will need weekly cbc, cmp, crp while on treatment can followup in our office with Dr Freire/Trell Problem List - Problems (1) Diabetic foot infection Code(s): E11.69 - TYPE 2 DIABETES MELLITUS WITH OTHER SPECIFIED COMPLICATION; L08.9 - LOCAL INFECTION OF THE SKIN AND SUBCUTANEOUS TISSUE, UNSP
--- NOTE | 2017-07-14 16:23 | DS ---
Physical Examination Vital Signs: Vital Signs Temperature 97.8 F 07/14/17 14:00 Pulse Rate 85 07/14/17 14:00 Respiratory Rate 18 07/14/17 14:00 Blood Pressure 137/99 07/14/17 14:00 O2 Sat by Pulse Oximetry (%) 99 07/13/17 22:00 Constitutional: Yes: No Distress Eyes: Yes: WNL HENT: Yes: WNL Neck: Yes: WNL Cardiovascular: Yes: WNL Respiratory: Yes: WNL Gastrointestinal: Yes: WNL Musculoskeletal: Yes: WNL Extremities: Yes: WNL Edema: No Peripheral Pulses WNL: Yes Integumentary: Yes: Pressure Ulcer Wound/Incision: Yes: Dressing Dry and Intact Neurological: Yes: WNL ...Motor Strength: LLE, RLE Psychiatric: Yes: WNL Labs: CBC, BMP 07/13/17 06:42 07/13/17 06:42 Discharge Summary Reason For Visit: DIABETIC FOOT ULCER Current Active Problems Dehydration (Acute) Diabetic foot infection (Acute) Diabetic foot ulcer (Acute) Hyperkalemia (Acute) Type 2 diabetes mellitus with foot ulcer (Acute) Procedures: Principal: WOUND DEBRIDEMENT FOOT Hospital Course: ADMITTED FOR WORSENING WOUND INFECTION, TREATED WITH IV ABX, WOUND CARE SURGERY WITH PODIATRY, PICC LINE PLACED 42 DAYS OF IV CEFTRAIXONE AND WOUND CARE Condition: Fair - Instructions Diet, Activity, Other Instructions: ADA STRICT MONITOR BLOOD GLUCOSE 3 X [address]CRINE CONSULT DR ELDON LOPEZ IN 1 WEEK [facility] Referrals: Angel Lopez MD [Primary Care Provider] - Disposition: VNS/HOME HEALTH CARE - Home Medications Comprehensive Discharge Medication List: Ambulatory Orders Lisinopril [Prinivil] 20 mg PO DAILY 12/17/16 Pregabalin [Lyrica -] 25 mg PO TID 03/18/17 Citalopram Hydrobromide [Celexa -] 20 mg PO DAILY 07/10/17 Dapagliflozin Propanediol [Farxiga] 20 mg PO DAILY 07/10/17 Insulin (Levemir) [Levemir Flexpen -] 20 units SQ HS 07/10/17 Insulin Lispro [Humalog] 10 unit SQ ACBK 07/10/17 Insulin Lispro [Humalog] 10 unit SQ ACLD 07/10/17
[2017-07-14] MEDS ORDERED: cefTRIAXone 2 GM/100 ML BAG (PRE-DOCKED) IVPB SCH (16:30)
[2017-07-14] MEDS: CEFTRIAXONE 2 GM in DEXTROSE 5%-WATER - 100 ML IVPB SCH (19:40)
[2017-07-15 06:26] VITALS: TEMP 98.2
[2017-07-15] MEDS: INSULIN SLIDING SCALE (NOVOLOG) 1 VIAL SQ SCH ×2 (06:28→12:30)
[2017-07-15] MEDS: PREGABALIN 25 MG CAPSULE PO SCH ×2 (06:30→15:03)
[2017-07-15] MEDS ORDERED: INSULIN DETEMIR 100 UNITS/ML MDV SQ SCH (07:00)
[2017-07-15] MEDS ORDERED: PT OWN MED DRAWER 7, Y5N ONE (08:59)
[2017-07-15] MEDS: LISINOPRIL 10 MG TABLET (FP) PO SCH (09:07)
[2017-07-15] MEDS: CITALOPRAM HYDROBROMIDE 10 MG TABLET (FP) PO SCH (09:07)
[2017-07-15] MEDS: HEPARIN NA (PORCINE) 5,000 UNITS/ML 1ML VIAL SQ SCH ×2 (09:07→09:09)
[2017-07-15 11:25] VITALS: BP 130/53; PULSE 84
[2017-07-15] MEDS: CEFTRIAXONE 2 GM in DEXTROSE 5%-WATER - 100 ML IVPB SCH (13:00)
[2017-07-15] MEDS ORDERED: oxyCODONE HCL 5 MG TABLET ONE (14:12)
[2017-07-15] MEDS: ACETAMINOPHEN 325 MG TABLET (FP) PO PRN (14:14)
[2017-07-15] MEDS: oxyCODONE HCL 5 MG TABLET PO PRN (14:14)
--- NOTE | 2017-07-15 16:24 | PATH ---
Surgical Pathology Report Patient Name: MARGOT NG Med. Rec. #: [id number] /Age/Gender: 1975 (Age: 42) / F Account: [id number] Location: [address] [place] [address]/[facility] Taken: 07/12/2017 Received: 07/14/2017 Reported: 07/15/2017 Physicians: Mehdi Guidry DPM Specimen(s) Received RIGHT FOOT SOFT TISSUE Clinical History Diabetic foot ulcer Final Diagnosis SOFT TISSUE, RIGHT FOOT, EXCISION: PORTION OF SOFT TISSUE WITH ACUTE AND CHRONIC INFLAMMATION, ULCERATION AND GRANULATION TISSUE. SKIN WITH HYPERKERATOSIS. Electronically Signed Dasia Paniagua M.D. Gross Description Received in formalin labeled "right foot soft tissue," is a 3.3 x 2.2 x 0.7 cm aggregate of cartwright, ulcerated portions of skin and soft tissue. Goal Umpire sections are submitted in one cassette. 07/14/201707/14/2017
== END 2017-07-15 15:28 | disposition home health service (06) | DRG 26 ==
LOC: JER 11:46 → JERBED 15:24 → J5S 16:41
PROVIDERS: ADMIT Family Medicine; ATTEND Family Medicine
PROC: 0Y9M0ZX Drainage of Right Foot, Open Approach, Diagnostic (ICD-10-PCS; 2017-07-12)
PROC: 0KBV0ZZ Excision of Right Foot Muscle, Open Approach (ICD-10-PCS; principal; 2017-07-12 07:53)
PROC: 02HV33Z Insertion of Infusion Device into Superior Vena Cava, Percutaneous Approach (ICD-10-PCS; 2017-07-15)
DX: E11.610 Type 2 diabetes mellitus with diabetic neuropathic arthropathy (principal); E11.621 Type 2 diabetes mellitus with foot ulcer; E11.21 Type 2 diabetes mellitus with diabetic nephropathy; L97.518 Non-pressure chronic ulcer of other part of right foot with other specified severity; E86.0 Dehydration; E87.5 Hyperkalemia; Z79.4 Long term (current) use of insulin; L02.611 Cutaneous abscess of right foot; I10 Essential (primary) hypertension; K21.9 Gastro-esophageal reflux disease without esophagitis; F41.8 Other specified anxiety disorders; F20.9 Schizophrenia, unspecified
CPT/HCPCS: 36415; 36569; 73630-TC-RT; 73721-RT-TC; 77001-TC; 80053; 80061; 81003; 83036; 83721; 84703; 85025; 85027; 85610; 85651; 86140; 87040; 87070; 87077; 87086; 87186; 87205; 88304-TC; 90688; 90732; 93005; 93010; 94760; 99283-25; C1751; G0008; G0009; G0480; J1644

== ENCOUNTER 2017-10-22 16:00 | Inpatient (IN) | payer OTHER ==
--- NOTE | 2017-10-22 16:22 | PDOC ---
Rapid Medical Evaluation Time Seen by Provider: 10/22/17 16:19 Medical Evaluation: Allergies Allergy/AdvReac Type Severity Reaction Status Date / Time No Known Allergies Allergy Verified 10/21/17 13:23 10/22/17 16:19 I have performed a brief in-person evaluation of this patient. The patient presents with a chief complaint of: Possible R foot cellulitis. H/o chronic ulcer to plantar aspect of R foot, IDDM, osteo, HTN. Sent from wound care for admission. Pain to foot. No f/c PMD: Dr Lopez Vasc: Dr Smith/Dr Yan Pertinent physical exam findings:Hypertensive, cam boot w/ dressing intact to RLE, will defer exam to ED provider I have ordered the following:labs/XR The patient will proceed to the ED for further evaluation. 10/22/17 16:23
[2017-10-22 16:23] VITALS: BMI 35.4
[2017-10-22 16:46] LABS: BASO % 1.6 % (0-2.0); EOS % 0.3 % (0-4.5); HEMATOCRIT 33.9 % (32.4-45.2); HEMOGLOBIN 10.5 GM/dL (10.7-15.3); LYMPH % 30.5 % (8-40); MEAN CELL VOLUME 63.5 fl (80-96); MEAN PLT VOLUME 8.3 fl (7.5-11.1); MONO % 5.4 % (3.8-10.2); NEUT % 62.2 % (42.8-82.8); PLATELET COUNT 412 K/MM3 (134-434); RBC 5.34 M/mm3 (3.60-5.2); RDW 18.8 % (11.6-15.6); WHITE BLOOD COUNT 9.1 K/mm3 (4.0-10.0)
[2017-10-22 17:03] LABS: MCH 19.7 pg (25.7-33.7)
[2017-10-22 17:04] LABS: ADD RBC MORPHOLOGY YES
[2017-10-22 17:25] LABS: ALBUMIN 3.3 g/dl (3.4-5.0); ANION GAP 12 (8-16); BILIRUBIN,TOTAL 0.1 mg/dL (0.2-1.0); BLOOD UREA NITROGEN 15 mg/dL (7-18); CALCIUM 9.5 mg/dL (8.5-10.1); CHLORIDE 99 mmol/L (98-107); CO2 26 mmol/L (21-32); CREATININE 0.8 mg/dL (0.55-1.02); GLUCOSE,RANDOM 300 mg/dL (74-106); POTASSIUM 4.3 mmol/L (3.5-5.1); SGOT/AST 18 U/L (15-37); SGPT/ALT 19 U/L (12-78); SODIUM 137 mmol/L (136-145); TOT PROT 7.5 g/dl (6.4-8.2)
[2017-10-22 17:26] LABS: ALK PHOS 161 U/L (45-117)
[2017-10-22 18:09] LABS: ANISOCYTOSIS 1+; PLATELET ESTIMATE ADEQUATE; TARGET CELLS 1+
--- NOTE | 2017-10-22 22:25 | PDOC ---
History of Present Illness - General Chief Complaint: Wound Infection Stated Complaint: FOOT WOUND Time Seen by Provider: 10/22/17 16:19 - History of Present Illness Initial Comments: 10/22/17 22:44 The patient is a 42 year old female with a history of IDDM, HTN, osteomylities who presents for admission from wound care clinic for a right foot wound. The patient reports a 2 month history of a ulcer to the sole of her right foot for which she has been followed in wound care clinic. She endorses worsening pain in the right foot, and the wound care clinic sent her for admission for concerns of worsening infection. The patient denies fevers, chills, SOB, chest pain, nausea, vomiting, abdominal pain, or changes with urination or bowel movements. Past History - Past Medical History Allergies/Adverse Reactions: Allergies Allergy/AdvReac Type Severity Reaction Status Date / Time No Known Allergies Allergy Verified 10/22/17 16:23 Home Medications: Ambulatory Orders Insulin Lispro [Humalog Kwikpen U-100] 10 unit SQ ACBK 07/10/17 Acetaminophen [Tylenol .Regular Strength -] 650 mg PO Q6H PRN tablet 07/15/17 Citalopram Hydrobromide [Celexa -] 20 mg PO DAILY #0 tab 07/15/17 Dapagliflozin Propanediol [Farxiga] 20 mg PO DAILY #0 tab 07/15/17 Insulin (Levemir) [Levemir Flexpen -] 32 units SQ HS #0 syr 07/15/17 Lisinopril [Prinivil] 10 mg PO DAILY tablet 07/15/17 Pregabalin [Lyrica -] 25 mg PO TID #0 tab 07/15/17 COPD: No Diabetes: Yes HTN: Yes - Immunization History Immunization Up to Date: Yes - Suicide/Smoking/Psychosocial Hx Smoking History: Never smoked Have you smoked in the past 12 months: No Hx Alcohol Use: Yes (OCCASIONALLY) Drug/Substance Use Hx: No Substance Use Type: None Hx Substance Use Treatment: No Review of Systems - Review of Systems Comments:: 10/22/17 22:47 Constitutional: No fevers, chills, fatigue, malaise HEENT: No Rhinorrhea, nasal congestion, visual changes Cardiovascular: No chest pain, syncope, palpitations, lightheadedness Respiratory: No Cough, SOB, Hemoptysis, Gastrointestinal: No Abdominal pain, Nausea, Vomiting, Constipation, Diarrhea, Melena Genitourinary: No Dysuria, Frequency, Urgency, Hesitancy, Hematuria, Flank pain Musculoskeletal: Right foot pain and swelling. No Myalgia, arthralgia Skin: No rashes, itching, bruising, pallor Neurologic: No Headache, Dizziness, Numbness, Weakness, or Tingling Psychiatric: No Hallucinations. No SI or HI *Physical Exam - Vital Signs Last Vital Signs Temp Pulse Resp BP Pulse Ox 99.3 F 99 H 20 173/66 99 10/22/17 16:19 10/22/17 16:19 10/22/17 16:19 10/22/17 16:19 10/22/17 16:19 - Physical Exam Comments: 10/22/17 22:48 General Appearance: Nourished. No Apparent Distress HEENT: No Pharyngeal Erythema, Tonsillar Exudate, Tonsillar Erythema Neck: No Cervical Lymphadenopathy Respiratory/Chest: Lungs Clear, Normal Breath Sounds. No Crackles, Rales, Rhonchi, Wheezing Cardiovascular: Regular Rhythm, Regular Rate. No Murmur, Gallops, Rubs Gastrointestinal/Abdominal: Normal Bowel Sounds, Soft. No Guarding, Rebound, Tenderness Musculoskeletal: No CVA Tenderness Extremity: Ulcer to the right sole draining purulent fluid with surrounding edema. Normal Capillary Refill Integumentary: Normal Color, Dry, Warm Neurologic: Fully Oriented, Alert, Normal Mood/Affect, Normal Response, Heart Score/ECG Review #1 ECG reviewed & interpreted by me at: 01:09 General ECG Interpretation: Sinus Rhythm, Normal Rate, Normal Intervals, No acute ischemic changes ED Treatment Course - LABORATORY CBC & Chemistry Diagram: 10/22/17 16:40 10/22/17 16:40 - ADDITIONAL ORDERS Additional order review: Laboratory Results 10/22/17 16:40 Sodium 137 Potassium 4.3 Chloride 99 Carbon Dioxide 26 Anion Gap 12 BUN 15 Creatinine 0.8 Creat Clearance w eGFR > 60 Random Glucose 300 H Calcium 9.5 Total Bilirubin 0.1 L D AST 18 ALT 19 Alkaline Phosphatase 161 H Total Protein 7.5 Albumin 3.3 L 10/22/17 16:40 RBC 5.34 H MCV 63.5 L MCHC 31.0 L RDW 18.8 H D MPV 8.3 D Neutrophils % 62.2 Lymphocytes % 30.5 Monocytes % 5.4 Eosinophils % 0.3 Basophils % 1.6 Medical Decision Making - Medical Decision Making 10/22/17 22:49 The patient is a 42 year old female with a history of IDDM, HTN, osteomylities who presents for admission from wound care clinic for a right foot wound. Differential includes but is not limited to: Cellulities, osteomylitis, wound infection, metabolic derangement. Given the patient's physical exam, it appears that she is suffering from a worsening wound infection. CBC, cmp performed in triage were unremarkable. We will obtain plain films of the patient's foot to evaluate for osteo and obtain blood cultures and wound culture here in the ED. We will treat the patient with vancomycin and zosyn for antibiotic coverage. She will require admission for further management of her symptoms. 10/23/17 01:09 We discussed the case with the hospitalist team who accepted the patient for admission. 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
--- NOTE | 2017-10-22 22:28 | PDOC ---
Attending Attestation - HPI HPI: 10/22/17 22:29 The patient is a 42 year old female with significant past medical history of IDDM, HTN, Charcot's foot, R foot ulcer, and osteomyelitis, who presents to the ED from wound care for admission and treatment for a diabetic foot ulcer to right sole of foot. The patient denies chest pain, shortness of breath, headache and dizziness. The patient denies fever, chills, nausea, vomit, diarrhea and constipation. The patient denies dysuria, frequency, urgency and hematuria. Allergies: NKDA PCP - Dr. Lopez - Medical Decision Making 10/22/17 22:29 Documentation prepared by Any Salvador, acting as hospitalist medical director for Jose Guillermo DO. <Any Salvador - Last Filed: 10/22/17 22:29> - Resident Resident Name: Maury Razo - ED Attending Attestation I have performed the following: I have examined & evaluated the patient, The case was reviewed & discussed with the resident, I agree w/resident's findings & plan, Exceptions are as noted - Physicial Exam PE: 10/23/17 00:34 *Physical Exam General Appearance: Yes: Appropriately Dressed. No: Apparent Distress, Intoxicated HEENT: positive: EOMI, JOHNNY, Normal ENT Inspection, Normal Voice, TMs Normal, Pharynx Normal. negative: Pale Conjunctivae, Photophobia, Scleral Icterus (R), Scleral Icterus (L) Neck: positive: Trachea midline, Normal Thyroid, Supple. negative: Tender, Rigid, Carotid bruit, Stridor, Lymphadenopathy (R), Lymphadenopathy (L), Thyromegaly Respiratory/Chest: positive: Lungs Clear, Normal Breath Sounds. negative: Chest Tender, Respiratory Distress, Accessory Muscle Use, Labored Respiration, RES, Crackles, Rales, Rhonchi, Stridor, Wheezing, Dullness Cardiovascular: positive: Regular Rhythm, Regular Rate, S1, S2. negative: Edema , JVD, Murmur, Bradycardia, Tachycardia Vascular Pulses: Dorsalis-Pedis (R): 2+, Doralis-Pedis (L): 2+ Gastrointestinal/Abdominal: positive: Normal Bowel Sounds, Flat, Soft. negative : Tender, Organomegaly, Pulsatile Mass, Increased Bowel Sounds, Decreased BS, Distended, Guarding, Rebound, Hernia, Hepatomegaly, Spleenomegaly Lymphatic: negative: Adenopathy, Tenderness Musculoskeletal: positive: ulcer to right heel with drainage and surrounding erythema negative: CVA Tenderness, Decreased Range of Motion Extremity: positive: Normal Capillary Refill, Normal Inspection, Normal Range of Motion, Pelvis Stable. negative: Tender, Pedal Edema, Swelling, Erythema Integumentary: positive: Normal Color, Dry, Warm. 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 negative: EOM Palsy, Facial Droop, Sensory Deficit <Jose Guillermo - Last Filed: 10/23/17 00:36>
[2017-10-22] MEDS ORDERED: PIPERACILLIN/TAZOB 3.375 GM 50 ML IVPB ONE (22:29)
[2017-10-22] MEDS ORDERED: VANCOMYCIN 1,250 MG in DEXTROSE 5%-WATER - 250 ML IVPB ONE (22:29)
[2017-10-22 22:32] LABS: URINE APPEARANCE CLEAR; URINE BILIRUBIN NEGATIVE (NEGATIVE); URINE BLOOD NEGATIVE (NEGATIVE); URINE COLOR STRAW; URINE GLUCOSE (UA) 3+ (NEGATIVE); URINE KETONE NEGATIVE (NEGATIVE); URINE LEUK ESTERASE NEGATIVE (NEGATIVE); URINE NITRITE NEGATIVE (NEGATIVE); URINE PROTEIN NEGATIVE (NEGATIVE); URINE UROBILINOGEN NEGATIVE mg/dL (0.2-1.0)
[2017-10-22] MEDS ORDERED: PIPERACILLIN/TAZOB 3.375 GM 3.375 GM/50 ML BAG IVPB ONE (22:56)
[2017-10-23] MEDS ORDERED: ACETAMINOPHEN 325 MG TABLET (FP) PO PRN (01:20)
--- NOTE | 2017-10-23 01:20 | HP ---
PCP: Angel Lopez CHIEF COMPLAINT: Infected right foot wound HISTORY OF PRESENT ILLNESS: This is a 42 year old woman who comes to the ED for treatment of an infected non-healing plantar ulcer of her right foot. She has had the ulcer since around June 2017. She has been receiving treatment in the wound clinic and hyperbarics. She was admitted 07/10/17-07/14/17 for osteomyelitis and was treated with Rocephin x 6 weeks. She was last seen in the wound clinic yesterday by Dr. Le. Admission was advised but she refused. She reports pain in the foot and foul-smelling drainage from the ulcer. She denies fever, chills. PAST MEDICAL HISTORY Type 2 diabetes mellitus Sickle cell trait HTN Right foot osteomyelitis GERD Depression PAST SURGICAL HISTORY Allergies No Known Allergies Allergy (Verified 10/22/17 16:23) Home Medications Medication Instructions Recorded Insulin Lispro [Humalog Kwikpen 10 unit SQ ACBK 07/10/17 U-100] Acetaminophen [Tylenol .Regular 650 mg PO Q6H PRN tablet 07/15/17 Strength -] Citalopram Hydrobromide [Celexa -] 20 mg PO DAILY #0 tab 07/15/17 Dapagliflozin Propanediol [Farxiga] 20 mg PO DAILY #0 tab 07/15/17 Insulin (Levemir) [Levemir Flexpen 32 units SQ HS #0 syr 07/15/17 -] Lisinopril [Prinivil] 10 mg PO DAILY tablet 07/15/17 Pregabalin [Lyrica -] 25 mg PO TID #0 tab 07/15/17 Social History: Smoking: Never smoked Alcohol: Occasional Drugs: Denies Recent Travel: No Family History: Diabetes mellitus REVIEW OF SYSTEMS CONSTITUTIONAL: Absent: fever, chills, diaphoresis, generalized weakness, malaise, loss of appetite, weight change HEENT: Absent: rhinorrhea, nasal congestion, throat pain, throat swelling, difficulty swallowing, mouth swelling, ear pain, eye pain, visual changes CARDIOVASCULAR: Present: peripheral edema. Absent: chest pain, syncope, palpitations, lightheadedness RESPIRATORY: Absent: cough, shortness of breath, dyspnea with exertion, orthopnea, wheezing, stridor, hemoptysis GASTROINTESTINAL: Absent: abdominal pain, abdominal distension, nausea, vomiting , diarrhea, constipation, melena, hematochezia GENITOURINARY: Absent: dysuria, frequency, urgency, hesitancy, hematuria, flank pain MUSCULOSKELETAL: Present: right foot swelling. Absent: myalgia, arthralgia, joint swelling, back pain, neck pain SKIN: Absent: rash, itching, pallor HEMATOLOGIC/IMMUNOLOGIC: Absent: easy bleeding, easy bruising, lymphadenopathy, frequent infections ENDOCRINE: Absent: unexplained weight gain, unexplained weight loss, heat intolerance, cold intolerance NEUROLOGIC: Absent: headache, focal weakness, paresthesias, dizziness, unsteady gait, seizure, mental status changes, bladder or bowel incontinence PSYCHIATRIC: Absent: anxiety, depression, suicidal or homicidal ideation, hallucinations. PHYSICAL EXAMINATION Vital Signs - 24 hr 10/22/17 16:19 Temperature 99.3 F Pulse Rate 99 H Respiratory 20 Rate Blood Pressure 173/66 O2 Sat by Pulse 99 Oximetry (%) GENERAL: Awake, alert, and fully oriented, in no acute distress. HEAD: Normal with no signs of trauma. EYES: Pupils equal, round and reactive to light, extraocular movements intact, sclerae anicteric, conjunctivae clear. EARS, NOSE, THROAT: Ears normal, nares patent, oropharynx clear without exudates. Moist mucous membranes. NECK: Normal range of motion, supple without lymphadenopathy, JVD, or masses. LUNGS: Breath sounds equal, clear to auscultation bilaterally. No wheezes, and no crackles. No accessory muscle use. HEART: Regular rate and rhythm, normal S1 and S2 without murmur, rub or gallop. ABDOMEN: Obese, soft, nontender, not distended, normoactive bowel sounds, no guarding, no rebound, no masses. No hepatomegaly or splenomegaly. MUSCULOSKELETAL: Normal range of motion at all joints. No bony deformities or tenderness. No CVA tenderness. UPPER EXTREMITIES: 2+ pulses, warm, well-perfused. No cyanosis. No clubbing. No peripheral edema. LOWER EXTREMITIES: 2+ pulses, warm, well-perfused. No calf tenderness. 1+ edema of right foot. Ulcer of mid plantar surface of right foot with foul-smelling purulent drainage. NEUROLOGICAL: Cranial nerves II-XII intact. Normal speech. Gait not observed. PSYCHIATRIC: Cooperative. Good eye contact. Appropriate mood and affect. SKIN: Warm, dry, normal turgor, no rashes or lesions noted, normal capillary refill. Laboratory Results - last 24 hr 10/22/17 10/22/17 10/22/17 16:40 16:40 22:20 WBC 9.1 RBC 5.34 H Hgb 10.5 L Hct 33.9 MCV 63.5 L MCH 19.7 L MCHC 31.0 L RDW 18.8 H D Plt Count 412 MPV 8.3 D Neutrophils % 62.2 Lymphocytes % 30.5 Monocytes % 5.4 Eosinophils % 0.3 Basophils % 1.6 Hypochromia 1+ Platelet Estimate Adequate Platelet Comment Poikilocytosis 1+ Anisocytosis 1+ Microcytosis 2+ Target Cells 1+ Sodium 137 Potassium 4.3 Chloride 99 Carbon Dioxide 26 Anion Gap 12 BUN 15 Creatinine 0.8 Creat Clearance w eGFR > 60 Random Glucose 300 H Calcium 9.5 Total Bilirubin 0.1 L D AST 18 ALT 19 Alkaline Phosphatase 161 H Total Protein 7.5 Albumin 3.3 L Urine Color Straw Urine Appearance Clear Urine pH 6.0 Ur Specific [place] 1.020 Urine Protein Negative Urine Glucose (UA) 3+ H Urine Ketones Negative Urine Blood Negative Urine Nitrite Negative Urine Bilirubin Negative Urine Urobilinogen Negative Ur Leukocyte Esterase Negative ASSESSMENT/PLAN: This is a 42 year old woman who presented to the ED for treatment of an infected non-healing plantar ulcer of her right foot. 1. Infected diabetic ulcer of right foot - Zosyn, Vancomycin given in ED - ID, podiatry, vascular surgery consults 2. Uncontrolled type 2 diabetes mellitus with peripheral neuropathy - Continue Levemir, Lyrica - Hold Farxiga - Fingersticks with Novolog sliding scale - Endocrine consult 3. Hypertension - Continue Lisinopril 4. Depression - Continue Celexa 5. Obesity with BMI 35.4 Visit type - Emergency Visit Emergency Visit: Yes ED Registration Date: 10/22/17 Care time: The patient presented to the Emergency Department on the above date and was hospitalized for further evaluation of their emergent condition. - New Patient This patient is new to me today: Yes Date on this admission: 10/22/17 - Critical Care Critical Care patient: No Hospitalist Screening - Colonoscopy Questionnaire Colonoscopy Questionnaire: Colonoscopy Questionnaire - Patient: 50 - 75 years old and never had a screening colonoscopy: No History of colon or rectal polyps, or CA: No History of IBD, Crohn's disease or UC: No History of abdominal radiation therapy as a child: No - Relative: 1 with colon or rectal CA, or polyps at age 60 or younger: No Colon or rectal CA diagnosed at age 45 or younger: No Multiple relatives with colon or rectal CA: No - Outcome: Screening Result: Negative Screen
[2017-10-23] MEDS ORDERED: ONDANSETRON 4 MG/2 ML VIAL IVPUSH PRN (01:24)
[2017-10-23] MEDS: PREGABALIN 25 MG CAPSULE PO SCH ×3 (06:41→21:16)
[2017-10-23] MEDS: INSULIN SLIDING SCALE (NOVOLOG) 1 VIAL SQ SCH ×4 (06:41→21:17)
[2017-10-23] MEDS: HEPARIN NA (PORCINE) 5,000 UNITS/ML 1ML VIAL SQ SCH ×3 (06:41→21:16)
[2017-10-23] MEDS: CITALOPRAM HYDROBROMIDE 20 MG TABLET (FP) PO SCH (10:03)
[2017-10-23] MEDS: LISINOPRIL 10 MG TABLET (FP) PO SCH (10:03)
--- NOTE | 2017-10-23 10:15 | PN ---
Progress Note, Physician Chief Complaint: Diabetic Right foot ulcer History of Present Illness: right foot plantar wound, CHRISTIANO, draining minimally seen by ID IV abx - Current Medication List Current Medications: Active Medications Acetaminophen (Tylenol -) 650 mg PO Q4H PRN PRN Reason: PAIN OR FEVER Citalopram Hydrobromide (Celexa -) 20 mg PO DAILY [facility] Last Admin: 10/23/17 10:03 Dose: 20 mg Ergocalciferol (Drisdol -) 50,000 unit PO Q7D@1000 NILO Heparin Sodium (Porcine) (Heparin -) 5,000 unit SQ TID [facility] Last Admin: 10/23/17 06:41 Dose: 5,000 unit Iron Sucrose 300 mg/ Sodium (Chloride) 250 mls @ 250 mls/hr IVPB ONCE ONE Stop: 10/23/17 11:11 Insulin Aspart (Novolog Vial Sliding Scale -) 1 vial SQ ACHS [facility] PRN Reason: Protocol Last Admin: 10/23/17 06:41 Dose: 6 units Insulin Detemir (Levemir Vial) 32 units SQ [facility] Lisinopril (Prinivil) 10 mg PO DAILY [facility] Last Admin: 10/23/17 10:03 Dose: 10 mg Ondansetron HCl (Zofran Injection) 4 mg IVPUSH Q6H PRN PRN Reason: NAUSEA Pregabalin (Lyrica -) 25 mg PO TID [facility] Last Admin: 10/23/17 06:41 Dose: 25 mg - Objective Vital Signs: Vital Signs Temperature 98.3 F 10/23/17 03:23 Pulse Rate 90 10/23/17 03:23 Respiratory Rate 19 10/23/17 03:23 Blood Pressure 141/76 10/23/17 03:23 O2 Sat by Pulse Oximetry (%) 100 10/23/17 03:23 Constitutional: Yes: Well Nourished, No Distress, Calm Cardiovascular: Yes: Regular Rate and Rhythm Respiratory: Yes: Regular Musculoskeletal: Yes: WNL Extremities: Yes: WNL Edema: No Peripheral Pulses WNL: No Peripheral Pulses: Left Doralis Pedis: 2+, Right Dorsalis Pedis: 1+ Integumentary: Yes: Other (Diabetic ulcer) Wound/Incision: Yes: Clean/Dry, Open to air Neurological: Yes: Alert, Oriented Psychiatric: Yes: Alert, Oriented Labs: CBC, BMP 10/22/17 16:40 10/22/17 16:40 Problem List - Problems (1) Osteomyelitis, chronic Assessment/Plan: IV abx seen by ID Bone scan pain management Podiatry consult Wound care Code(s): M86.60 - OTHER CHRONIC OSTEOMYELITIS, UNSPECIFIED SITE (2) Type 2 diabetes mellitus with foot ulcer Assessment/Plan: IV abx seen by ID Bone scan pain management Podiatry consult Wound care Code(s): E11.621 - TYPE 2 DIABETES MELLITUS WITH FOOT ULCER; L97.509 - NON- PRESSURE CHRONIC ULCER OTH PRT UNSP FOOT W UNSP SEVERITY Qualifiers: 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: unspecified 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 helper 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 status Qualified Code(s): E11.621 - Type 2 diabetes mellitus with foot ulcer; L97.509 - Non-pressure chronic ulcer of other part of unspecified foot with unspecified severity; L97.509 - Non-pressure chronic ulcer of other part of unspecified foot with unspecified severity; L97.509 - Non-pressure chronic ulcer of other part of unspecified foot with unspecified severity; L97.509 - Non -pressure chronic ulcer of other part of unspecified foot with unspecified severity (3) Uncontrolled type 2 diabetes mellitus Assessment/Plan: -Last A1c at 10.7 -endocrinology consult- doesn't have an director service outpatient -levemir and novolog -please administer abx in N/S Code(s): E11.65 - TYPE 2 DIABETES MELLITUS WITH HYPERGLYCEMIA (4) Anemia Assessment/Plan: -BRADY on labs done on 04/2017, would recheck -Also Anemia of chronic disease -would check stool OB, iron profile, ferritin, b12, tsh, FT4, and folate Code(s): D64.9 - ANEMIA, UNSPECIFIED Assessment/Plan see problem list
--- NOTE | 2017-10-23 10:44 | PN ---
Progress Note, Physician Chief Complaint: ID Full note dictated History of having been treated for Osteomyelitis - Current Medication List Current Medications: Active Medications Acetaminophen (Tylenol -) 650 mg PO Q4H PRN PRN Reason: PAIN OR FEVER Citalopram Hydrobromide (Celexa -) 20 mg PO DAILY [facility] Last Admin: 10/23/17 10:03 Dose: 20 mg Ergocalciferol (Drisdol -) 50,000 unit PO Q7D@1000 [facility] Heparin Sodium (Porcine) (Heparin -) 5,000 unit SQ TID [facility] Last Admin: 10/23/17 06:41 Dose: 5,000 unit Iron Sucrose 300 mg/ Sodium (Chloride) 250 mls @ 250 mls/hr IVPB ONCE ONE Stop: 10/23/17 11:11 Insulin Aspart (Novolog Vial Sliding Scale -) 1 vial SQ ACHS [facility] PRN Reason: Protocol Last Admin: 10/23/17 06:41 Dose: 6 units Insulin Detemir (Levemir Vial) 32 units SQ HS [facility] Lisinopril (Prinivil) 10 mg PO DAILY [facility] Last Admin: 10/23/17 10:03 Dose: 10 mg Ondansetron HCl (Zofran Injection) 4 mg IVPUSH Q6H PRN PRN Reason: NAUSEA Pregabalin (Lyrica -) 25 mg PO TID [facility] Last Admin: 10/23/17 06:41 Dose: 25 mg - Objective Vital Signs: Vital Signs Temperature 98.3 F 10/23/17 03:23 Pulse Rate 90 10/23/17 03:23 Respiratory Rate 19 10/23/17 03:23 Blood Pressure 141/76 10/23/17 03:23 O2 Sat by Pulse Oximetry (%) 100 10/23/17 03:23 Cardiovascular: Yes: S1, S2 Respiratory: Yes: WNL, Regular, CTA Bilaterally Gastrointestinal: Yes: Soft. No: Tenderness Extremities: Yes: Other (Right plantar ulcer swollen tender) Labs: CBC, BMP 10/22/17 16:40 10/22/17 16:40 Problem List - Problems (1) Osteomyelitis, chronic Code(s): M86.60 - OTHER CHRONIC OSTEOMYELITIS, UNSPECIFIED SITE (2) Diabetic foot ulcer Code(s): E11.621 - TYPE 2 DIABETES MELLITUS WITH FOOT ULCER; L97.509 - NON- PRESSURE CHRONIC ULCER OTH PRT UNSP FOOT W UNSP SEVERITY Qualifiers: Diabetic foot ulcer location: midfoot Diabetes mellitus type: type 2 Laterality: right Non-pressure ulcer stage: with muscle involvement without evidence of necrosis Qualified Code(s): E11.621 - Type 2 diabetes mellitus with foot ulcer; L97.415 - Non-pressure chronic ulcer of right heel and midfoot with muscle involvement without evidence of necrosis; L97.415 - Non-pressure chronic ulcer of right heel and midfoot with muscle involvement without evidence of necrosis; L97.415 - Non-pressure chronic ulcer of right heel and midfoot with muscle involvement without evidence of necrosis; L97.415 - Non- pressure chronic ulcer of right heel and midfoot with muscle involvement without evidence of necrosis Assessment/Plan Microbiology 07/12/17 10:18 Wound Gram Stain - Final 07/12/17 10:18 Wound Wound Culture - Final Strep Agalactiae Group B Streptococcus Viridans 07/10/17 13:52 Urine - Urine Clean Catch Urine Culture - Final Staphylococcus Aureus Laboratory Tests 10/22/17 10/22/17 16:40 16:40 WBC 9.1 Hgb 10.5 L Hct 33.9 Plt Count 412 BUN 15 Random Glucose 300 H AST 18 ALT 19 Alkaline Phosphatase 161 H Assessment Suspect recurrence of chronic osteomyelitis with plantar ulcer Plan Ceftriaxone and metronidazole CRP ESR Surgical consult debridment Bone scan ( Had MRI recently) Tani MALLORY
[2017-10-23] MEDS ORDERED: CEFTRIAXONE IN IS-OSM DEXTROSE 2 GM/50 ML BAG IVPB SCH (11:15)
[2017-10-23] MEDS ORDERED: IRON SUCROSE INJECTION 300 MG in SODIUM CHLORIDE 235 ML IVPB ONE (11:15)
[2017-10-23 11:28] LABS: BASO % 1.5 % (0-2.0); EOS % 0.7 % (0-4.5); HEMATOCRIT 33.9 % (32.4-45.2); HEMOGLOBIN 10.4 GM/dL (10.7-15.3); LYMPH % 25.8 % (8-40); MCHC 30.7 g/dl (32.0-36.0); MEAN CELL VOLUME 63.7 fl (80-96); MEAN PLT VOLUME 8.8 fl (7.5-11.1); MONO % 5.9 % (3.8-10.2); NEUT % 66.1 % (42.8-82.8); PLATELET COUNT 380 K/MM3 (134-434); RBC 5.33 M/mm3 (3.60-5.2); RDW 19.3 % (11.6-15.6); WHITE BLOOD COUNT 8.4 K/mm3 (4.0-10.0)
[2017-10-23 11:30] LABS: MCH 19.5 pg (25.7-33.7)
[2017-10-23 11:46] LABS: ANION GAP 11 (8-16); BLOOD UREA NITROGEN 13 mg/dL (7-18); CALCIUM 9.3 mg/dL (8.5-10.1); CHLORIDE 98 mmol/L (98-107); CO2 27 mmol/L (21-32); CREATININE 0.7 mg/dL (0.55-1.02); GLUCOSE,RANDOM 270 mg/dL (74-106); POTASSIUM 4.7 mmol/L (3.5-5.1); SGOT/AST 14 U/L (15-37); SGPT/ALT 17 U/L (12-78); SODIUM 136 mmol/L (136-145)
[2017-10-23 11:49] LABS: ALK PHOS 149 U/L (45-117); BILIRUBIN,TOTAL 0.3 mg/dL (0.2-1.0); TOT PROT 6.9 g/dl (6.4-8.2)
--- NOTE | 2017-10-23 12:17 | EKG ---
Test Reason : Blood Pressure : / mmHG Vent. Rate : 086 BPM Atrial Rate : 086 BPM P-R Int : 142 ms QRS Dur : 074 ms QT Int : 354 ms P-R-T Axes : 031 000 062 degrees QTc Int : 423 ms NORMAL SINUS RHYTHM NORMAL ECG WHEN COMPARED WITH ECG OF 10-JUL-2017 13:49, NO SIGNIFICANT CHANGE WAS FOUND Confirmed by YOUNG AGUILA MD ([id number]) on 10/23/2017 12:17:09 PM Referred By: Confirmed By:YOUNG AGUILA MD
--- NOTE | 2017-10-23 13:15 | CONS ---
INFECTIOUS DISEASE CONSULTATION DATE OF CONSULTATION: DATE OF DICTATION: 10/23/2017 HISTORY OF PRESENT ILLNESS: This is a 42-year-old, diabetic female who was referred from the wound care center for ongoing management of a chronic right plantar ulcer. She is known to our service as we had previously treated her for osteomyelitis of the right foot in July 2017. At that time, she had on July 11, undergone a podiatric surgery of a deep abscess of the right foot, debrided by Dr. Mehdi Daniel at that time. Wound cultures were positive for group B streptococcus and Streptococcus viridans as well as Staphylococcus aureus. She was sent home with a PICC line and ceftriaxone which completed sometime around the end of August. She has been going to the wound care center and apparently was referred now for evaluation of the same wound which has become painful. She had had an MRI on July 14, 2017, which showed bone marrow edema of the proximal to the mid-5th metatarsal which could be neuropathic changes, but osteomyelitis could not be excluded. A foot x-ray now represents an old fracture deformity/Charcot changes involving the tarsal bones and base of the metatarsals. There is some inferior swelling and ulceration noted. The patient is afebrile. PAST MEDICAL HISTORY: Includes diabetes, hypertension, Charcot foot, chronic ulcer with osteomyelitis. MEDICATIONS: Include Prinivil, Lyrica, Celexa, insulin, Levemir, iron. ALLERGIES: None known. SOCIAL HISTORY: Nonsmoker. Denies substance abuse. HIV tested negative. Lives with her significant other and 3 children. FAMILY HISTORY: Noncontributory. REVIEW OF SYSTEMS: Respiratory: No cough, shortness of breath. Cardiac: No chest pain, palpitations, syncope. Gastrointestinal: No nausea, vomiting, diarrhea, weight loss. Genitourinary: No dysuria, hematuria, urinary frequency. PHYSICAL EXAMINATIONGeneral: She was a heavy-set woman, alert, in no acute distress. Vital Signs: Temperature was 98.3, pulse 90, blood pressure 140/76, respirations 19. Neck: Supple without adenopathy. Lungs: Clear to percussion and auscultation. Heart: S1, S2. Regular rhythm without audible murmur or gallop. Abdomen: Soft, nontender, not distended. Positive bowel sounds. No organomegaly. Extremities: Reveal a plantar ulcer in the metatarsal area with granulation tissue and an appearance of swelling and tenderness to touch. DIAGNOSTIC DATA: The white count was 9.1, hemoglobin 10.5, platelets of 412. BUN of 15, creatinine 0.8. Alkaline phosphatase 161. ASSESSMENT: Chronic right foot plantar ulcer status post surgery for drainage of an abscess in July, with MRI suggesting the possibility of osteomyelitis which may now be a chronic osteomyelitis. Previous wound cultures for group B streptococcus, Staphylococcus aureus, and Streptococcus viridans noted. For now, we will treat her with ceftriaxone and metronidazole. Obtain a bone scan rather than an MRI as she just recently had an MRI in July. May need retreatment again with long-term suppressive antibiotic therapy. Would obtain podiatric consultation as to need for surgery and debridement of the ulcer. The case was discussed with her primary care nurse practitioner. ESR and CRP have been ordered. ADITYA BLAND M.D. [id number]
--- NOTE | 2017-10-23 14:02 | CONSULT ---
Consult - text type - Consultation Consultation Note: Patient seen in bed. vss. Tmax 98.3 vsgi, +tender plantar medial right foot, +grade 2 ulceration right, + granulating well, -tender lateral aspect of ankle as compared to Friday, + rubor, -mal odor, -drainage esr=23, crp1.9, wbc=8.4, +improved fluctuance laterally Charcot foot(acute flare up) Grade 2- 3 ulceration om? abscess MRI. vascular Consult. Santyl dressing change. PT consult Non/partial weight bearing right foot. Wound c&s. Will follow till dc.
[2017-10-23] MEDS: CEFTRIAXONE IN IS-OSM DEXTROSE 2 GM/50 ML BAG IVPB SCH (17:39)
--- NOTE | 2017-10-23 18:46 | PN ---
Progress Note (short form) - Note Progress Note: Vascular Surgery Pt seen and examined. called to examine right diabetic foot ulcer. Wound cx's noted - pt on IV antibiotics. Dressing changed - wound is clean, pink, granulating. Pt has palpable DP and PT pulses. No need for any vascular intervention. Podiatry on case. Bone scan results pending. Billy Yan DO
[2017-10-23] MEDS ORDERED: INSULIN DETEMIR 100 UNITS/ML MDV SQ SCH (22:00)
--- NOTE | 2017-10-23 23:28 | CONSULT ---
Consult Consult Specialty:: endocrine Referred by:: elva estrada np Reason for Consultation:: diabetes mellitus - History of Present Illness Chief Complaint: foot infection and high sugars History of Present Illness: 42 year old woman who comes to the ED for treatment of an infected non-healing plantar ulcer of her right foot. She has had the ulcer since around June 2017. She has been receiving treatment in the wound clinic and hyperbarics. She was admitted 07/10/17-07/14/17 for osteomyelitis and was treated with Rocephin x 6 weeks. She was last seen in the wound clinic yesterday by Dr. Le. Admission was advised but she refused. She reports pain in the foot and foul- smelling discarge has had elevated blood sugars,frequent urination,taking levemir insulin but sugars are still elevated - History Source History Provided By: Patient - Past Medical History Cardio/Vascular: Yes: HTN Gastrointestinal: Yes: Constipation, GERD ...LMP: 09/11/17 Psych: Yes: Addictions, Anxiety, Bipolar, Depression, Panic, Psychosis, Schizophrenia, Other Endocrine: Yes: Diabetes Mellitus - Past Surgical History Past Surgical History: Yes: - Alcohol/Substance Use Hx Alcohol Use: Yes (OCCASIONALLY) - Smoking History Smoking history: Never smoked Have you smoked in the past 12 months: No Home Medications - Allergies Allergies/Adverse Reactions: Allergies Allergy/AdvReac Type Severity Reaction Status Date / Time No Known Allergies Allergy Verified 10/22/17 16:23 - Home Medications Home Medications: Ambulatory Orders Insulin Lispro [Humalog Kwikpen U-100] 10 unit SQ ACBK 07/10/17 Acetaminophen [Tylenol .Regular Strength -] 650 mg PO Q6H PRN tablet 07/15/17 Citalopram Hydrobromide [Celexa -] 20 mg PO DAILY #0 tab 07/15/17 Dapagliflozin Propanediol [Farxiga] 20 mg PO DAILY #0 tab 07/15/17 Insulin (Levemir) [Levemir Flexpen -] 32 units SQ HS #0 syr 07/15/17 Lisinopril [Prinivil] 10 mg PO DAILY tablet 07/15/17 Pregabalin [Lyrica -] 25 mg PO TID #0 tab 07/15/17 Review of Systems - Review of Systems Constitutional: reports: Lethargy Eyes: reports: Blurred Vision HENT: reports: No Symptoms Neck: reports: No Symptoms Cardiovascular: reports: No Symptoms Respiratory: reports: No Symptoms Gastrointestinal: reports: No Symptoms Genitourinary: reports: No Symptoms Breasts: reports: No Symptoms Reported Musculoskeletal: reports: Muscle Pain, Muscle Cramps, Muscle Weakness Integumentary: reports: No Symptoms Neurological: reports: Weakness Endocrine: reports: Unexplained Weight Gain Physical Exam Vital Signs: Vital Signs Temperature 98 F 10/23/17 16:30 Pulse Rate 88 10/23/17 16:30 Respiratory Rate 20 10/23/17 16:30 Blood Pressure 153/88 10/23/17 16:30 O2 Sat by Pulse Oximetry (%) 100 10/23/17 09:00 Constitutional: Yes: Calm Eyes: Yes: EOM Intact HENT: Yes: Normocephalic Neck: Yes: Trachea Midline Cardiovascular: Yes: Regular Rate and Rhythm Respiratory: Yes: CTA Bilaterally Gastrointestinal: Yes: Normal Bowel Sounds ...Rectal Exam: Yes: Deferred Renal/: Yes: WNL Musculoskeletal: Yes: Joint Stiffness, Muscle Pain, Muscle Weakness Extremities: Yes: Delayed Capillary Refill Wound/Incision: Yes: Dressing Dry and Intact Neurological: Yes: Alert, Oriented Labs: CBC, BMP 10/23/17 10:55 10/23/17 10:55 Problem List - Problems (1) Osteomyelitis, chronic Code(s): M86.60 - OTHER CHRONIC OSTEOMYELITIS, UNSPECIFIED SITE (2) Uncontrolled type 2 diabetes mellitus Code(s): E11.65 - TYPE 2 DIABETES MELLITUS WITH HYPERGLYCEMIA (3) DKA (diabetic ketoacidoses) Code(s): E13.10 - OTH DIABETES MELLITUS WITH KETOACIDOSIS WITHOUT COMA Qualifiers: Diabetes mellitus type: type 2 Diabetes mellitus complication detail: without coma Qualified Code(s): E13.10 - Other specified diabetes mellitus with ketoacidosis without coma (4) DVT prophylaxis Code(s): [id number] - Assessment/Plan Current Active Problems Anemia (Acute) Osteomyelitis, chronic (Acute) Uncontrolled type 2 diabetes mellitus (Acute) diabetes mellitus hyperglycemia Abnormal Lab Results 10/23/17 10/23/17 10/23/17 10:46 10:55 10:55 RBC 5.33 H Hgb 10.4 L MCV 63.7 L MCH 19.5 L MCHC 30.7 L RDW 19.3 H ESR 23 H Random Glucose 270 H AST 14 L Alkaline Phosphatase 149 H C-Reactive Protein 1.9 H Albumin 3.0 L Laboratory Results - last 24 hr 10/23/17 10/23/17 10/23/17 05:54 10:46 10:46 WBC RBC Hgb Hct MCV MCH MCHC RDW Plt Count MPV Neutrophils % Lymphocytes % Monocytes % Eosinophils % Basophils % ESR 23 H Sodium Potassium Chloride Carbon Dioxide Anion Gap BUN Creatinine Creat Clearance w eGFR POC Glucometer 252 Random Glucose Calcium Total Bilirubin AST ALT Alkaline Phosphatase C-Reactive Protein Cancelled Total Protein Albumin 10/23/17 10/23/17 10/23/17 10:55 10:55 12:35 WBC 8.4 RBC 5.33 H Hgb 10.4 L Hct 33.9 MCV 63.7 L MCH 19.5 L MCHC 30.7 L RDW 19.3 H Plt Count 380 MPV 8.8 Neutrophils % 66.1 Lymphocytes % 25.8 Monocytes % 5.9 Eosinophils % 0.7 D Basophils % 1.5 ESR Sodium 136 Potassium 4.7 Chloride 98 Carbon Dioxide 27 Anion Gap 11 BUN 13 Creatinine 0.7 Creat Clearance w eGFR > 60 POC Glucometer 367 Random Glucose 270 H Calcium 9.3 Total Bilirubin 0.3 D AST 14 L ALT 17 Alkaline Phosphatase 149 H C-Reactive Protein 1.9 H Total Protein 6.9 Albumin 3.0 L 10/23/17 10/23/17 17:47 21:14 WBC RBC Hgb Hct MCV MCH MCHC RDW Plt Count MPV Neutrophils % Lymphocytes % Monocytes % Eosinophils % Basophils % ESR Sodium Potassium Chloride Carbon Dioxide Anion Gap BUN Creatinine Creat Clearance w eGFR POC Glucometer 317 277 Random Glucose Calcium Total Bilirubin AST ALT Alkaline Phosphatase C-Reactive Protein Total Protein Albumin plan: bgm qid novolog scale coverage achs levemir 25 units am ck hba1c nutritiion consult
[2017-10-24] MEDS: HEPARIN NA (PORCINE) 5,000 UNITS/ML 1ML VIAL SQ SCH ×3 (06:55→21:34)
[2017-10-24] MEDS: INSULIN SLIDING SCALE (NOVOLOG) 1 VIAL SQ SCH ×4 (06:56→21:38)
[2017-10-24] MEDS: INSULIN DETEMIR 100 UNITS/ML MDV SQ SCH (06:56)
[2017-10-24] MEDS: PREGABALIN 25 MG CAPSULE PO SCH ×3 (06:56→21:34)
[2017-10-24 07:34] LABS: ALBUMIN 2.9 g/dl (3.4-5.0); ANION GAP 6 (8-16); BLOOD UREA NITROGEN 16 mg/dL (7-18); CALCIUM 8.2 mg/dL (8.5-10.1); CHLORIDE 106 mmol/L (98-107); CO2 28 mmol/L (21-32); CREATININE 0.8 mg/dL (0.55-1.02); POTASSIUM 4.5 mmol/L (3.5-5.1); SGOT/AST 16 U/L (15-37); SGPT/ALT 16 U/L (12-78); SODIUM 140 mmol/L (136-145)
[2017-10-24 07:45] LABS: ALK PHOS 134 U/L (45-117); BILIRUBIN,TOTAL 0.2 mg/dL (0.2-1.0); TOT PROT 6.5 g/dl (6.4-8.2)
[2017-10-24 07:57] LABS: BASO % 2.1 % (0-2.0); EOS % 1.9 % (0-4.5); GLUCOSE,RANDOM 39 mg/dL (74-106); HEMATOCRIT 33.3 % (32.4-45.2); HEMOGLOBIN 10.3 GM/dL (10.7-15.3); LYMPH % 38.6 % (8-40); MCHC 30.9 g/dl (32.0-36.0); MEAN PLT VOLUME 8.8 fl (7.5-11.1); MONO % 7.7 % (3.8-10.2); NEUT % 49.7 % (42.8-82.8); PLATELET COUNT 370 K/MM3 (134-434); RDW 19.1 % (11.6-15.6); WHITE BLOOD COUNT 6.8 K/mm3 (4.0-10.0)
[2017-10-24 08:09] LABS: ADD RBC MORPHOLOGY YES; MCH 19.8 pg (25.7-33.7)
[2017-10-24] MEDS ORDERED: PT OWN MED DRAWER 7, Y5N ONE (08:40)
[2017-10-24] MEDS: CEFTRIAXONE IN IS-OSM DEXTROSE 2 GM/50 ML BAG IVPB SCH (09:13)
[2017-10-24] MEDS: COLLAGENASE CLOSTRIDIUM HIST. 30 GRAMS TUBE TP SCH (09:14)
[2017-10-24] MEDS: LISINOPRIL 10 MG TABLET (FP) PO SCH (09:14)
[2017-10-24] MEDS: CITALOPRAM HYDROBROMIDE 20 MG TABLET (FP) PO SCH (09:14)
--- NOTE | 2017-10-24 11:09 | PN ---
Progress Note, Physician Chief Complaint: in bed no distress wants to go home on iv abx - Current Medication List Current Medications: Active Medications Acetaminophen (Tylenol -) 650 mg PO Q4H PRN PRN Reason: PAIN OR FEVER Citalopram Hydrobromide (Celexa -) 20 mg PO DAILY [facility] Last Admin: 10/24/17 09:14 Dose: 20 mg Collagenase (Santyl -) 1 applic TP DAILY [facility] Last Admin: 10/24/17 09:14 Dose: 1 applic Ergocalciferol (Drisdol -) 50,000 unit PO Q7D@1000 [facility] Heparin Sodium (Porcine) (Heparin -) 5,000 unit SQ TID [facility] Last Admin: 10/24/17 06:55 Dose: 5,000 unit Metronidazole (Flagyl 500mg Premixed Ivpb -) 500 mg in 100 mls @ 100 mls/hr IVPB Q8H-IV [facility] Last Admin: 10/24/17 09:14 Dose: 100 mls/hr CEFTRIAXONE IN IS-OSM DEXTROSE (Ceftriaxone 2 Gm-D5w Bag) 2 gm in 50 mls @ 200 mls/hr IVPB DAILY [facility] Last Admin: 10/24/17 09:13 Dose: 200 mls/hr Insulin Aspart (Novolog Vial Sliding Scale -) 1 vial SQ ACHS [facility] PRN Reason: Protocol Last Admin: 10/24/17 06:56 Dose: Not Given Insulin Detemir (Levemir Vial) 25 units SQ AM [facility] Last Admin: 10/24/17 06:56 Dose: Not Given Insulin Detemir (Levemir Vial) 15 units SQ HS [facility] Lisinopril (Prinivil) 10 mg PO DAILY [facility] Last Admin: 10/24/17 09:14 Dose: 10 mg Ondansetron HCl (Zofran Injection) 4 mg IVPUSH Q6H PRN PRN Reason: NAUSEA Pregabalin (Lyrica -) 25 mg PO TID [facility] Last Admin: 10/24/17 06:56 Dose: 25 mg - Objective Vital Signs: Vital Signs Temperature 98.4 F 10/24/17 06:11 Pulse Rate 88 10/24/17 06:11 Respiratory Rate 20 10/24/17 06:11 Blood Pressure 116/59 10/24/17 06:11 O2 Sat by Pulse Oximetry (%) 100 02/22/18 21:00 Constitutional: Yes: Calm Cardiovascular: Yes: Regular Rate and Rhythm, S1, S2 Respiratory: Yes: CTA Bilaterally Gastrointestinal: Yes: Normal Bowel Sounds, Soft Wound/Incision: Yes: Dressing Removed (right foot ulcer seen pink no fould odour ) Labs: CBC, BMP 10/24/17 06:00 10/24/17 06:00 Problem List - Problems (1) Uncontrolled type 2 diabetes mellitus Assessment/Plan: hgba1c noted endocrine saw the patient levemir Code(s): E11.65 - TYPE 2 DIABETES MELLITUS WITH HYPERGLYCEMIA (2) Diabetic foot ulcer Assessment/Plan: iv abx awiaitng bone scan report to r/o osteo appreicate vascular surgery consult- collagenase Code(s): E11.621 - TYPE 2 DIABETES MELLITUS WITH FOOT ULCER; L97.509 - NON- PRESSURE CHRONIC ULCER OTH PRT UNSP FOOT W UNSP SEVERITY Qualifiers: Diabetic foot ulcer location: midfoot Diabetes mellitus type: type 2 Laterality: right Non-pressure ulcer stage: with muscle involvement without evidence of necrosis Qualified Code(s): E11.621 - Type 2 diabetes mellitus with foot ulcer; L97.415 - Non-pressure chronic ulcer of right heel and midfoot with muscle involvement without evidence of necrosis; L97.415 - Non-pressure chronic ulcer of right heel and midfoot with muscle involvement without evidence of necrosis; L97.415 - Non-pressure chronic ulcer of right heel and midfoot with muscle involvement without evidence of necrosis; L97.415 - Non- pressure chronic ulcer of right heel and midfoot with muscle involvement without evidence of necrosis (3) Anemia Assessment/Plan: iron panel pending iv venofer Code(s): D64.9 - ANEMIA, UNSPECIFIED
[2017-10-24] MEDS ORDERED: INSULIN (NOVOLOG) ASPART 100 UNITS/ML 10ML VIAL ONE ×2 (12:09→21:37)
[2017-10-24 12:36] LABS: ANISOCYTOSIS 1+; MACROCYTOSIS 0; OVALOCYTE 1+; PLATELET ESTIMATE NORMAL; TARGET CELLS 1+
--- NOTE | 2017-10-24 14:56 | CONSULT ---
Consult - text type - Consultation Consultation Note: Patient seen in bed. vss. Tmax 98.4 vsgi, +resolved tenderness plantar medial right foot, +grade 2 ulceration right , +granulating well, -tender lateral aspect of ankle as compared to Friday, + resolved rubor, -mal odor, -drainage esr=23, crp1.9, wbc=6.8, +improved fluctuance laterally, vascular no intervention Charcot foot(acute flare up) Grade 2- 3 ulceration om? abscess MRI. Awaiting bone scan result. Santyl dressing change not done yet spoke to nurse getting done today. PT consult Non/partial weight bearing right foot. Wound c&s. Will follow till dc. If patient continues to improve and ok with medicine and ID can DC to home with IVABX and partial or non weight bearing right foot. Will follow till dc.
--- NOTE | 2017-10-24 19:55 | PN ---
Progress Note, Physician Chief Complaint: comfortable tolerating diet no complaint History of Present Illness: dm,diabetic foot infection wound healing with wound care - Current Medication List Current Medications: Active Medications Acetaminophen (Tylenol -) 650 mg PO Q4H PRN PRN Reason: PAIN OR FEVER Citalopram Hydrobromide (Celexa -) 20 mg PO DAILY [facility] Last Admin: 10/24/17 09:14 Dose: 20 mg Collagenase (Santyl -) 1 applic TP DAILY [facility] Last Admin: 10/24/17 09:14 Dose: 1 applic Ergocalciferol (Drisdol -) 50,000 unit PO Q7D@1000 [facility] Heparin Sodium (Porcine) (Heparin -) 5,000 unit SQ TID [facility] Last Admin: 10/24/17 14:13 Dose: 5,000 unit Metronidazole (Flagyl 500mg Premixed Ivpb -) 500 mg in 100 mls @ 100 mls/hr IVPB Q8H-IV [facility] Last Admin: 10/24/17 18:12 Dose: 100 mls/hr CEFTRIAXONE IN IS-OSM DEXTROSE (Ceftriaxone 2 Gm-D5w Bag) 2 gm in 50 mls @ 200 mls/hr IVPB DAILY [facility] Last Admin: 10/24/17 09:13 Dose: 200 mls/hr Insulin Aspart (Novolog Vial Sliding Scale -) 1 vial SQ ACHS [facility] PRN Reason: Protocol Last Admin: 10/24/17 18:12 Dose: 4 units Insulin Detemir (Levemir Vial) 25 units SQ AM [facility] Last Admin: 10/24/17 06:56 Dose: Not Given Lisinopril (Prinivil) 10 mg PO DAILY [facility] Last Admin: 10/24/17 09:14 Dose: 10 mg Ondansetron HCl (Zofran Injection) 4 mg IVPUSH Q6H PRN PRN Reason: NAUSEA Pregabalin (Lyrica -) 25 mg PO TID [facility] Last Admin: 10/24/17 14:13 Dose: 25 mg - Objective Vital Signs: Vital Signs Temperature 98.9 F 10/24/17 14:59 Pulse Rate 93 H 10/24/17 14:59 Respiratory Rate 18 10/24/17 14:59 Blood Pressure 150/76 10/24/17 14:59 O2 Sat by Pulse Oximetry (%) 98 10/24/17 09:00 Constitutional: Yes: Well Nourished Eyes: Yes: EOM Intact HENT: Yes: Normocephalic Neck: Yes: Trachea Midline Cardiovascular: Yes: Regular Rate and Rhythm Respiratory: Yes: CTA Bilaterally Gastrointestinal: Yes: Normal Bowel Sounds ...Rectal Exam: Yes: WNL Genitourinary: Yes: WNL Breast(s): Yes: WNL Musculoskeletal: Yes: WNL Extremities: Yes: WNL Edema: No Peripheral Pulses WNL: Yes Integumentary: Yes: Venous Stasis Changes Wound/Incision: Yes: Dressing Dry and Intact Neurological: Yes: Alert, Oriented Labs: CBC, BMP 10/24/17 06:00 10/24/17 06:00 Problem List - Problems (1) Osteomyelitis, chronic Code(s): M86.60 - OTHER CHRONIC OSTEOMYELITIS, UNSPECIFIED SITE (2) Uncontrolled type 2 diabetes mellitus Code(s): E11.65 - TYPE 2 DIABETES MELLITUS WITH HYPERGLYCEMIA (3) DKA (diabetic ketoacidoses) Code(s): E13.10 - OTH DIABETES MELLITUS WITH KETOACIDOSIS WITHOUT COMA Qualifiers: Diabetes mellitus type: type 2 Diabetes mellitus complication detail: without coma Qualified Code(s): E13.10 - Other specified diabetes mellitus with ketoacidosis without coma (4) DVT prophylaxis Code(s): [id number] - Assessment/Plan Current Active Problems Anemia (Acute) Osteomyelitis, chronic (Acute) Uncontrolled type 2 diabetes mellitus (Acute) diabetes mellitus labile blood sugars Abnormal Lab Results 10/24/17 10/24/17 10/24/17 06:00 06:00 06:00 Hgb 10.3 L MCV 64.0 L MCH 19.8 L MCHC 30.9 L RDW 19.1 H Basophils % 2.1 H Anion Gap 6 L Random Glucose 39 L* Hemoglobin A1c % Calcium 8.2 L Alkaline Phosphatase 134 H Albumin 2.9 L Vitamin B12 933 H Serum Folate 19 H 10/24/17 06:00 Hgb MCV MCH MCHC RDW Basophils % Anion Gap Random Glucose Hemoglobin A1c % 11.5 H Calcium Alkaline Phosphatase Albumin Vitamin B12 Serum Folate Laboratory Tests 10/23/17 10/23/17 10/23/17 05:54 12:35 17:47 Sodium Potassium Carbon Dioxide Anion Gap BUN Creatinine POC Glucometer 252 367 317 Calcium TSH 10/23/17 10/24/17 10/24/17 21:14 06:00 06:01 Sodium 140 Potassium 4.5 Carbon Dioxide 28 Anion Gap 6 L BUN 16 Creatinine 0.8 POC Glucometer 277 50 Calcium 8.2 L TSH 0.90 plan:\ dc hs levemir levemir am 25 units daily\ novolog ac meals Laboratory Tests 10/24/17 06:00 Hemoglobin A1c % 11.5 H will need watermelon inspector follow up with nutrition and insulin regimen changes
[2017-10-24] MEDS ORDERED: INSULIN DETEMIR 100 UNITS/ML MDV SQ SCH (22:00)
[2017-10-25] MEDS: HEPARIN NA (PORCINE) 5,000 UNITS/ML 1ML VIAL SQ SCH ×2 (05:51→14:49)
[2017-10-25] MEDS: PREGABALIN 25 MG CAPSULE PO SCH ×2 (05:55→14:49)
[2017-10-25] MEDS: INSULIN DETEMIR 100 UNITS/ML MDV SQ SCH (06:22)
[2017-10-25] MEDS: INSULIN SLIDING SCALE (NOVOLOG) 1 VIAL SQ SCH ×3 (06:22→17:06)
[2017-10-25 08:07] LABS: SERUM IRON SATURATION 95 % (15-55); TOTAL IRON BINDING CAPACITY 334 ug/dL (250-450); UIBC 17 ug/dL (131-425)
[2017-10-25 08:16] LABS: EOS % 2.1 % (0-4.5); HEMATOCRIT 32.3 % (32.4-45.2); LYMPH % 25.9 % (8-40); MCHC 30.8 g/dl (32.0-36.0); MEAN CELL VOLUME 64.3 fl (80-96); MONO % 7.6 % (3.8-10.2); NEUT % 62.4 % (42.8-82.8); PLATELET COUNT 351 K/MM3 (134-434); RBC 5.02 M/mm3 (3.60-5.2); RDW 19.4 % (11.6-15.6); WHITE BLOOD COUNT 6.4 K/mm3 (4.0-10.0)
[2017-10-25 08:21] LABS: MCH 19.8 pg (25.7-33.7)
[2017-10-25 08:23] LABS: ALBUMIN 2.8 g/dl (3.4-5.0); ANION GAP 8 (8-16); BLOOD UREA NITROGEN 14 mg/dL (7-18); CALCIUM 8.3 mg/dL (8.5-10.1); CHLORIDE 103 mmol/L (98-107); CO2 25 mmol/L (21-32); GLUCOSE,RANDOM 345 mg/dL (74-106); POTASSIUM 4.8 mmol/L (3.5-5.1); SODIUM 136 mmol/L (136-145)
[2017-10-25 08:28] LABS: ALK PHOS 128 U/L (45-117); BILIRUBIN,TOTAL 0.4 mg/dL (0.2-1.0); CREATININE 0.8 mg/dL (0.55-1.02); SGOT/AST 12 U/L (15-37); SGPT/ALT 13 U/L (12-78); TOT PROT 6.2 g/dl (6.4-8.2)
[2017-10-25] MEDS: CEFTRIAXONE IN IS-OSM DEXTROSE 2 GM/50 ML BAG IVPB SCH (10:12)
--- NOTE | 2017-10-25 10:12 | PN ---
Physical Exam: SUBJECTIVE: Patient seen and examined. She has no complaints. OBJECTIVE: Vital Signs Period Temp Pulse Resp BP Sys/[place] Pulse Ox Last 24 Hr 98.7 F-98.9 F 85-93 18-20 122-150/69-76 99 GENERAL: The patient is awake, alert, and fully oriented, in no acute distress. LUNGS: Breath sounds equal, clear to auscultation bilaterally, no wheezes, no crackles, no accessory muscle use. HEART: Regular rate and rhythm, S1, S2 without murmur, rub or gallop. ABDOMEN: Obese, soft, nontender, nondistended, normoactive bowel sounds, no guarding, no rebound, no hepatosplenomegaly, no masses. EXTREMITIES: 2+ pulses, warm, well-perfused, trace edema. Laboratory Results - last 24 hr 10/24/17 10/24/17 10/24/17 06:00 06:00 06:00 WBC RBC Hgb Hct MCV MCH MCHC RDW Plt Count MPV Neutrophils % Lymphocytes % Monocytes % Eosinophils % Basophils % Hypochromia 1+ Platelet Estimate Normal Polychromasia 1+ Poikilocytosis 0 Anisocytosis 1+ Microcytosis 2+ Macrocytosis 0 Target Cells 1+ Ovalocytes 1+ Schistocytes 1+ Sodium Potassium Chloride Carbon Dioxide Anion Gap BUN Creatinine Creat Clearance w eGFR POC Glucometer Random Glucose Hemoglobin A1c % 11.5 H Calcium Iron 317 H TIBC 334 Iron Saturation 95 H Total Bilirubin AST ALT Alkaline Phosphatase Total Protein Albumin 10/24/17 10/24/17 10/24/17 11:43 17:17 21:35 WBC RBC Hgb Hct MCV MCH MCHC RDW Plt Count MPV Neutrophils % Lymphocytes % Monocytes % Eosinophils % Basophils % Hypochromia Platelet Estimate Polychromasia Poikilocytosis Anisocytosis Microcytosis Macrocytosis Target Cells Ovalocytes Schistocytes Sodium Potassium Chloride Carbon Dioxide Anion Gap BUN Creatinine Creat Clearance w eGFR POC Glucometer 249 188 309 Random Glucose Hemoglobin A1c % Calcium Iron TIBC Iron Saturation Total Bilirubin AST ALT Alkaline Phosphatase Total Protein Albumin 10/25/17 10/25/17 10/25/17 05:53 06:30 06:30 WBC 6.4 RBC 5.02 Hgb 10.0 L Hct 32.3 L MCV 64.3 L MCH 19.8 L MCHC 30.8 L RDW 19.4 H Plt Count 351 MPV 9.0 Neutrophils % 62.4 D Lymphocytes % 25.9 D Monocytes % 7.6 Eosinophils % 2.1 Basophils % 2.0 Hypochromia Platelet Estimate Polychromasia Poikilocytosis Anisocytosis Microcytosis Macrocytosis Target Cells Ovalocytes Schistocytes Sodium 136 Potassium 4.8 Chloride 103 Carbon Dioxide 25 Anion Gap 8 BUN 14 Creatinine 0.8 Creat Clearance w eGFR > 60 POC Glucometer 380 Random Glucose 345 H* Hemoglobin A1c % Calcium 8.3 L Iron TIBC Iron Saturation Total Bilirubin 0.4 D AST 12 L ALT 13 Alkaline Phosphatase 128 H Total Protein 6.2 L Albumin 2.8 L Active Medications Generic Name Dose Route Start Last Admin Trade Name Freq PRN Reason Stop Dose Admin Acetaminophen 650 mg 10/23/17 01:20 Tylenol - PO Q4H PRN PAIN OR FEVER Citalopram Hydrobromide 20 mg 10/23/17 10:00 10/24/17 09:14 Celexa - PO 20 mg DAILY NILO Administration Collagenase 1 applic 10/24/17 10:00 10/24/17 09:14 Santyl - TP 1 applic DAILY NILO Administration Ergocalciferol 50,000 unit 10/30/17 10:00 Drisdol - PO Q7D@1000 NILO Heparin Sodium (Porcine) 5,000 unit 10/23/17 06:00 10/25/17 05:51 Heparin - SQ 5,000 unit TID NILO Administration Metronidazole 500 mg in 100 mls @ 100 mls/hr 10/23/17 18:00 10/25/17 01:19 Flagyl 500mg Premixed Ivpb - IVPB 100 mls/hr Q8H-IV NILO Administration CEFTRIAXONE IN IS-OSM DEXTROSE 2 gm in 50 mls @ 200 mls/hr 10/23/17 14:30 09:13 Ceftriaxone 2 Gm-D5w Bag IVPB 200 mls/hr DAILY NILO Administration Insulin Aspart 1 vial 10/23/17 23:29 10/25/17 06:22 Novolog Vial Sliding Scale - SQ 10 units ACHS NILO Administration Protocol Insulin Detemir 25 units 10/24/17 07:00 10/25/17 06:22 Levemir Vial SQ 25 units AM NILO Administration Lisinopril 10 mg 10/23/17 10:00 10/24/17 09:14 Prinivil PO 10 mg DAILY NILO Administration Ondansetron HCl 4 mg 10/23/17 01:24 Zofran Injection IVPUSH Q6H PRN NAUSEA Pregabalin 25 mg 10/23/17 06:00 10/25/17 05:55 Lyrica - PO 25 mg TID NILO Administration ASSESSMENT/PLAN:
[2017-10-25] MEDS: CITALOPRAM HYDROBROMIDE 20 MG TABLET (FP) PO SCH (10:13)
[2017-10-25] MEDS: COLLAGENASE CLOSTRIDIUM HIST. 30 GRAMS TUBE TP SCH (10:13)
[2017-10-25] MEDS: LISINOPRIL 10 MG TABLET (FP) PO SCH (10:13)
--- NOTE | 2017-10-25 11:13 | PN ---
Progress Note, Physician Chief Complaint: ID Ceftriaxone and Metronidazole Offers no complaints - Current Medication List Current Medications: Active Medications Acetaminophen (Tylenol -) 650 mg PO Q4H PRN PRN Reason: PAIN OR FEVER Citalopram Hydrobromide (Celexa -) 20 mg PO DAILY [facility] Last Admin: 10/25/17 10:13 Dose: 20 mg Collagenase (Santyl -) 1 applic TP DAILY [facility] Last Admin: 10/25/17 10:13 Dose: 1 applic Ergocalciferol (Drisdol -) 50,000 unit PO Q7D@1000 NILO Heparin Sodium (Porcine) (Heparin -) 5,000 unit SQ TID [facility] Last Admin: 10/25/17 05:51 Dose: 5,000 unit Metronidazole (Flagyl 500mg Premixed Ivpb -) 500 mg in 100 mls @ 100 mls/hr IVPB Q8H-IV [facility] Last Admin: 10/25/17 10:56 Dose: 100 mls/hr CEFTRIAXONE IN IS-OSM DEXTROSE (Ceftriaxone 2 Gm-D5w Bag) 2 gm in 50 mls @ 200 mls/hr IVPB DAILY [facility] Last Admin: 10/25/17 10:12 Dose: 200 mls/hr Insulin Aspart (Novolog Vial Sliding Scale -) 1 vial SQ ACHS [facility] PRN Reason: Protocol Last Admin: 10/25/17 06:22 Dose: 10 units Insulin Detemir (Levemir Vial) 25 units SQ AM [facility] Last Admin: 10/25/17 06:22 Dose: 25 units Lisinopril (Prinivil) 10 mg PO DAILY [facility] Last Admin: 10/25/17 10:13 Dose: 10 mg Ondansetron HCl (Zofran Injection) 4 mg IVPUSH Q6H PRN PRN Reason: NAUSEA Pregabalin (Lyrica -) 25 mg PO TID [facility] Last Admin: 10/25/17 05:55 Dose: 25 mg - Objective Vital Signs: Vital Signs Temperature 98.8 F 10/25/17 09:37 Pulse Rate 92 H 10/25/17 09:37 Respiratory Rate 20 10/25/17 09:37 Blood Pressure 122/69 10/25/17 09:37 O2 Sat by Pulse Oximetry (%) 99 10/24/17 21:00 Extremities: Yes: Other (Right foot plantar ulcer per nursing staff also now no drainage cellulitis) Labs: CBC, BMP 02/24/18 06:30 10/25/17 06:30 Problem List - Problems (1) Osteomyelitis, chronic Code(s): M86.60 - OTHER CHRONIC OSTEOMYELITIS, UNSPECIFIED SITE (2) Diabetic foot ulcer Code(s): E11.621 - TYPE 2 DIABETES MELLITUS WITH FOOT ULCER; L97.509 - NON- PRESSURE CHRONIC ULCER OTH PRT UNSP FOOT W UNSP SEVERITY Qualifiers: Diabetic foot ulcer location: midfoot Diabetes mellitus type: type 2 Laterality: right Non-pressure ulcer stage: with muscle involvement without evidence of necrosis Qualified Code(s): E11.621 - Type 2 diabetes mellitus with foot ulcer; L97.415 - Non-pressure chronic ulcer of right heel and midfoot with muscle involvement without evidence of necrosis; L97.415 - Non-pressure chronic ulcer of right heel and midfoot with muscle involvement without evidence of necrosis; L97.415 - Non-pressure chronic ulcer of right heel and midfoot with muscle involvement without evidence of necrosis; L97.415 - Non- pressure chronic ulcer of right heel and midfoot with muscle involvement without evidence of necrosis Assessment/Plan Laboratory Tests 10/23/17 10/23/17 10/25/17 10:46 10:55 06:30 WBC 6.4 Hgb 10.0 L ESR 23 H C-Reactive Protein 1.9 H Assessment Chronic nonhealing plantar ulcer As anticipated Bone scan equivocal positive but could be Charcot Her ESR and CRP low She looks well Plan Would discharge on no antibiotics and have her follow with wound care and podiatry Tani MALLORY
[2017-10-25 14:12] VITALS: BP 143/89; PULSE 96; TEMP 99.1
--- NOTE | 2017-10-25 17:13 | DS ---
Physical Exam: SUBJECTIVE: Patient seen and examined OBJECTIVE: Vital Signs Period Temp Pulse Resp BP Sys/[place] Pulse Ox Last 24 Hr 98.7 F-99.1 F 85-96 18-20 122-143/69-89 99-100 PHYSICAL EXAM GENERAL: Awake, alert, and fully oriented, in no acute distress. LUNGS: Breath sounds equal, clear to auscultation bilaterally. No wheezes, and no crackles. No accessory muscle use. HEART: Regular rate and rhythm, normal S1 and S2 without murmur, rub or gallop. ABDOMEN: Obese, soft, nontender, not distended, normoactive bowel sounds, no guarding, no rebound, no masses. No hepatomegaly or splenomegaly. EXTREMITIES: 2+ pulses, warm, well-perfused. No calf tenderness. Trace edema. Ulcer of mid plantar surface of right foot with no drainage. LABS Laboratory Results - last 24 hr 10/24/17 10/24/17 10/24/17 06:00 17:17 21:35 WBC RBC Hgb Hct MCV MCH MCHC RDW Plt Count MPV Neutrophils % Lymphocytes % Monocytes % Eosinophils % Basophils % Sodium Potassium Chloride Carbon Dioxide Anion Gap BUN Creatinine Creat Clearance w eGFR POC Glucometer 188 309 Random Glucose Calcium Iron 317 H TIBC 334 Iron Saturation 95 H Total Bilirubin AST ALT Alkaline Phosphatase Total Protein Albumin 10/25/17 10/25/17 10/25/17 05:53 06:30 06:30 WBC 6.4 RBC 5.02 Hgb 10.0 L Hct 32.3 L MCV 64.3 L MCH 19.8 L MCHC 30.8 L RDW 19.4 H Plt Count 351 MPV 9.0 Neutrophils % 62.4 D Lymphocytes % 25.9 D Monocytes % 7.6 Eosinophils % 2.1 Basophils % 2.0 Sodium 136 Potassium 4.8 Chloride 103 Carbon Dioxide 25 Anion Gap 8 BUN 14 Creatinine 0.8 Creat Clearance w eGFR > 60 POC Glucometer 380 Random Glucose 345 H* Calcium 8.3 L Iron TIBC Iron Saturation Total Bilirubin 0.4 D AST 12 L ALT 13 Alkaline Phosphatase 128 H Total Protein 6.2 L Albumin 2.8 L 10/25/17 11:29 WBC RBC Hgb Hct MCV MCH MCHC RDW Plt Count MPV Neutrophils % Lymphocytes % Monocytes % Eosinophils % Basophils % Sodium Potassium Chloride Carbon Dioxide Anion Gap BUN Creatinine Creat Clearance w eGFR POC Glucometer 309 Random Glucose Calcium Iron TIBC Iron Saturation Total Bilirubin AST ALT Alkaline Phosphatase Total Protein Albumin HOSPITAL COURSE: Date of Admission:10/22/17 Date of Discharge: 10/25/17 Minutes to complete discharge: 30 Discharge Summary Reason For Visit: TYPE 2 DIABETES MELLITUS WITH FOOT ULCER Current Active Problems Obesity (BMI 30-39.9) (Chronic) Depression (Chronic) Hypertension (Chronic) Diabetic foot ulcer (Chronic) Osteomyelitis, chronic (Chronic) Uncontrolled type 2 diabetes mellitus (Chronic) Anemia (Chronic) Hospital Course: This is a 42 year old woman who presented to the ED on 10/22/17 for treatment of an infected non-healing plantar ulcer of her right foot. She had the ulcer since June 2017. She was being treated in the wound clinic and hyperbarics. She had been admitted 07/10/17-07/14/17 for osteomyelitis and was treated with Rocephin x 6 weeks. She had been seen in the wound clinic on 10/[address] Le. Admission was advised but she refused. She reported having pain in the foot and foul-smelling drainage from the ulcer. She denied fever, chills. In the ED, her temp was 99.3, WBC was 9.1. On exam, her right foot was edematous with foul-smelling drainage from an ulcer of the plantar surface. She was treated with Zosyn and Vancomycin. X-rays of the right foot showed changes consistent with Charcot foot, unchanged from prior. She was admitted for continued treatment of the ulcer with probable chronic osteomyelitis. She was seen by ID and antibiotics were changed to Rocephin and Flagyl. She was seen by vascular surgery and there was no indication for intervention. She was seen by podiatry and endocrine. Her diabetes regimen was adjusted. ESR was found to be 23 and C-RP was found to be 1.9. Bone scan showed increased blood flow, blood pool and delayed uptake in the right mid foot, consistent with osteomyelitis, Charcot foot, or trauma. It was felt that there was no acute infection and antibiotics were discontinued. She was advised to be non or partial weight bearing on her right foot. She is being discharged home on 10/25/17. She is advised to follow-up with Dr. Lopez and Dr. Correa this week. She is advised to follow-up with Dr. Le in the wound clinic this week. Condition: Stable - Instructions Diet, Activity, Other Instructions: You were admitted for treatment of a non-healing ulcer of your right foot and uncontrolled diabetes. There does not appear to be an active infection. You should follow a diabetic diet. You should not put weight on your right foot. Your insulin dose has been adjusted. Please schedule appointments with Dr. Lopez and Dr. Correa this week. Please follow up with Dr. Le in the wound care clinic this week. Referrals: Logan Correa MD [Staff Physician] - 1 Week Angel Lopez MD [Primary Care Provider] - 1 Week Disposition: HOME - Home Medications Comprehensive Discharge Medication List: Ambulatory Orders Insulin Lispro [Humalog Kwikpen U-100] 10 unit SQ ACBK 07/10/17 Acetaminophen [Tylenol .Regular Strength -] 650 mg PO Q6H PRN tablet 07/15/17 Citalopram Hydrobromide [Celexa -] 20 mg PO DAILY #0 tab 07/15/17 Dapagliflozin Propanediol [Farxiga] 20 mg PO DAILY #0 tab 07/15/17 Lisinopril [Prinivil] 10 mg PO DAILY tablet 07/15/17 Pregabalin [Lyrica -] 25 mg PO TID #0 tab 07/15/17 Collagenase Clostridium Hist. [Santyl -] 1 applic TP DAILY #1 tube 10/25/17 Ergocalciferol [Vitamin D2] 50,000 unit PO Q7D@1000 capsule 10/25/17 Gauze Bandage [Gauze Pads] 1 each TP DAILY #30 bandage 10/25/17 Insulin (Levemir) [Levemir Vial] 25 units SQ AM ml 10/25/17 This patient is new to me today: No Emergency Visit: Yes ED Registration Date: 10/22/17 Care time: The patient presented to the Emergency Department on the above date and was hospitalized for further evaluation of their emergent condition. Critical Care patient: No - Discharge Referral Referred to [facility] Med P.C.: No
[2017-10-25] MEDS ORDERED: INSULIN (NOVOLOG) ASPART 100 UNITS/ML 10ML VIAL ONE (17:19)
[2017-10-25] MEDS ORDERED: INSULIN DETEMIR 100 UNITS/ML MDV SQ ONE (17:19)
[2017-10-30] MEDS ORDERED: ERGOCALCIFEROL (VITAMIN D2) 50,000 UNIT CAPSULE (FP) PO SCH (10:00)
== END 2017-10-25 18:29 | disposition home or self-care (01) | DRG 344 ==
LOC: JER 16:00 → JERBED 23:34 → UNDOADMIN 10-23 00:04 → JERBED 10-23 00:04 → J8W 10-23 03:20
PROVIDERS: ADMIT Internal Medicine; ATTEND Family Medicine
DX: E11.621 Type 2 diabetes mellitus with foot ulcer (principal); M86.671 Other chronic osteomyelitis, right ankle and foot; A52.16 Charcot's arthropathy (tabetic); E11.42 Type 2 diabetes mellitus with diabetic polyneuropathy; E11.65 Type 2 diabetes mellitus with hyperglycemia; Z79.4 Long term (current) use of insulin; I10 Essential (primary) hypertension; D57.3 Sickle-cell trait; K21.9 Gastro-esophageal reflux disease without esophagitis; F32.9 Major depressive disorder, single episode, unspecified; E66.9 Obesity, unspecified; Z68.35 Body mass index [BMI] 35.0-35.9, adult; B95.1 Streptococcus, group B, as the cause of diseases classified elsewhere; A49.01 Methicillin susceptible Staphylococcus aureus infection, unspecified site; D64.9 Anemia, unspecified
CPT/HCPCS: 36415; 71046-TC-FY; 73630-TC-RT-FY; 78315-TC; 80048; 80053; 81003; 82607; 82728; 82746; 82962; 83036; 83540; 83550; 84439; 84443; 84703; 85025; 85651; 86140; 87040; 87070; 87186; 87205; 93005; 93010; 99281-25; A9503; J1644; J1756

== ENCOUNTER 2017-11-21 19:00 | Emergency (ER) | payer OTHER ==
--- NOTE | 2017-11-21 19:06 | PDOC ---
Rapid Medical Evaluation Time Seen by Provider: 11/21/17 19:02 Medical Evaluation: Allergies Allergy/AdvReac Type Severity Reaction Status Date / Time No Known Allergies Allergy Verified 10/22/17 16:23 11/21/17 19:02 I have performed a brief in-person evaluation of this patient. The patient presents with a chief complaint of: medication refill. Patient reports running out of medication, have enough for today's dose. Denies symptoms of thirst, hunger and polyuria, chest pain or shortness of breath today. Pertinent physical exam findings: NAD unlabored breathing heart s1s2 I have ordered the following: The patient will proceed to the ED for further evaluation.
[2017-11-21 19:07] VITALS: BP 166/93; PULSE 100; TEMP 95.5; BMI 35.4
--- NOTE | 2017-11-21 19:53 | PDOC ---
History of Present Illness - General Chief Complaint: RX Refill Stated Complaint: PAIN Time Seen by Provider: 11/21/17 19:02 History Source: Patient Exam Limitations: No Limitations - History of Present Illness Initial Comments: 11/21/17 19:50 This 42-year-old female presents to the emergency room with complaints that she has no insurance that is active to see her primary physician however she is here seeking refills for her insulin. She is a diabetic. Past History - Past Medical History Allergies/Adverse Reactions: Allergies Allergy/AdvReac Type Severity Reaction Status Date / Time No Known Allergies Allergy Verified 10/22/17 16:23 Home Medications: Ambulatory Orders Insulin (Levemir) [Levemir Vial] 25 units SQ AM #5 syringe 11/21/17 Insulin Lispro [Humalog Kwikpen U-100] 10 unit SQ ACBK #5 insuln.pen 11/21/17 COPD: No Diabetes: Yes HTN: Yes - Immunization History Immunization Up to Date: Yes - Suicide/Smoking/Psychosocial Hx Smoking History: Never smoked Have you smoked in the past 12 months: No Information on smoking cessation initiated: No Hx Alcohol Use: No Drug/Substance Use Hx: No Substance Use Type: None Hx Substance Use Treatment: No Review of Systems - Review of Systems Able to Perform ROS?: Yes All Other Systems: Reviewed and Negative *Physical Exam - Vital Signs Last Vital Signs Temp Pulse Resp BP Pulse Ox 95.5 F L 100 H 20 166/93 100 11/21/17 19:04 11/21/17 19:04 11/21/17 19:04 11/21/17 19:04 11/21/17 19:04 - Physical Exam Comments: 11/21/17 19:51 General Appearance: This well appearing V/S: hemodynamically stable, afebrile Skin: WNL of pt's skin color, no signs of pallor, mottling, cyanosis Head:symmetrical Eyes: EOM's intact, PERRLA Ears: denies pain Nose: patent Throat: lips, teeth, gums, tongue, buccal mucos pink and moist Lungs: Chest symmetry equal. Cap refill <3 seconds. Lung sounds clear Cardiac: PMI at R 4MCL space, pos S1 and S2, regular rate. Abdomen: Soft, round, nontender : Not observed Muscularskeletal: Gait steady, ambulated in to ER, no edema +PMS Neuro: AAOx3, cognitively intact, speech clear and appropriate. Medical Decision Making - Medical Decision Making 11/21/17 19:51 Prescription refills *DC/Admit/Observation/Transfer Diagnosis at time of Disposition: Prescription refill - Discharge Dispostion Disposition: HOME Condition at time of disposition: Good Admit: No - Prescriptions Prescriptions: Insulin (Levemir) [Levemir Vial] 25 units SQ AM #5 syringe Insulin Lispro [Humalog Kwikpen U-100] 10 unit SQ ACBK #5 insuln.pen - Referrals Referrals: Angel Lopez MD [Primary Care Provider] - - Patient Instructions Printed Discharge Instructions: Taking Prescription Medications Additional Instructions: Contact her health insurance to see if it's been activated. I have submitted your prescriptions to your pharmacy of choice. - Post Discharge Activity
== END 2017-11-21 20:02 | disposition home or self-care (01) ==
LOC: JERFT 19:00 → JER 19:00 → JERFT 20:02
DX: Z76.0 Encounter for issue of repeat prescription (principal); E11.9 Type 2 diabetes mellitus without complications; Z79.4 Long term (current) use of insulin; I10 Essential (primary) hypertension
CPT/HCPCS: 99281-25

== ENCOUNTER 2017-12-19 12:37 | Inpatient (IN) | payer OTHER ==
[2017-12-19 12:51] VITALS: BMI 37.2
[2017-12-19] MEDS ORDERED: amLODIPine BESYLATE 5 MG TABLET (FP) PO ONE (13:27)
[2017-12-19] MEDS ORDERED: PIPERACILLIN/TAZOB 3.375 GM 3.375 GM in DEXTROSE 5%-WATER - 50 ML IVPB ONE (14:14)
[2017-12-19] MEDS ORDERED: VANCOMYCIN 1,000 MG in DEXTROSE 5%-WATER - 250 ML IVPB ONE (14:15)
[2017-12-19] MEDS ORDERED: VANCOMYCIN 1 GRAM (PRE-DOCKED) 1,000 MG/250 ML BAG IVPB ONE (14:30)
[2017-12-19] MEDS ORDERED: PIPERACILLIN/TAZOB 3.375 GM 3.375 GM/50 ML BAG IVPB ONE (14:30)
--- NOTE | 2017-12-19 14:32 | PDOC ---
History of Present Illness - General Chief Complaint: Wound Stated Complaint: RT FOOT INFECTION Time Seen by Provider: 12/19/17 13:26 History Source: Patient Exam Limitations: No Limitations - History of Present Illness Initial Comments: 12/19/17 14:34 42F with pmf of uncontrolled diabetes with chronic right foot plantar ulcer, HTN , bipolar disorder and schizophrenia present to the ED after visit to Dr. Le for wound care to be admitted for osteomyelitis workup. She was seen on 12/16/17 and found to have grade 3-4 wound right foot, + localized cellulitis, +mixed culture results, including staph aureus, S. Viridans and E. Faecalis. Patient has no complains. Past History - Past Medical History Allergies/Adverse Reactions: Allergies Allergy/AdvReac Type Severity Reaction Status Date / Time No Known Allergies Allergy Verified 12/19/17 12:48 COPD: No Diabetes: Yes (iddm) HTN: Yes - Immunization History Immunization Up to Date: Yes - Suicide/Smoking/Psychosocial Hx Smoking History: Never smoked Have you smoked in the past 12 months: No Information on smoking cessation initiated: No Hx Alcohol Use: No Drug/Substance Use Hx: No Substance Use Type: None Hx Substance Use Treatment: No *Physical Exam - Vital Signs Last Vital Signs Temp Pulse Resp BP Pulse Ox 98.6 F 95 H 18 188/103 100 12/19/17 12:48 12/19/17 12:48 12/19/17 12:48 12/19/17 12:48 12/19/17 12:48 - Physical Exam General Appearance: Yes: Nourished, Appropriately Dressed. No: Apparent Distress HEENT: positive: EOMI, JOHNNY, Normal ENT Inspection Neck: positive: Trachea midline, Normal Thyroid. negative: Tender Respiratory/Chest: positive: Lungs Clear, Normal Breath Sounds. negative: Chest Tender, Respiratory Distress Cardiovascular: positive: Regular Rhythm, Regular Rate, S1, S2 Gastrointestinal/Abdominal: positive: Normal Bowel Sounds, Flat, Soft. negative : Tender Integumentary: positive: Other ED Treatment Course - LABORATORY CBC & Chemistry Diagram: 12/19/17 14:50 12/19/17 14:50 - RADIOLOGY Radiology Studies Ordered: Category Date Time Status FOOT-RIGHT [RAD] Stat Radiology 12/19/17 14:18 Ordered - Medications Given in the ED: ED Medications Discontinued Medications Generic Name Dose Route Start Last Admin Trade Name Freq PRN Reason Stop Dose Admin Amlodipine Besylate 5 mg 12/19/17 13:27 12/19/17 13:39 Norvasc - PO 12/19/17 13:28 Not Given ONCE ONE Medical Decision Making - Medical Decision Making 12/19/17 15:03 42F with pmf of uncontrolled diabetes with chronic right foot plantar ulcer, HTN , bipolar disorder and schizophrenia present to the ED after visit to Dr. Le for wound care to be admitted for osteomyelitis workup. Basic labs, vanc-zosyn ordered, foot xray. Spoke to Dr. Lopez who accepted patient admission with consults from Dr. Tolentino and Dr. Le. *DC/Admit/Observation/Transfer Diagnosis at time of Disposition: Diabetic foot ulcer, Osteomyelitis, chronic - Discharge Dispostion Condition at time of disposition: Stable Admit: Yes - Referrals - Patient Instructions - Post Discharge Activity
[2017-12-19 15:00] LABS: BASO % 1.2 % (0-2.0); EOS % 0.9 % (0-4.5); HEMATOCRIT 35.9 % (32.4-45.2); HEMOGLOBIN 11.5 GM/dL (10.7-15.3); LYMPH % 40.6 % (8-40); MCHC 32.1 g/dl (32.0-36.0); MEAN CELL VOLUME 68.4 fl (80-96); MEAN PLT VOLUME 8.2 fl (7.5-11.1); MONO % 6.3 % (3.8-10.2); PLATELET COUNT 420 K/MM3 (134-434); RBC 5.25 M/mm3 (3.60-5.2); WHITE BLOOD COUNT 10.5 K/mm3 (4.0-10.0)
[2017-12-19 15:26] LABS: ALBUMIN 3.4 g/dl (3.4-5.0); ANION GAP 8 (8-16); BLOOD UREA NITROGEN 12 mg/dL (7-18); CALCIUM 8.9 mg/dL (8.5-10.1); CHLORIDE 105 mmol/L (98-107); CO2 28 mmol/L (21-32); CREATININE 0.9 mg/dL (0.55-1.02); SGPT/ALT 22 U/L (12-78); SODIUM 141 mmol/L (136-145)
[2017-12-19 15:31] LABS: ALK PHOS 167 U/L (45-117); BILIRUBIN,TOTAL 0.2 mg/dL (0.2-1.0)
--- NOTE | 2017-12-19 15:31 | PDOC ---
Attending Attestation - Resident Resident Name: Juan David Hamm - ED Attending Attestation I have performed the following: I have examined & evaluated the patient, The case was reviewed & discussed with the resident, I agree w/resident's findings & plan, Exceptions are as noted - HPI HPI: 12/19/17 15:18 42 yo F c/ hx HTN, DM sent in for right foot wound infection. Pt has had this chronic wound in the R sole foot. Seen by a foot surgeon for worsening wound and admission. Pt denies fevers, chills. Otherwise with no other complaints. - Physicial Exam PE: 12/19/17 15:50 GENERAL: Awake, alert, and fully oriented, in no acute distress. HEAD: No signs of trauma EYES: PERRLA, EOMI, sclera anicteric, conjunctiva clear ENT: Auricles normal inspection, hearing grossly normal, nares patent NECK: Normal ROM, supple LUNGS: Breath sounds equal, clear to auscultation bilaterally. No wheezes, and no crackles HEART: Regular rate and rhythm, normal S1 and S2, no murmurs, rubs or gallops ABDOMEN: Soft, nontender, normoactive bowel sounds. No guarding, no rebound. No masses EXTREMITIES: Normal range of motion, no edema. No clubbing or cyanosis. No cords, erythema, or tenderness NEUROLOGICAL: Cranial nerves II through XII grossly intact. Normal speech, normal gait SKIN: Warm, Dry. ~3x3 cm plantar foot wound with some mild cellulitis, no active drainage. Sensation intact throughout R foot. - Medical Decision Making 12/19/17 15:50 Vital Signs Temp Pulse Resp BP Pulse Ox 98.6 F 95 H 18 188/103 100 12/19/17 12:48 12/19/17 12:48 12/19/17 12:48 12/19/17 12:48 12/19/17 12:48 Pt with worsening R foot infection. Labs including blood cultures. IV antibiotics Admission
[2017-12-19 15:32] LABS: POTASSIUM 4.7 mmol/L (3.5-5.1); SGOT/AST 37 U/L (15-37)
[2017-12-19 15:33] LABS: GLUCOSE,RANDOM 42 mg/dL (74-106)
[2017-12-19] MEDS ORDERED: oxyCODONE HCL 5 MG TABLET PO PRN (17:21)
[2017-12-19] MEDS ORDERED: ACETAMINOPHEN 325 MG TABLET (FP) PO PRN (17:21)
[2017-12-19] MEDS ORDERED: DOCUSATE SODIUM 100 MG CAPSULE (FP) PO PRN (17:21)
--- NOTE | 2017-12-19 20:28 | HP ---
Admitting History and Physical - Primary Care Physician PCP: Angel Lopez - Admission Chief Complaint: SENT FROM WOUND CLINIC FOR WORSENING RIGHT FOOT INFECTION/ULCER History Source: Patient Limitations to Obtaining History: No Limitations - Past Medical History Cardiovascular: Yes: HTN Gastrointestinal: Yes: Constipation, GERD ...LMP: 11/03/18 ...: No Heme/Onc: No: Anemia, B12 Deficiency, Bleeding Disorder, Cancer, Current Chemotherapy, Current Radiation Therapy, Hemochromatosis, Hypercoaguable State, Myeloproliferative Synd, Sickle Cell Disease, Sickle Cell Trait, Thrombocytopenia, Other Psych: Yes: Addictions, Anxiety, Bipolar, Depression, Panic, Psychosis, Schizophrenia, Other Endocrine: Yes: Diabetes Mellitus - Past Surgical History Past Surgical History: Yes: - Smoking History Smoking history: Never smoked Have you smoked in the past 12 months: No - Alcohol/Substance Use Hx Alcohol Use: Yes (social) Home Medications - Allergies Allergies/Adverse Reactions: Allergies Allergy/AdvReac Type Severity Reaction Status Date / Time No Known Allergies Allergy Verified 12/19/17 12:48 - Home Medications Home Medications: Ambulatory Orders Citalopram Hydrobromide [Celexa -] 10 mg PO DAILY 12/19/17 Lisinopril [Prinivil] 20 mg PO BID 12/19/17 Review of Systems - Review of Systems Constitutional: reports: No Symptoms Eyes: reports: No Symptoms HENT: reports: No Symptoms Neck: reports: No Symptoms Cardiovascular: reports: No Symptoms Respiratory: reports: No Symptoms Gastrointestinal: reports: No Symptoms Genitourinary: reports: No Symptoms Musculoskeletal: reports: Joint Swelling Integumentary: reports: Other Neurological: reports: Pre-Existing Deficit, Unsteady Gait Endocrine: reports: Other Hematology/Lymphatic: reports: No Symptoms Psychiatric: reports: Anxiety, Other Physical Examination Vital Signs: Vital Signs Temperature 98.7 F 12/19/17 18:06 Pulse Rate 97 H 12/19/17 18:06 Respiratory Rate 20 12/19/17 18:06 Blood Pressure 150/83 12/19/17 18:06 O2 Sat by Pulse Oximetry (%) 100 12/19/17 18:37 Constitutional: Yes: Mild Distress Eyes: Yes: WNL HENT: Yes: WNL Neck: Yes: WNL Cardiovascular: Yes: WNL Respiratory: Yes: WNL Gastrointestinal: Yes: WNL Renal/: Yes: WNL Musculoskeletal: Yes: Muscle Weakness Extremities: Yes: Deformity, Other Edema: Yes Peripheral Pulses WNL: Yes Integumentary: Yes: Pressure Ulcer, Other Wound/Incision: Yes: Open to air, Draining, Reddened, Excoriated Neurological: Yes: Loss of Sensation, Paresthesia, Pre-Existing Deficit, Unsteady Gait, Other ...Motor Strength: RLE Psychiatric: Yes: Other Labs: CBC, BMP 12/19/17 14:50 12/19/17 14:50 Problem List - Problems (1) Diabetic foot ulcer Code(s): E11.621 - TYPE 2 DIABETES MELLITUS WITH FOOT ULCER; L97.509 - NON- PRESSURE CHRONIC ULCER OTH PRT UNSP FOOT W UNSP SEVERITY Qualifiers: (2) Osteomyelitis, chronic Code(s): M86.60 - OTHER CHRONIC OSTEOMYELITIS, UNSPECIFIED SITE (3) Depression Code(s): F32.9 - MAJOR DEPRESSIVE DISORDER, SINGLE EPISODE, UNSPECIFIED (4) Hypertension Code(s): I10 - ESSENTIAL (PRIMARY) HYPERTENSION (5) Obesity (BMI 30-39.9) Code(s): E66.9 - OBESITY, UNSPECIFIED (6) Type 2 diabetes mellitus with diabetic nephropathy Code(s): E11.21 - TYPE 2 DIABETES MELLITUS WITH DIABETIC NEPHROPATHY Qualifiers: (7) Uncontrolled type 2 diabetes mellitus Code(s): E11.65 - TYPE 2 DIABETES MELLITUS WITH HYPERGLYCEMIA Assessment/Plan IV ABX ID CONSULT WOUND CARE BGM SSI DVT PROPHYLAXIS
[2017-12-19] MEDS: RANITIDINE HCL 150 MG TABLET (FP) PO SCH (21:14)
[2017-12-19] MEDS: INSULIN (LEVEMIR) 100 UNITS/ML UNITS SQ SCH (21:14)
[2017-12-19] MEDS: PREGABALIN 50 MG CAPSULE PO SCH (21:14)
[2017-12-19] MEDS: HEPARIN NA (PORCINE) 5,000 UNITS/ML 1ML VIAL SQ SCH (21:14)
[2017-12-19] MEDS ORDERED: INSULIN (NOVOLOG) ASPART 100 UNITS/ML 10ML VIAL ONE (21:17)
[2017-12-19] MEDS: INSULIN SLIDING SCALE (NOVOLOG) 1 VIAL SQ SCH (21:18)
[2017-12-19] MEDS ORDERED: INSULIN SLIDING SCALE (NOVOLOG) 1 VIAL SQ SCH (22:00)
[2017-12-20 04:54] LABS: HCG,QUALITATIVE URINE NEGATIVE; URINE APPEARANCE CLEAR; URINE BILIRUBIN NEGATIVE (<2.0 mg/dL); URINE BLOOD NEGATIVE (NEGATIVE); URINE COLOR STRAW; URINE GLUCOSE (UA) 3+ (NEGATIVE); URINE KETONE NEGATIVE (NEGATIVE); URINE LEUK ESTERASE NEGATIVE (NEGATIVE); URINE NITRITE NEGATIVE (NEGATIVE); URINE PROTEIN NEGATIVE (NEGATIVE); URINE UROBILINOGEN NEGATIVE mg/dL (0.2-1.0)
[2017-12-20 05:19] LABS: URINE APPEARANCE CLEAR; URINE BILIRUBIN NEGATIVE (<2.0 mg/dL); URINE BLOOD NEGATIVE (NEGATIVE); URINE COLOR STRAW; URINE GLUCOSE (UA) 3+ (NEGATIVE); URINE KETONE NEGATIVE (NEGATIVE); URINE LEUK ESTERASE NEGATIVE (NEGATIVE); URINE NITRITE NEGATIVE (NEGATIVE); URINE PROTEIN NEGATIVE (NEGATIVE); URINE UROBILINOGEN NEGATIVE mg/dL (0.2-1.0)
[2017-12-20] MEDS: PREGABALIN 50 MG CAPSULE PO SCH ×3 (06:15→21:35)
[2017-12-20] MEDS: INSULIN SLIDING SCALE (NOVOLOG) 1 VIAL SQ SCH ×4 (06:15→21:58)
[2017-12-20 07:08] LABS: HEMATOCRIT 33.2 % (32.4-45.2); HEMOGLOBIN 10.6 GM/dL (10.7-15.3); MCH 21.8 pg (25.7-33.7); MCHC 31.9 g/dl (32.0-36.0); MEAN CELL VOLUME 68.2 fl (80-96); MEAN PLT VOLUME 8.3 fl (7.5-11.1); PLATELET COUNT 349 K/MM3 (134-434); RBC 4.87 M/mm3 (3.60-5.2); RDW 20.4 % (11.6-15.6); WHITE BLOOD COUNT 7.3 K/mm3 (4.0-10.0)
[2017-12-20 07:33] LABS: ALBUMIN 2.8 g/dl (3.4-5.0); ALK PHOS 138 U/L (45-117); ANION GAP 6 (8-16); BILIRUBIN,TOTAL 0.2 mg/dL (0.2-1.0); BLOOD UREA NITROGEN 14 mg/dL (7-18); CALCIUM 8.4 mg/dL (8.5-10.1); CHLORIDE 109 mmol/L (98-107); CHOLESTEROL 189 mg/dL (50-200); CO2 26 mmol/L (21-32); CREATININE 0.7 mg/dL (0.55-1.02); GLUCOSE,RANDOM 99 mg/dL (74-106); HDL CHOLESTEROL 55 mg/dL (40-60); POTASSIUM 4.7 mmol/L (3.5-5.1); SGOT/AST 16 U/L (15-37); SGPT/ALT 15 U/L (12-78); SODIUM 141 mmol/L (136-145); TOT PROT 6.3 g/dl (6.4-8.2); TRIGLYCERIDES 153 mg/dL (35-160)
[2017-12-20] MEDS ORDERED: INSULIN (NOVOLOG) ASPART 100 UNITS/ML 10ML VIAL ONE ×4 (08:15→21:14)
--- NOTE | 2017-12-20 08:32 | CONSULT ---
Consult - text type - Consultation Consultation Note: Patient known to me from wound care clinic. Patient very non compliant as has been spoken too at length multiple times to advise her as to damage being done. Was sent to ER on Friday did not arrive till Friday evening. Has had multiple non compliant encounters in wound care. Presents today with chronic wound right foot. vsgi, ns decreased b/l, +grade 2-3 wound right foot, -mal odor, -tender, +edema , +discolored, [id number]=58.2, om? grade 2-3 wound charcot foot ID consulted. Vascular consult. Endocrine consult. MRI to be done. xray reviewed. Santyl dressing change daily. Will work up for OM. HBO consult.
[2017-12-20] MEDS: VALSARTAN 160 MG TABLET (UD) PO SCH (09:19)
[2017-12-20] MEDS: HEPARIN NA (PORCINE) 5,000 UNITS/ML 1ML VIAL SQ SCH ×2 (09:19→21:36)
[2017-12-20] MEDS: RANITIDINE HCL 150 MG TABLET (FP) PO SCH ×2 (09:19→21:35)
[2017-12-20] MEDS: CITALOPRAM HYDROBROMIDE 10 MG TABLET (FP) PO SCH (09:19)
--- NOTE | 2017-12-20 11:23 | PN ---
Progress Note (short form) - Note Progress Note: ID consult dictated imp/reccd poorly controlled diabetic with chronic plantar foot ulcer treated in June for osteomyelitis with rocephin for 6 weeks was recently hospitalized in October for cellulitis, discharged off antibiotics intermittent f/u in wound care advised to go to ED as plantar ulcer was worsening no fever or chills no erythema, no drainage chronic plantar ulcer r/o osteomyelitis resume ceftriaxone for MRI esr/crp Problem List - Problems (1) Diabetic foot ulcer Code(s): E11.621 - TYPE 2 DIABETES MELLITUS WITH FOOT ULCER; L97.509 - NON- PRESSURE CHRONIC ULCER OTH PRT UNSP FOOT W UNSP SEVERITY Qualifiers: (2) Osteomyelitis, chronic Code(s): M86.60 - OTHER CHRONIC OSTEOMYELITIS, UNSPECIFIED SITE (3) Uncontrolled type 2 diabetes mellitus Code(s): E11.65 - TYPE 2 DIABETES MELLITUS WITH HYPERGLYCEMIA
[2017-12-20] MEDS ORDERED: DEXTROSE 5%-WATER 100 ML IVPB ONE (12:47)
--- NOTE | 2017-12-20 12:59 | CONS ---
INFECTIOUS DISEASE CONSULTATION DATE OF CONSULTATION: DATE OF DICTATION: 12/20/2017 REQUESTING PHYSICIAN: Angel Lopez MD This is a 42-year-old female admitted with a chronic worsening plantar foot ulcer. She was originally treated in June for osteomyelitis with eight weeks of Rocephin. She was recently hospitalized in October for cellulitis, discharged off antibiotics. She has had intermittent followup in the wound care. She has very poorly controlled diabetes. She was advised by Podiatry to go to the ER as the plantar ulcer was worsening. She denies any fevers or chills, otherwise feels well. PAST MEDICAL HISTORY: Notable for a history of diabetes, hypertension, Charcot foot, chronic ulcer with osteomyelitis. She has a history of bipolar disorder and schizophrenia. She has been diabetic she tells me for a very long time. ALLERGIES: She has no known drug allergies. MEDICATIONS AN OUTPATIENT: Include lisinopril and Celexa. FAMILY HISTORY: Noncontributory. SOCIAL HISTORY: There is no history of any cigarette use; social alcohol use. She lives at home with her family and children. She is not working at this time. There is no history of any travel. REVIEW OF SYSTEMS: She otherwise feels well. She really does not note any pain on her foot. She has noticed minimal swelling and some erythema. She has had no fevers. PHYSICAL EXAMINATION: Vital Signs: Temperature is 98.3, pulse of 86. Blood pressure is 138/75. Respiratory rate is 20. She is saturating 100%. HEENT: She is normocephalic. Her eyes are anicteric. Neck: Supple. Lungs: Clear to auscultation. Heart: regular rate and rhythm. Abdomen: Soft, nontender. Extremities: Notable for some minimal swelling of her right foot. She has a chronic ulcer with a large hyperkeratotic area and no drainage or erythema noted at the bottom of her right foot. LABORATORY DATA: Her labs are notable on admission. Her white count was 10.5. Today, it is 7.3. Hemoglobin is 10.6. Platelets are 349. BUN is 14 and creatinine 0.7. Her hemoglobin A1c is 11.2. Urinalysis has 3+ glucose, and cultures are pending. Her last plantar foot culture grew a Staphylococcus aureus and an enterococcus. She received vancomycin and Zosyn in the emergency room. In summary, this is a 42-year-old woman admitted for worsening plantar foot ulcer. It is unclear whether this is due to infection or worsening Charcot foot. MRI has been ordered by Podiatry. She will be treated with ceftriaxone for a possible associated cellulitis while we wait for the results. Would obtain a sedimentation rate and CRP as well. Further recommendations to follow. Narda AMBRIZ/[id number] MTDD
[2017-12-20] MEDS: COLLAGENASE CLOSTRIDIUM HIST. 30 GRAMS TUBE TP SCH (13:41)
[2017-12-20] MEDS: CEFTRIAXONE 2 GM in DEXTROSE 5%-WATER 100 ML IVPB SCH (13:41)
--- NOTE | 2017-12-20 16:40 | PN ---
Progress Note, Physician Chief Complaint: AWAKE ALERT DENIES FEVER OR CHILLS - Current Medication List Current Medications: Active Medications Acetaminophen (Tylenol -) 650 mg PO Q6H PRN PRN Reason: PAIN LEVEL 1-5 Citalopram Hydrobromide (Celexa -) 10 mg PO DAILY [facility] Last Admin: 12/20/17 09:19 Dose: 10 mg Collagenase (Santyl -) 1 applic TP DAILY [facility] Last Admin: 12/20/17 13:41 Dose: 1 applic Docusate Sodium (Colace -) 100 mg PO BID PRN PRN Reason: CONSTIPATION Ergocalciferol (Drisdol -) 50,000 unit PO Q7D@1000 NILO Heparin Sodium (Porcine) (Heparin -) 5,000 unit SQ BID [facility] Last Admin: 12/20/17 09:19 Dose: 5,000 unit Ceftriaxone Sodium 2 gm/ (Dextrose) 100 mls @ 200 mls/hr IVPB DAILY [facility] PRN Reason: Protocol Last Admin: 12/20/17 13:41 Dose: 200 mls/hr Insulin Aspart (Novolog Vial Sliding Scale -) 1 vial SQ ACHS [facility] PRN Reason: Protocol Last Admin: 12/20/17 16:20 Dose: 4 units Insulin Detemir (Levemir Vial) 25 units SQ HS [facility] Last Admin: 12/19/17 21:14 Dose: 25 units Oxycodone HCl (Roxicodone -) 5 mg PO Q6H PRN PRN Reason: PAIN LEVEL 6-10 Pregabalin (Lyrica -) 50 mg PO TID [facility] Last Admin: 12/20/17 13:41 Dose: 50 mg Ranitidine HCl (Zantac -) 150 mg PO BID [facility] Last Admin: 12/20/17 09:19 Dose: 150 mg Valsartan (Diovan -) 160 mg PO DAILY [facility] Last Admin: 12/20/17 09:19 Dose: 160 mg - Objective Vital Signs: Vital Signs Temperature 98.8 F 12/20/17 14:34 Pulse Rate 91 H 12/20/17 14:34 Respiratory Rate 20 12/20/17 14:34 Blood Pressure 154/90 12/20/17 14:34 O2 Sat by Pulse Oximetry (%) 100 12/20/17 08:54 Constitutional: Yes: Mild Distress Eyes: Yes: WNL HENT: Yes: WNL Neck: Yes: WNL Cardiovascular: Yes: WNL Respiratory: Yes: WNL Gastrointestinal: Yes: WNL Genitourinary: Yes: WNL Musculoskeletal: Yes: WNL Extremities: Yes: Deformity Edema: Yes Peripheral Pulses WNL: Yes Integumentary: Yes: Pressure Ulcer, Other Wound/Incision: Yes: Dressing Dry and Intact Neurological: Yes: Pre-Existing Deficit ...Motor Strength: LLE, RLE Psychiatric: Yes: Other Labs: CBC, BMP 12/20/17 06:45 12/20/17 06:45 Problem List - Problems (1) Diabetic foot ulcer Code(s): E11.621 - TYPE 2 DIABETES MELLITUS WITH FOOT ULCER; L97.509 - NON- PRESSURE CHRONIC ULCER OTH PRT UNSP FOOT W UNSP SEVERITY Qualifiers: (2) Osteomyelitis, chronic Code(s): M86.60 - OTHER CHRONIC OSTEOMYELITIS, UNSPECIFIED SITE (3) Depression Code(s): F32.9 - MAJOR DEPRESSIVE DISORDER, SINGLE EPISODE, UNSPECIFIED (4) Hypertension Code(s): I10 - ESSENTIAL (PRIMARY) HYPERTENSION (5) Obesity (BMI 30-39.9) Code(s): E66.9 - OBESITY, UNSPECIFIED (6) Type 2 diabetes mellitus with diabetic nephropathy Code(s): E11.21 - TYPE 2 DIABETES MELLITUS WITH DIABETIC NEPHROPATHY Qualifiers: (7) Uncontrolled type 2 diabetes mellitus Code(s): E11.65 - TYPE 2 DIABETES MELLITUS WITH HYPERGLYCEMIA Assessment/Plan IV ABX ID CONSULT WOUND CARE BGM SSI DVT PROPHYLAXIS MRI FOOT R/O OSTEOMYELITIS COMPLIANCE TO DIET AND MEDS DIETARY CONSULT
[2017-12-20] MEDS: INSULIN (LEVEMIR) 100 UNITS/ML UNITS SQ SCH (21:58)
--- NOTE | 2017-12-21 01:27 | CONSULT ---
Consult Consult Specialty:: endocrine Referred by:: dr.stepanian stephen Reason for Consultation:: diabetes mellitus uncontrolled - History of Present Illness Chief Complaint: high blood sugars History of Present Illness: 42F with pmf of uncontrolled diabetes with chronic right foot plantar ulcer, HTN , bipolar disorder present to the ED after visit to Dr. Le for wound care to be admitted for osteomyelitis of right foot,weakness high sugars,has had frequent urination and thirst,blurred vision for last several weeks has not been taking correct insulin doses - History Source History Provided By: Patient - Past Medical History Cardio/Vascular: Yes: HTN Gastrointestinal: Yes: Constipation, GERD ...LMP: 11/03/18 ...: No Psych: Yes: Addictions, Anxiety, Bipolar, Depression, Panic, Psychosis, Schizophrenia, Other Endocrine: Yes: Diabetes Mellitus - Past Surgical History Past Surgical History: Yes: - Alcohol/Substance Use Hx Alcohol Use: Yes (social) - Smoking History Smoking history: Never smoked Have you smoked in the past 12 months: No Home Medications - Allergies Allergies/Adverse Reactions: Allergies Allergy/AdvReac Type Severity Reaction Status Date / Time No Known Allergies Allergy Verified 12/19/17 12:48 - Home Medications Home Medications: Ambulatory Orders Citalopram Hydrobromide [Celexa -] 10 mg PO DAILY 12/19/17 Lisinopril [Prinivil] 20 mg PO BID 12/19/17 Review of Systems - Review of Systems Constitutional: reports: Lethargy, Weakness Eyes: reports: Blurred Vision HENT: reports: No Symptoms Neck: reports: No Symptoms Cardiovascular: reports: Shortness of Breath Respiratory: reports: Exercise Intolerance, SOB on Exertion Gastrointestinal: reports: Bloating, Constipation Genitourinary: reports: Frequency Breasts: reports: No Symptoms Reported Musculoskeletal: reports: Muscle Pain, Muscle Cramps, Muscle Weakness Integumentary: reports: No Symptoms Neurological: reports: Numbness, Weakness Endocrine: reports: Unexplained Weight Loss Psychiatric: reports: Altered Sleep Pattern, Anxiety Physical Exam Vital Signs: Vital Signs Temperature 98.6 F 12/20/17 17:56 Pulse Rate 80 12/20/17 22:19 Respiratory Rate 20 12/20/17 22:19 Blood Pressure 160/80 12/20/17 22:19 O2 Sat by Pulse Oximetry (%) 100 12/20/17 21:00 Constitutional: Yes: Anxious Eyes: Yes: EOM Intact HENT: Yes: Normocephalic Neck: Yes: Trachea Midline Cardiovascular: Yes: Regular Rate and Rhythm Respiratory: Yes: CTA Bilaterally Gastrointestinal: Yes: Normal Bowel Sounds ...Rectal Exam: Yes: Deferred Renal/: Yes: WNL Musculoskeletal: Yes: WNL Extremities: Yes: Delayed Capillary Refill Edema: No Integumentary: Yes: Onychomycosis Wound/Incision: Yes: Dressing Dry and Intact Neurological: Yes: Alert, Oriented Labs: CBC, BMP 12/20/17 06:45 12/20/17 06:45 Problem List - Problems (1) Diabetic foot ulcer Code(s): E11.621 - TYPE 2 DIABETES MELLITUS WITH FOOT ULCER; L97.509 - NON- PRESSURE CHRONIC ULCER OTH PRT UNSP FOOT W UNSP SEVERITY Qualifiers: (2) Osteomyelitis, chronic Code(s): M86.60 - OTHER CHRONIC OSTEOMYELITIS, UNSPECIFIED SITE (3) Depression Code(s): F32.9 - MAJOR DEPRESSIVE DISORDER, SINGLE EPISODE, UNSPECIFIED (4) Hypertension Code(s): I10 - ESSENTIAL (PRIMARY) HYPERTENSION (5) Type 2 diabetes mellitus with diabetic nephropathy Code(s): E11.21 - TYPE 2 DIABETES MELLITUS WITH DIABETIC NEPHROPATHY Qualifiers: Diabetes mellitus senior living insulin use: without intermediate project manager use Qualified Code(s): E11.21 - Type 2 diabetes mellitus with diabetic nephropathy Assessment/Plan Current Active Problems Diabetic foot ulcer (Chronic) Osteomyelitis, chronic (Chronic) diabetes mellitus ckd diabetic neuropathy htn hyperlipidemia Abnormal Lab Results 12/20/17 12/20/17 12/20/17 03:50 03:50 06:45 Hgb 10.6 L MCV 68.2 L MCH 21.8 L MCHC 31.9 L RDW 20.4 H Chloride Anion Gap Hemoglobin A1c % Calcium Alkaline Phosphatase Total Protein Albumin Total LDL Cholesterol Urine Glucose (UA) 3+ H 3+ H 12/20/17 12/20/17 06:45 06:45 Hgb MCV MCH MCHC RDW Chloride 109 H Anion Gap 6 L Hemoglobin A1c % 11.2 H Calcium 8.4 L Alkaline Phosphatase 138 H Total Protein 6.3 L Albumin 2.8 L Total LDL Cholesterol 118 H Urine Glucose (UA) Laboratory Results - last 24 hr 12/20/17 12/20/17 12/20/17 03:50 03:50 06:14 WBC RBC Hgb Hct MCV MCH MCHC RDW Plt Count MPV Sodium Potassium Chloride Carbon Dioxide Anion Gap BUN Creatinine Creat Clearance w eGFR POC Glucometer 95 Random Glucose Hemoglobin A1c % Calcium Total Bilirubin AST ALT Alkaline Phosphatase Total Protein Albumin Triglycerides Cholesterol Total LDL Cholesterol HDL Cholesterol Urine Color Straw Straw Urine Appearance Clear Clear Urine pH 6.0 6.0 Ur Specific [place] 1.015 1.015 Urine Protein Negative Negative Urine Glucose (UA) 3+ H 3+ H Urine Ketones Negative Negative Urine Blood Negative Negative Urine Nitrite Negative Negative Urine Bilirubin Negative Negative Urine Urobilinogen Negative Negative Ur Leukocyte Esterase Negative Negative Urine HCG, Qual Negative 12/20/17 12/20/17 12/20/17 06:45 06:45 06:45 WBC 7.3 D RBC 4.87 Hgb 10.6 L Hct 33.2 MCV 68.2 L MCH 21.8 L MCHC 31.9 L RDW 20.4 H Plt Count 349 MPV 8.3 Sodium 141 Potassium 4.7 Chloride 109 H Carbon Dioxide 26 Anion Gap 6 L BUN 14 Creatinine 0.7 Creat Clearance w eGFR > 60 POC Glucometer Random Glucose 99 Hemoglobin A1c % 11.2 H Calcium 8.4 L Total Bilirubin 0.2 AST 16 ALT 15 Alkaline Phosphatase 138 H Total Protein 6.3 L Albumin 2.8 L Triglycerides 153 Cholesterol 189 Total LDL Cholesterol 118 H HDL Cholesterol 55 Urine Color Urine Appearance Urine pH Ur Specific [place] Urine Protein Urine Glucose (UA) Urine Ketones Urine Blood Urine Nitrite Urine Bilirubin Urine Urobilinogen Ur Leukocyte Esterase Urine HCG, Qual 12/20/17 12/20/17 11:04 16:13 WBC RBC Hgb Hct MCV MCH MCHC RDW Plt Count MPV Sodium Potassium Chloride Carbon Dioxide Anion Gap BUN Creatinine Creat Clearance w eGFR POC Glucometer 308 247 Random Glucose Hemoglobin A1c % Calcium Total Bilirubin AST ALT Alkaline Phosphatase Total Protein Albumin Triglycerides Cholesterol Total LDL Cholesterol HDL Cholesterol Urine Color Urine Appearance Urine pH Ur Specific [place] Urine Protein Urine Glucose (UA) Urine Ketones Urine Blood Urine Nitrite Urine Bilirubin Urine Urobilinogen Ur Leukocyte Esterase Urine HCG, Qual ) plan: bgm qid novolog insulin doses levemir 20 units am levemir 10 units hs diet nutrition advice close follow up outpatient
[2017-12-21] MEDS: INSULIN (LEVEMIR) 100 UNITS/ML UNITS SQ SCH (06:06)
[2017-12-21] MEDS: INSULIN SLIDING SCALE (NOVOLOG) 1 VIAL SQ SCH ×4 (06:06→22:04)
[2017-12-21] MEDS: PREGABALIN 50 MG CAPSULE PO SCH ×3 (06:06→22:04)
[2017-12-21] MEDS ORDERED: DEXTROSE 5%-WATER 100 ML IVPB ONE (09:36)
[2017-12-21] MEDS: HEPARIN NA (PORCINE) 5,000 UNITS/ML 1ML VIAL SQ SCH ×2 (09:39→22:04)
[2017-12-21] MEDS: CITALOPRAM HYDROBROMIDE 10 MG TABLET (FP) PO SCH (09:39)
[2017-12-21] MEDS: RANITIDINE HCL 150 MG TABLET (FP) PO SCH ×2 (09:39→22:04)
[2017-12-21] MEDS: VALSARTAN 160 MG TABLET (UD) PO SCH (09:39)
[2017-12-21] MEDS: CEFTRIAXONE 2 GM in DEXTROSE 5%-WATER 100 ML IVPB SCH (09:56)
--- NOTE | 2017-12-21 13:41 | PN ---
Progress Note, Physician Chief Complaint: MRI OF FOOT COMPLETE AWAIT REPORT C/O DIARRHEA - Current Medication List Current Medications: Active Medications Acetaminophen (Tylenol -) 650 mg PO Q6H PRN PRN Reason: PAIN LEVEL 1-5 Citalopram Hydrobromide (Celexa -) 10 mg PO DAILY [facility] Last Admin: 12/21/17 09:39 Dose: 10 mg Collagenase (Santyl -) 1 applic TP DAILY [facility] Last Admin: 12/20/17 13:41 Dose: 1 applic Docusate Sodium (Colace -) 100 mg PO BID PRN PRN Reason: CONSTIPATION Ergocalciferol (Drisdol -) 50,000 unit PO Q7D@1000 NILO Heparin Sodium (Porcine) (Heparin -) 5,000 unit SQ BID [facility] Last Admin: 12/21/17 09:39 Dose: 5,000 unit Ceftriaxone Sodium 2 gm/ (Dextrose) 100 mls @ 200 mls/hr IVPB DAILY [facility] PRN Reason: Protocol Last Admin: 12/21/17 09:56 Dose: 200 mls/hr Insulin Aspart (Novolog Vial Sliding Scale -) 1 vial SQ ACHS [facility] PRN Reason: Protocol Last Admin: 12/21/17 11:40 Dose: 6 units Insulin Detemir (Levemir Vial) 20 units SQ AM [facility] Last Admin: 12/21/17 06:06 Dose: 20 units Insulin Detemir (Levemir Vial) 10 units SQ HS [facility] Oxycodone HCl (Roxicodone -) 5 mg PO Q6H PRN PRN Reason: PAIN LEVEL 6-10 Pregabalin (Lyrica -) 50 mg PO TID [facility] Last Admin: 12/21/17 06:06 Dose: 50 mg Ranitidine HCl (Zantac -) 150 mg PO BID [facility] Last Admin: 12/21/17 09:39 Dose: 150 mg Valsartan (Diovan -) 160 mg PO DAILY [facility] Last Admin: 12/21/17 09:39 Dose: 160 mg - Objective Vital Signs: Vital Signs Temperature 98.1 F 12/21/17 09:35 Pulse Rate 82 12/21/17 09:35 Respiratory Rate 18 12/21/17 09:35 Blood Pressure 130/88 12/21/17 09:35 O2 Sat by Pulse Oximetry (%) 100 12/20/17 21:00 Constitutional: Yes: Mild Distress Eyes: Yes: WNL HENT: Yes: WNL Neck: Yes: WNL Cardiovascular: Yes: WNL Respiratory: Yes: WNL Gastrointestinal: Yes: WNL Genitourinary: Yes: WNL Musculoskeletal: Yes: Other Extremities: Yes: Deformity Edema: Yes Peripheral Pulses WNL: Yes Integumentary: Yes: Pressure Ulcer Wound/Incision: Yes: Dressing Dry and Intact, Excoriated Neurological: Yes: Other ...Motor Strength: LLE, RLE Psychiatric: Yes: WNL Labs: CBC, BMP 12/20/17 06:45 12/20/17 06:45 Problem List - Problems (1) Diabetic foot ulcer Code(s): E11.621 - TYPE 2 DIABETES MELLITUS WITH FOOT ULCER; L97.509 - NON- PRESSURE CHRONIC ULCER OTH PRT UNSP FOOT W UNSP SEVERITY Qualifiers: (2) Osteomyelitis, chronic Code(s): M86.60 - OTHER CHRONIC OSTEOMYELITIS, UNSPECIFIED SITE (3) Depression Code(s): F32.9 - MAJOR DEPRESSIVE DISORDER, SINGLE EPISODE, UNSPECIFIED (4) Hypertension Code(s): I10 - ESSENTIAL (PRIMARY) HYPERTENSION (5) Obesity (BMI 30-39.9) Code(s): E66.9 - OBESITY, UNSPECIFIED (6) Type 2 diabetes mellitus with diabetic nephropathy Code(s): E11.21 - TYPE 2 DIABETES MELLITUS WITH DIABETIC NEPHROPATHY Qualifiers: Diabetes mellitus manager intermediate insulin use: without manager intermediate use Qualified Code(s): E11.21 - Type 2 diabetes mellitus with diabetic nephropathy (7) Uncontrolled type 2 diabetes mellitus Code(s): E11.65 - TYPE 2 DIABETES MELLITUS WITH HYPERGLYCEMIA Assessment/Plan MRI FOOT PENDING REPORT SEND STOOL FOR CDIFF BACID STARTED ID F/U APPRECIATED VASC SX FOR EVAL
[2017-12-21] MEDS: COLLAGENASE CLOSTRIDIUM HIST. 30 GRAMS TUBE TP SCH (18:20)
[2017-12-21] MEDS ORDERED: INSULIN (LEVEMIR) 100 UNITS/ML UNITS SQ SCH (22:00)
[2017-12-22] MEDS: PREGABALIN 50 MG CAPSULE PO SCH ×2 (06:20→15:48)
[2017-12-22] MEDS: INSULIN (LEVEMIR) 100 UNITS/ML UNITS SQ SCH (06:20)
[2017-12-22] MEDS: INSULIN SLIDING SCALE (NOVOLOG) 1 VIAL SQ SCH ×3 (06:20→17:49)
[2017-12-22] MEDS ORDERED: PT OWN MED DRAWER 7, Y5N ONE (09:49)
[2017-12-22] MEDS ORDERED: DEXTROSE 5%-WATER 100 ML IVPB ONE (09:50)
[2017-12-22] MEDS: COLLAGENASE CLOSTRIDIUM HIST. 30 GRAMS TUBE TP SCH (09:55)
[2017-12-22] MEDS: VALSARTAN 160 MG TABLET (UD) PO SCH (09:55)
[2017-12-22] MEDS: CITALOPRAM HYDROBROMIDE 10 MG TABLET (FP) PO SCH (09:55)
[2017-12-22] MEDS: HEPARIN NA (PORCINE) 5,000 UNITS/ML 1ML VIAL SQ SCH (09:55)
[2017-12-22] MEDS: RANITIDINE HCL 150 MG TABLET (FP) PO SCH (09:55)
[2017-12-22] MEDS: CEFTRIAXONE 2 GM in DEXTROSE 5%-WATER 100 ML IVPB SCH (09:56)
--- NOTE | 2017-12-22 10:20 | PN ---
Progress Note (short form) - Note Progress Note: Patient seen in bed. VSS Tmax 98.1 +granulating wound has decreased in size to about dime size witha depth of .2cm , -cellulitis, -erythema, +grade 2-3 wound plantar right foot, -drainage, wbc= 7.3, crp 1.1, mri inconclusive Om? Ivabx as per ID. continue santyl dressing changes. Offloading right foot will use knee roller and or tcc ez cast. can follow up in wound care this . Will follow till dc. Patient may qualify for graft.
--- NOTE | 2017-12-22 12:44 | PN ---
Progress Note (short form) - Note Progress Note: reports foot feels good ulcer is dry Vital Signs Period Temp Pulse Resp BP Sys/[place] Pulse Ox Last 24 Hr 98 F-99.5 F 81-106 18-20 130-147/70-89 98 cor-rrr lungs clear abd soft,nt ext plantar ulcer no erythema, no drainage, shallow, dry CBC, BMP 12/20/17 06:45 12/20/17 06:45 Laboratory Tests 07/10/17 07/10/17 12/21/17 19:45 19:45 06:35 ESR 72 H 23 H C-Reactive Protein 10.5 H 12/21/17 10:35 ESR C-Reactive Protein 1.1 H MRI-+charcot foot, no osteo-reviewed with radiology Microbiology 12/20/17 13:30 Foot - Right Plantar Gram Stain - Final 12/20/17 13:30 Foot - Right Plantar Wound Culture - Final Mr S Aureus Diphtheroid/Corynebacterium 12/19/17 14:50 Blood - Peripheral Venous Blood Culture - Preliminary NO GROWTH OBTAINED AFTER 48 HOURS, INCUBATION TO CONTINUE FOR 3 DAYS. 12/19/17 14:50 Blood - Peripheral Venous Blood Culture - Preliminary NO GROWTH OBTAINED AFTER 48 HOURS, INCUBATION TO CONTINUE FOR 3 DAYS. 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-gets worse with ambulation also very poor diabetic control no purulence wound is shallow and clean MRI no osteo inflammatory markers normal suggest d/c rocephin topical mupirocin f/u wound care with podiatry d/w chain splitter Problem List - Problems (1) Diabetic foot ulcer Code(s): E11.621 - TYPE 2 DIABETES MELLITUS WITH FOOT ULCER; L97.509 - NON- PRESSURE CHRONIC ULCER OTH PRT UNSP FOOT W UNSP SEVERITY Qualifiers: (2) Osteomyelitis, chronic Code(s): M86.60 - OTHER CHRONIC OSTEOMYELITIS, UNSPECIFIED SITE (3) Uncontrolled type 2 diabetes mellitus Code(s): E11.65 - TYPE 2 DIABETES MELLITUS WITH HYPERGLYCEMIA
[2017-12-22] MEDS ORDERED: MUPIROCIN CA 2% TOPICAL CREAM 15 GM TUBE TP SCH (13:15)
[2017-12-22 14:48] VITALS: BP 161/93; PULSE 87; TEMP 98.2
--- NOTE | 2017-12-22 15:32 | DS ---
Physical Examination Vital Signs: Vital Signs Temperature 98.2 F 12/22/17 14:47 Pulse Rate 87 12/22/17 14:47 Respiratory Rate 18 12/22/17 14:47 Blood Pressure 161/93 12/22/17 14:47 O2 Sat by Pulse Oximetry (%) 97 12/22/17 09:00 - Primary Care Physician PCP: Angel Lopez - Admission Chief Complaint: SENT FROM WOUND CLINIC FOR WORSENING RIGHT FOOT INFECTION/ULCER Labs: CBC, BMP 12/20/17 06:45 12/20/17 06:45 Discharge Summary Reason For Visit: DIABETIC FOOT ULCER/CHRONIC OSTEOMYLETIS Current Active Problems Diabetic foot ulcer (Chronic) Osteomyelitis, chronic (Chronic) Hospital Course: - Primary Care Physician PCP: Angel Lopez - Admission Chief Complaint: SENT FROM WOUND CLINIC FOR WORSENING RIGHT FOOT INFECTION/ULCER in hospital elevated WBC count on rocephin now stop abx MRI shows no osteo positive charcot joint wound colonized with MRSA topical mupirocin footulcer Follwed by podatiry- santyl offload with knee rollar FU with podiary at wound care center Condition: Stable - Instructions Diet, Activity, Other Instructions: Follow up at wound care center in one week Referrals: Angel Lopez MD [Primary Care Provider] - Maria C Le DPM [Staff Physician] - 1 Week (at wound care center in one week) Disposition: HOME - Home Medications Comprehensive Discharge Medication List: Ambulatory Orders Citalopram Hydrobromide [Celexa -] 10 mg PO DAILY 12/19/17 Lisinopril [Prinivil] 20 mg PO BID 12/19/17
[2017-12-26] MEDS ORDERED: ERGOCALCIFEROL (VITAMIN D2) 50,000 UNIT CAPSULE (FP) PO SCH (10:00)
== END 2017-12-22 18:44 | disposition home or self-care (01) | DRG 380 ==
LOC: JER 12:37 → JERBED 14:32 → J5S 16:55 → J8W 12-22 13:45
PROVIDERS: ADMIT Family Medicine; ATTEND Family Medicine
DX: E11.621 Type 2 diabetes mellitus with foot ulcer (principal); E11.21 Type 2 diabetes mellitus with diabetic nephropathy; L97.519 Non-pressure chronic ulcer of other part of right foot with unspecified severity; E11.65 Type 2 diabetes mellitus with hyperglycemia; E11.40 Type 2 diabetes mellitus with diabetic neuropathy, unspecified; E66.9 Obesity, unspecified; F31.9 Bipolar disorder, unspecified; F20.9 Schizophrenia, unspecified; Z91.19 Patient's noncompliance with other medical treatment and regimen; E78.5 Hyperlipidemia, unspecified; R19.7 Diarrhea, unspecified; A52.16 Charcot's arthropathy (tabetic); I10 Essential (primary) hypertension; Z68.37 Body mass index [BMI] 37.0-37.9, adult
CPT/HCPCS: 36415; 73630-TC-RT-FY; 73718-TC; 80053; 80061; 81003; 82962; 83036; 83605; 83721; 84703; 85025; 85027; 85651; 86140; 87040; 87070; 87086; 87186; 87205; 87324; 87449; 99283-25; J1644

== ENCOUNTER 2018-02-21 10:38 | Inpatient (IN) | payer OTHER ==
[2018-02-21] MEDS ORDERED: SODIUM CHLORIDE 1,000 ML IV STA (11:16)
[2018-02-21] MEDS ORDERED: CLINDAMYCIN 600MG PREMIX IVPB 600 MG/50 ML BAG IVPB ONE ×2 (11:16→11:20)
[2018-02-21] MEDS ORDERED: VANCOMYCIN 1,000 MG in DEXTROSE 5%-WATER - 250 ML IVPB ONE (11:19)
--- NOTE | 2018-02-21 11:26 | PDOC ---
History of Present Illness - General Chief Complaint: Wound Stated Complaint: Wound Time Seen by Provider: 02/21/18 11:09 History Source: Patient - History of Present Illness Timing/Duration: other Associated Symptoms: denies: fever/chills, nausea/vomiting, weakness Past History - Past Medical History Allergies/Adverse Reactions: Allergies Allergy/AdvReac Type Severity Reaction Status Date / Time No Known Allergies Allergy Verified 02/21/18 10:46 Home Medications: Ambulatory Orders Citalopram Hydrobromide [Celexa -] 10 mg PO DAILY 12/19/17 Lisinopril [Prinivil] 20 mg PO BID 12/19/17 Collagenase Clostridium Hist. [Santyl -] 1 applic TP DAILY #1 tube 12/22/17 Mupirocin Cream [Bactroban 2% Cream -] 1 applic TP BID #1 tube MDD 2 12/22/17 Insulin (Levemir) [Levemir Vial] 20 units SQ BID 02/21/18 Insulin Lispro [Humalog] 0 unit SQ ASDIR 02/21/18 Cancer: No Cardiac Disorders: No CVA: No COPD: No CHF: No Dementia: No Diabetes: Yes (iddm) GI Disorders: No Disorders: No HTN: Yes Hypercholesterolemia: No Liver Disease: No Seizures: No Thyroid Disease: No - Immunization History Immunization Up to Date: Yes - Suicide/Smoking/Psychosocial Hx Smoking History: Never smoked Have you smoked in the past 12 months: No Information on smoking cessation initiated: No Hx Alcohol Use: No Drug/Substance Use Hx: No Substance Use Type: None Hx Substance Use Treatment: No Review of Systems - Review of Systems Constitutional: No: Chills, Fever Musculoskeletal: Yes: Joint Swelling *Physical Exam - Vital Signs Last Vital Signs Temp Pulse Resp BP Pulse Ox 98.5 F 89 15 140/73 100 02/21/18 10:46 02/21/18 10:46 02/21/18 10:46 02/21/18 10:46 02/21/18 10:46 - Physical Exam General Appearance: Yes: Appropriately Dressed. No: Apparent Distress HEENT: positive: Normal Voice Neck: positive: Supple Respiratory/Chest: negative: Respiratory Distress Extremity: positive: Other (2x2cm deep plantar ulcer to R foot w/ moderate edema of foot extending into ankle w/ possible abscess formation to lateral aspect of foot, unable to appreciate any erythema, no active drainage, pedal pulses intact b/l) Integumentary: positive: Dry, Warm Neurologic: positive: Fully Oriented, Alert, Normal Mood/Affect ED Treatment Course - LABORATORY CBC & Chemistry Diagram: 02/21/18 12:00 02/21/18 12:00 - RADIOLOGY Radiology Studies Ordered: Category Date Time Status CHEST PA & LAT [RAD] Stat Radiology 02/21/18 11:15 Ordered FOOT-RIGHT [RAD] Stat Radiology 02/21/18 11:15 Ordered Medical Decision Making - Medical Decision Making 02/21/18 11:22 42-year-old female, poorly controlled IDDM w/ HbA1c of 11%, HTN, chronic right foot plantar ulcer, bipolar disorder and schizophrenia here with suspected right foot infection. Patient states for the past 6 days she's had worsening pain and swelling of her right foot extending into her ankle and has since been limping. No fever or chills. No recent trauma. States she saw her wound doctor, Dr. Le, 5 days ago and told that she needed admission for an infection. The patient refused to come in then because she has small children that she had to make arrangements for. States she is now here for admission. Of note, pt s/p admission for R foot cellulitis 12/17 and tx w/ vanco, MRSA on wound cx, sen to vanco, resistant to clinda and bactrim. Signs of charcot's foot seen on MRI. No h/o of osteo or amputations See exam R foot cellulitis in poorly controlled IDDM R/o osteo Stable in ER, not toxic prince -xr -labs -IV abx -admit 02/21/18 11:[address] Belcher pending w/u/admission *DC/Admit/Observation/Transfer Diagnosis at time of Disposition: Cellulitis, Anemia Diabetic foot ulcer Qualifiers: Diabetic foot ulcer location: other Diabetes mellitus type: type 2 Laterality: right Non-pressure ulcer stage: unspecified non-pressure ulcer stage Qualified Code(s): E11.621 - Type 2 diabetes mellitus with foot ulcer - Discharge Dispostion Condition at time of disposition: Guarded - Referrals - Patient Instructions - Post Discharge Activity
[2018-02-21] MEDS ORDERED: VANCOMYCIN 1 GRAM (PRE-DOCKED) 1,000 MG/250 ML BAG IVPB ONE (11:40)
[2018-02-21 12:13] LABS: EOS % 1.3 % (0-4.5); HEMATOCRIT 33.2 % (32.4-45.2); HEMOGLOBIN 10.5 GM/dL (10.7-15.3); LYMPH % 19.5 % (8-40); MCH 21.2 pg (25.7-33.7); MCHC 31.7 g/dl (32.0-36.0); MEAN PLT VOLUME 7.9 fl (7.5-11.1); MONO % 5.2 % (3.8-10.2); PLATELET COUNT 493 K/MM3 (134-434); RBC 4.95 M/mm3 (3.60-5.2); RDW 16.6 % (11.6-15.6); WHITE BLOOD COUNT 11.1 K/mm3 (4.0-10.0)
[2018-02-21 12:17] LABS: ADD RBC MORPHOLOGY YES
--- NOTE | 2018-02-21 12:27 | PDOC ---
*Physical Exam - Vital Signs Last Vital Signs Temp Pulse Resp BP Pulse Ox 98.5 F 89 15 140/73 100 02/21/18 10:46 02/21/18 10:46 02/21/18 10:46 02/21/18 10:46 02/21/18 10:46 02/21/18 12:20 Patient's care endorsed to me by Luisana Hall. This is a patient of Dr. Lopez who also follows with Dr. Le who has h/o poorly controlled IDDM (last A1C >11), MRSA cellulitis, and paranoid schizophrenia. She was seen by Dr. Le a few days ago with pain/swelling and apparent infected plantar ulcer and cellulitis RLE. Dr. Le instructed her to come to the ED to be admitted at that time, but the patient did not come, states because she had to coordinate childcare. Here in the ED the patient has a deep ulcer on the plantar surface, also swelling/erythema/tenderness to the lateral aspect of foot and ankle, pulses intact, patient does not appear toxic. Her prior cellulitis has been susceptible to vancomycin and this has been ordered already. Workup pending and patient will be admitted to Dr. Leavitt who is on for Dr. Lopez. ED Treatment Course - LABORATORY CBC & Chemistry Diagram: 02/21/18 12:00 02/21/18 12:00 - ADDITIONAL ORDERS Additional order review: 02/21/18 12:00 RBC 4.95 MCV 67.0 L MCHC 31.7 L RDW 16.6 H MPV 7.9 Neutrophils % 73.0 D Lymphocytes % 19.5 D Monocytes % 5.2 Eosinophils % 1.3 Basophils % 1.0 Medical Decision Making - Medical Decision Making 02/21/18 12:[address] Leavitt, patient admitted to Med/Surg IP. She was given the vancomycin, remaining labs pending, XR pending. *DC/Admit/Observation/Transfer Diagnosis at time of Disposition: Diabetic foot ulcer Qualifiers: Diabetic foot ulcer location: other Diabetes mellitus type: type 2 Laterality: right Non-pressure ulcer stage: unspecified non-pressure ulcer stage Qualified Code(s): E11.621 - Type 2 diabetes mellitus with foot ulcer Cellulitis Qualifiers: Site of cellulitis: extremity Site of cellulitis of extremity: lower extremity Laterality: right Qualified Code(s): L03.115 - Cellulitis of right lower limb Anemia Qualifiers: Anemia type: unspecified type Qualified Code(s): D64.9 - Anemia, unspecified - Discharge Dispostion Condition at time of disposition: Guarded Decision to Admit order: Yes - Referrals Referrals: Angel Lopez MD [Primary Care Provider] - - Patient Instructions - Post Discharge Activity
[2018-02-21 12:41] LABS: ALBUMIN 3.2 g/dl (3.4-5.0); ALK PHOS 164 U/L (45-117); ANION GAP 7 (8-16); BILIRUBIN,TOTAL 0.2 mg/dL (0.2-1.0); BLOOD UREA NITROGEN 14 mg/dL (7-18); CALCIUM 8.9 mg/dL (8.5-10.1); CHLORIDE 102 mmol/L (98-107); CO2 29 mmol/L (21-32); CREATININE 0.9 mg/dL (0.55-1.02); GLUCOSE,RANDOM 270 mg/dL (74-106); SGPT/ALT 19 U/L (12-78); SODIUM 138 mmol/L (136-145); TOT PROT 7.5 g/dl (6.4-8.2)
[2018-02-21 12:43] LABS: POTASSIUM 4.2 mmol/L (3.5-5.1); SGOT/AST 20 U/L (15-37)
[2018-02-21 13:13] LABS: ANISOCYTOSIS 1+; PLATELET ESTIMATE SLT INCREASE
[2018-02-21 14:03] LABS: INR 0.97 (0.82-1.09)
[2018-02-21 14:05] LABS: URINE APPEARANCE CLEAR; URINE BILIRUBIN NEGATIVE (<2.0 mg/dL); URINE GLUCOSE (UA) 3+ (NEGATIVE); URINE KETONE NEGATIVE (NEGATIVE); URINE LEUK ESTERASE NEGATIVE (NEGATIVE); URINE NITRITE NEGATIVE (NEGATIVE); URINE PROTEIN NEGATIVE (NEGATIVE); URINE UROBILINOGEN NEGATIVE mg/dL (0.2-1.0)
[2018-02-21 14:06] LABS: URINE COLOR YELLOW
[2018-02-21] MEDS ORDERED: PIPERACILLIN/TAZOB 3.375 GM 3.375 GM/50 ML BAG IVPB ONE (14:52)
[2018-02-21] MEDS: PIPERACILLIN/TAZOB 3.375 GM 3.375 GM in DEXTROSE 5%-WATER - 50 ML IVPB SCH ×2 (15:01→18:00)
[2018-02-21] MEDS ORDERED: INSULIN (NOVOLOG) ASPART 100 UNITS/ML 10ML VIAL ONE (17:59)
[2018-02-21] MEDS: INSULIN (NOVOLOG) ASPART 100 UNITS/ML 10ML VIAL SQ SCH ×2 (17:59→22:38)
[2018-02-21] MEDS ORDERED: PIPERACILLIN/TAZOB 3.375 GM 3.375 GM in DEXTROSE 5%-WATER - 50 ML IVPB SCH (18:00)
[2018-02-21] MEDS: HEPARIN NA (PORCINE) 5,000 UNITS/ML 1ML VIAL SQ SCH (22:37)
[2018-02-21] MEDS: INSULIN (LEVEMIR) 100 UNITS/ML UNITS SQ SCH (22:38)
[2018-02-21] MEDS: LISINOPRIL 20 MG TABLET (FP) PO SCH (22:39)
[2018-02-22 00:17] VITALS: BMI 38.2
[2018-02-22] MEDS ORDERED: PIPERACILLIN/TAZOBACTAM 3.375 GM VIAL IVPB ONE ×2 (01:24→17:32)
[2018-02-22] MEDS ORDERED: DEXTROSE 5%-WATER - 50 ML IVPB ONE ×2 (01:25→17:32)
[2018-02-22] MEDS: PIPERACILLIN/TAZOB 3.375 GM 3.375 GM in DEXTROSE 5%-WATER - 50 ML IVPB SCH ×2 (01:36→17:34)
[2018-02-22] MEDS ORDERED: DEXTROSE 50%-WATER - 25 GM/50 ML VIAL IVPUSH ONE (06:34)
[2018-02-22] MEDS ORDERED: DEXTROSE 50%-WATER 25 GM/50 ML DISP.SYRIN ONE (06:39)
[2018-02-22] MEDS: INSULIN (NOVOLOG) ASPART 100 UNITS/ML 10ML VIAL SQ SCH ×4 (06:45→21:49)
[2018-02-22] MEDS: INSULIN (LEVEMIR) 100 UNITS/ML UNITS SQ SCH ×2 (07:00→21:49)
[2018-02-22 07:18] LABS: BASO % 0.6 % (0-2.0); EOS % 2.1 % (0-4.5); HEMATOCRIT 28.4 % (32.4-45.2); LYMPH % 26.5 % (8-40); MCH 21.2 pg (25.7-33.7); MCHC 31.8 g/dl (32.0-36.0); MEAN CELL VOLUME 66.5 fl (80-96); MEAN PLT VOLUME 7.9 fl (7.5-11.1); MONO % 5.6 % (3.8-10.2); NEUT % 65.2 % (42.8-82.8); PLATELET COUNT 421 K/MM3 (134-434); RBC 4.27 M/mm3 (3.60-5.2); RDW 16.4 % (11.6-15.6)
[2018-02-22 08:16] LABS: ALBUMIN 2.6 g/dl (3.4-5.0); ALK PHOS 125 U/L (45-117); ANION GAP 5 (8-16); BILIRUBIN,TOTAL 0.2 mg/dL (0.2-1.0); BLOOD UREA NITROGEN 12 mg/dL (7-18); CALCIUM 8.1 mg/dL (8.5-10.1); CHLORIDE 108 mmol/L (98-107); CO2 29 mmol/L (21-32); CREATININE 0.7 mg/dL (0.55-1.02); GLUCOSE,RANDOM 167 mg/dL (74-106); POTASSIUM 3.9 mmol/L (3.5-5.1); SGOT/AST 13 U/L (15-37); SGPT/ALT 15 U/L (12-78); SODIUM 142 mmol/L (136-145); TOT PROT 6.2 g/dl (6.4-8.2)
[2018-02-22] MEDS ORDERED: PT OWN MED DRAWER 7, Y5N ONE (10:40)
[2018-02-22] MEDS: LISINOPRIL 20 MG TABLET (FP) PO SCH ×2 (10:50→21:49)
[2018-02-22] MEDS: HEPARIN NA (PORCINE) 5,000 UNITS/ML 1ML VIAL SQ SCH ×2 (10:51→21:49)
[2018-02-22] MEDS: CITALOPRAM HYDROBROMIDE 10 MG TABLET (FP) PO SCH (10:51)
--- NOTE | 2018-02-22 11:39 | HP ---
Admitting History and Physical - Admission History of Present Illness: 42-year-old female, poorly controlled IDDM w/ HbA1c of 11%, HTN, chronic right foot plantar ulcer, bipolar disorder and schizophrenia here with suspected right foot infection. Patient states for the past 6 days she's had worsening pain and swelling of her right foot extending into her ankle and has since been limping. No fever or chills. No recent trauma. States she saw her wound doctor, Dr. Le, 5 days ago and told that she needed admission for an infection. The patient refused to come in then because she has small children that she had to make arrangements for. States she is now here for admission. Of note, pt s/p admission for R foot cellulitis 12/17 and tx w/ vanco, MRSA on wound cx, sen to vanco, resistant to clinda and bactrim. Signs of charcot's foot seen on MRI. No h/o of osteo or amputations - Past Medical History Cardiovascular: Yes: HTN Gastrointestinal: Yes: Constipation, GERD ...LMP: 11/03/18 Heme/Onc: No: Anemia, B12 Deficiency, Bleeding Disorder, Cancer, Current Chemotherapy, Current Radiation Therapy, Hemochromatosis, Hypercoaguable State, Myeloproliferative Synd, Sickle Cell Disease, Sickle Cell Trait, Thrombocytopenia, Other Psych: Yes: Addictions, Anxiety, Bipolar, Depression, Panic, Psychosis, Schizophrenia, Other Endocrine: Yes: Diabetes Mellitus - Past Surgical History Past Surgical History: Yes: - Smoking History Smoking history: Never smoked Have you smoked in the past 12 months: No - Alcohol/Substance Use Hx Alcohol Use: No Home Medications - Allergies Allergies/Adverse Reactions: Allergies Allergy/AdvReac Type Severity Reaction Status Date / Time No Known Allergies Allergy Verified 02/21/18 10:46 - Home Medications Home Medications: Ambulatory Orders Citalopram Hydrobromide [Celexa -] 10 mg PO DAILY 12/19/17 Lisinopril [Prinivil] 20 mg PO BID 12/19/17 Collagenase Clostridium Hist. [Santyl -] 1 applic TP DAILY #1 tube 12/22/17 Mupirocin Cream [Bactroban 2% Cream -] 1 applic TP BID #1 tube MDD 2 12/22/17 Insulin (Levemir) [Levemir Vial] 20 units SQ BID 02/21/18 Insulin Lispro [Humalog] 0 unit SQ ASDIR 02/21/18 Review of Systems - Review of Systems Cardiovascular: reports: No Symptoms Respiratory: reports: No Symptoms Gastrointestinal: reports: No Symptoms Integumentary: reports: Wound Neurological: reports: No Symptoms Physical Examination Vital Signs: Vital Signs Temperature 98.2 F 02/22/18 05:48 Pulse Rate 78 02/22/18 05:48 Respiratory Rate 20 02/22/18 05:48 Blood Pressure 127/69 02/22/18 05:48 O2 Sat by Pulse Oximetry (%) 98 02/21/18 22:00 Cardiovascular: Yes: S1, S2 Respiratory: Yes: Regular, CTA Bilaterally Gastrointestinal: Yes: Normal Bowel Sounds, Soft. No: Tenderness Edema: No Wound/Incision: Yes: Dressing Removed, Excoriated, Other (ULCER WITHOUT DRAINAGE ) Labs: CBC, BMP 02/22/18 06:40 02/22/18 06:40 Imaging - Results X-ray: Report Reviewed Problem List - Problems (1) Diabetic foot ulcer Assessment/Plan: -IV ABX =MRI -PODIATRY Code(s): E11.621 - TYPE 2 DIABETES MELLITUS WITH FOOT ULCER; L97.509 - NON- PRESSURE CHRONIC ULCER OTH PRT UNSP FOOT W UNSP SEVERITY Qualifiers: Diabetic foot ulcer location: other Diabetes mellitus type: type 2 Laterality: right Non-pressure ulcer stage: unspecified non-pressure ulcer stage Qualified Code(s): E11.621 - Type 2 diabetes mellitus with foot ulcer; L97.519 - Non-pressure chronic ulcer of other part of right foot with unspecified severity (2) Hypertension Assessment/Plan: -MONITOR Code(s): I10 - ESSENTIAL (PRIMARY) HYPERTENSION (3) Type 2 diabetes mellitus with diabetic nephropathy Assessment/Plan: -BGM -ENDO Code(s): E11.21 - TYPE 2 DIABETES MELLITUS WITH DIABETIC NEPHROPATHY Qualifiers: Diabetes mellitus 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
[2018-02-23] MEDS ORDERED: DEXTROSE 5%-WATER - 50 ML IVPB ONE ×3 (02:32→17:56)
[2018-02-23] MEDS ORDERED: PIPERACILLIN/TAZOBACTAM 3.375 GM VIAL IVPB ONE ×3 (02:32→17:56)
[2018-02-23] MEDS: PIPERACILLIN/TAZOB 3.375 GM 3.375 GM in DEXTROSE 5%-WATER - 50 ML IVPB SCH ×3 (02:36→17:52)
[2018-02-23] MEDS: INSULIN (NOVOLOG) ASPART 100 UNITS/ML 10ML VIAL SQ SCH ×4 (06:35→21:41)
[2018-02-23] MEDS: INSULIN (LEVEMIR) 100 UNITS/ML UNITS SQ SCH ×2 (06:36→21:42)
--- NOTE | 2018-02-23 08:17 | PN ---
Progress Note (short form) - Note Progress Note: ID Consult dictated Infected diabetic foot ulcer Possible abscess/ osteomyelitis Hx MRSA Uncontrolled DM Await c/s Podiatry evaluation Empiric vancomycin/ zosyn Local wound care
[2018-02-23] MEDS ORDERED: PT OWN MED DRAWER 7, Y5N ONE ×2 (08:51→17:03)
[2018-02-23] MEDS: HEPARIN NA (PORCINE) 5,000 UNITS/ML 1ML VIAL SQ SCH ×2 (09:04→21:43)
[2018-02-23] MEDS: CITALOPRAM HYDROBROMIDE 10 MG TABLET (FP) PO SCH (09:04)
[2018-02-23] MEDS: LISINOPRIL 20 MG TABLET (FP) PO SCH ×2 (09:04→21:42)
--- NOTE | 2018-02-23 09:23 | CONSULT ---
Consult - text type - Consultation Consultation Note: Patient returns for tx of infected charcot foot right. Was supposed to be admitted on Friday last week however had to get her children situated first. vss, Tmax 99.8 +grade 3 wound plantar right foot, -mal odor, +mild drainage, +granulation tissue noted om? grade 3 wound right MRI right foot. vascular consult Dr. aquino. Derik wound dressing to right foot. Will follow. Patient does need a walker river walker.
[2018-02-23] MEDS: VANCOMYCIN 1 GM PREMIX - 1 GM/200 ML BAG IVPB SCH ×2 (10:05→21:42)
--- NOTE | 2018-02-23 11:28 | CONS ---
DATE OF CONSULTATION: DATE OF DICTATION: 02/23/2018 HISTORY: The patient is a 42-year-old female with a history of uncontrolled diabetes mellitus evaluated for diabetic foot infection. She reports an approximately 2-[id number]-[id number] of worsening right foot pain and swelling, which caused her difficulty ambulating. She had been seen several days prior to admission by Podiatry and was advised admission, however, because of personal reasons was not admitted until now. She reports increasing pain and swelling of the foot as well as purulent drainage. She denies any associated fevers or chills. She has a history of diabetic foot infection and a history of MRSA. PAST MEDICAL HISTORY: Positive for uncontrolled diabetes mellitus, hypertension, chronic right foot ulcer. ALLERGIES: No known allergies. MEDICATIONS: Celexa, lisinopril, Levemir. SOCIAL HISTORY: Lives at home in the community. Nonsmoker, nondrinker. SYSTEMS REVIEW: Neurologic: No loss of consciousness, seizure activity, focal weakness. Cardiac: Negative chest pain or palpitations. Respiratory: Negative cough or sputum production. Gastrointestinal: Negative vomiting or diarrhea. Genitourinary: Negative for urinary tract infection. LABORATORY DATA: White count 8, hematocrit 28.4, platelet count 421, ESR 32, BUN 12, creatinine 0.7. Urine leukocyte esterase negative. PHYSICAL EXAMINATION: General: She is awake and alert. She is not acutely toxic appearing. Vital Signs: Temperature 98.2, blood pressure 127/69, pulse 78 and regular, respirations 20 per minute. HEENT: Sclerae anicteric. Heart: Sounds S1, S2. Lungs: Clear. Abdomen: Soft. No tenderness elicited. No mass, rebound, or rigidity. Extremities: Examination of the right foot, there is a 1-cm plantar ulcer present, which is dry. There is no drainage or foul odor. On the lateral aspect of the foot there is a fluctuant area with what appears to be a pustule with drainage. No erythema or warmth. Positive Charcot joint right foot IMPRESSION: 1. Infected diabetic foot ulcer. 2. Rule out underlying abscess/osteomyelitis. 3. Uncontrolled diabetes mellitus. 4. History of methicillin-resistant Staphylococcus aureus. PLAN: Await cultures. Podiatry evaluation. Empiric antibiotic coverage vancomycin and Zosyn. Local wound care. We will follow. Thank you for the kind referral. KAMERON GILSE M.D. SUKI/[id number]
--- NOTE | 2018-02-23 13:52 | PN ---
Progress Note, Physician Chief Complaint: patient seen and examined foot wound opened - Current Medication List Current Medications: Active Medications Citalopram Hydrobromide (Celexa -) 10 mg PO DAILY [facility] Last Admin: 02/23/18 09:04 Dose: 10 mg Heparin Sodium (Porcine) (Heparin -) 5,000 unit SQ BID [facility] Last Admin: 02/23/18 09:04 Dose: 5,000 unit Piperacillin Sod/Tazobactam (Sod 3.375 gm/ Dextrose) 50 mls @ 100 mls/hr IVPB Q8H-IV [facility]; Protocol Last Admin: 02/23/18 09:04 Dose: 100 mls/hr Vancomycin HCl (Vancomycin 1 Gm Premix -) 1 gm in 200 mls @ 133.333 mls/hr IVPB BID [facility]; Protocol Last Admin: 02/23/18 10:05 Dose: 133.333 mls/hr Insulin Aspart (Novolog Vial) 0 units SQ ACHS [facility]; Protocol Last Admin: 02/23/18 12:36 Dose: 7 units Insulin Detemir (Levemir Vial) 20 units SQ BID@0700,2200 [facility] Last Admin: 02/23/18 06:36 Dose: 20 units Lisinopril (Prinivil) 20 mg PO BID [facility] Last Admin: 02/23/18 09:04 Dose: 20 mg - Objective Vital Signs: Vital Signs Temperature 99.8 F H 02/23/18 06:00 Pulse Rate 76 02/23/18 06:00 Respiratory Rate 18 02/23/18 06:00 Blood Pressure 158/95 02/23/18 06:00 O2 Sat by Pulse Oximetry (%) 98 02/22/18 21:00 Constitutional: Yes: Calm Neck: Yes: Trachea Midline Cardiovascular: Yes: Regular Rate and Rhythm, S1, S2 Respiratory: Yes: CTA Bilaterally Gastrointestinal: Yes: Normal Bowel Sounds, Soft Wound/Incision: Yes: Other (right foot wound plantar surface yellow draininage tenderness on palpation right lateral wound noted) Neurological: Yes: Alert, Oriented Labs: CBC, BMP 02/22/18 06:40 02/22/18 06:40 INR, PTT INR 0.97 (0.82-1.09) 02/21/18 13:24 Problem List - Problems (1) Diabetic foot ulcer Assessment/Plan: MRI iv abx podiatry vascular elevated esr dvt ppx Code(s): E11.621 - TYPE 2 DIABETES MELLITUS WITH FOOT ULCER; L97.509 - NON- PRESSURE CHRONIC ULCER OTH PRT UNSP FOOT W UNSP SEVERITY Qualifiers: Diabetic foot ulcer location: other Diabetes mellitus type: type 2 Laterality: right Non-pressure ulcer stage: unspecified non-pressure ulcer stage Qualified Code(s): E11.621 - Type 2 diabetes mellitus with foot ulcer; L97.519 - Non-pressure chronic ulcer of other part of right foot with unspecified severity (2) Hypertension Assessment/Plan: lisinopril will add norvasc Code(s): I10 - ESSENTIAL (PRIMARY) HYPERTENSION (3) Anemia Assessment/Plan: iron panel [pending Code(s): D64.9 - ANEMIA, UNSPECIFIED Qualifiers: Anemia type: unspecified type Qualified Code(s): D64.9 - Anemia, unspecified (4) Uncontrolled type 2 diabetes mellitus Assessment/Plan: hgnac1 11.2 bgm levemir sliding scale Code(s): E11.65 - TYPE 2 DIABETES MELLITUS WITH HYPERGLYCEMIA
--- NOTE | 2018-02-23 15:45 | PN ---
Progress Note (short form) - Note Progress Note: VASCULAR SURGERY - Billy Yan Called to eval 42 yo female with infected right charcot foot. Wound management by Podiatry. AVSS. Afebrile. CBC, BMP 02/22/18 06:40 02/22/18 06:40 hgba1c: 11.5 PE Gen: nad RLE: wound plantar aspect right foot, mild drainage, negative bogginess/ induration. granulation tissue. +DP/PT. Warm. Good sensation. Negative pain with movement. . Problem List - Problems (1) Diabetic foot ulcer Assessment/Plan: Patient has good vascular inflow/outflow to RLE. Cont management via primary medical team. Podiatry following. No vascular surgery intervention needed. Re-consult PRN. Above plan discussed with Dr. Yan and agrees. Code(s): E11.621 - TYPE 2 DIABETES MELLITUS WITH FOOT ULCER; L97.509 - NON- PRESSURE CHRONIC ULCER OTH PRT UNSP FOOT W UNSP SEVERITY Qualifiers: Diabetic foot ulcer location: other Diabetes mellitus type: type 2 Laterality: right Non-pressure ulcer stage: unspecified non-pressure ulcer stage Qualified Code(s): E11.621 - Type 2 diabetes mellitus with foot ulcer; L97.519 - Non-pressure chronic ulcer of other part of right foot with unspecified severity
[2018-02-23] MEDS: COLLAGENASE CLOSTRIDIUM HIST. 30 GRAMS TUBE TP SCH (16:31)
[2018-02-23] MEDS ORDERED: INSULIN (NOVOLOG) ASPART 100 UNITS/ML 10ML VIAL ONE (17:48)
--- NOTE | 2018-02-23 21:53 | EKG ---
Test Reason : Blood Pressure : / mmHG Vent. Rate : 089 BPM Atrial Rate : 089 BPM P-R Int : 166 ms QRS Dur : 080 ms QT Int : 370 ms P-R-T Axes : 065 -13 068 degrees QTc Int : 450 ms NORMAL SINUS RHYTHM LOW VOLTAGE QRS BORDERLINE ECG WHEN COMPARED WITH ECG OF 23-OCT-2017 00:25, NO SIGNIFICANT CHANGE WAS FOUND Confirmed by AISHA SALINAS MD ([id number]) on 02/23/2018 9:52:42 PM Referred By: Confirmed By:AISHA SALINAS MD
[2018-02-24] MEDS: PIPERACILLIN/TAZOB 3.375 GM 3.375 GM in DEXTROSE 5%-WATER - 50 ML IVPB SCH ×3 (02:40→17:01)
[2018-02-24] MEDS: INSULIN (LEVEMIR) 100 UNITS/ML UNITS SQ SCH ×2 (06:09→21:58)
[2018-02-24] MEDS: INSULIN (NOVOLOG) ASPART 100 UNITS/ML 10ML VIAL SQ SCH ×4 (06:10→21:59)
[2018-02-24 06:16] LABS: SERUM IRON SATURATION 5 % (15-55); TOTAL IRON BINDING CAPACITY 298 ug/dL (250-450); UIBC 283 ug/dL (131-425)
[2018-02-24] MEDS ORDERED: INSULIN (NOVOLOG) ASPART 100 UNITS/ML 10ML VIAL ONE ×4 (06:39→21:57)
[2018-02-24 07:28] LABS: EOS % 1.5 % (0-4.5); HEMATOCRIT 31.6 % (32.4-45.2); HEMOGLOBIN 10.1 GM/dL (10.7-15.3); LYMPH % 30.2 % (8-40); MCH 21.2 pg (25.7-33.7); MCHC 32.1 g/dl (32.0-36.0); NEUT % 59.3 % (42.8-82.8); PLATELET COUNT 443 K/MM3 (134-434); RBC 4.79 M/mm3 (3.60-5.2); RDW 16.9 % (11.6-15.6); WHITE BLOOD COUNT 7.5 K/mm3 (4.0-10.0)
[2018-02-24 07:36] LABS: CHLORIDE 104 mmol/L (98-107); POTASSIUM 4.7 mmol/L (3.5-5.1); SODIUM 138 mmol/L (136-145)
[2018-02-24 07:43] LABS: ALBUMIN 2.8 g/dl (3.4-5.0); ALK PHOS 124 U/L (45-117); ANION GAP 6 (8-16); BILIRUBIN,TOTAL 0.3 mg/dL (0.2-1.0); BLOOD UREA NITROGEN 18 mg/dL (7-18); CALCIUM 8.7 mg/dL (8.5-10.1); CO2 28 mmol/L (21-32); CREATININE 0.9 mg/dL (0.55-1.02); GLUCOSE,RANDOM 174 mg/dL (74-106); SGOT/AST 12 U/L (15-37); SGPT/ALT 15 U/L (12-78); TOT PROT 6.7 g/dl (6.4-8.2)
[2018-02-24 08:40] LABS: CHOLESTEROL 172 mg/dL (50-200); HDL CHOLESTEROL 41 mg/dL (40-60)
[2018-02-24 08:43] LABS: TRIGLYCERIDES 160 mg/dL (35-160)
[2018-02-24] MEDS ORDERED: PT OWN MED DRAWER 7, Y5N ONE ×2 (09:59→21:48)
[2018-02-24] MEDS ORDERED: PIPERACILLIN/TAZOBACTAM 3.375 GM VIAL IVPB ONE ×2 (09:59→16:54)
[2018-02-24] MEDS ORDERED: DEXTROSE 5%-WATER - 50 ML IVPB ONE ×2 (09:59→16:55)
[2018-02-24] MEDS: LISINOPRIL 20 MG TABLET (FP) PO SCH ×2 (10:07→21:58)
[2018-02-24] MEDS: COLLAGENASE CLOSTRIDIUM HIST. 30 GRAMS TUBE TP SCH (10:07)
[2018-02-24] MEDS: VANCOMYCIN 1 GM PREMIX - 1 GM/200 ML BAG IVPB SCH ×2 (10:07→22:32)
[2018-02-24] MEDS: HEPARIN NA (PORCINE) 5,000 UNITS/ML 1ML VIAL SQ SCH ×2 (10:07→21:58)
[2018-02-24] MEDS: CITALOPRAM HYDROBROMIDE 10 MG TABLET (FP) PO SCH (10:07)
--- NOTE | 2018-02-24 10:08 | PN ---
Progress Note (short form) - Note Progress Note: Patient seen in bed. Had MRI. Eager to leave again. vss, Tmax 98.8 +grade 3 wound plantar right foot, -mal odor, +mild drainage, +granulation tissue noted, +om on mri om? grade 3 wound right Santyl wound dressing to right foot. Patient can go home with IVABX and offloading of right leg. TCC EZ cast and or knee roller would be best. No surgical intervention at this time. HBO consult done.
--- NOTE | 2018-02-24 11:23 | PN ---
Progress Note, Physician Chief Complaint: Diabetic foot ulcer History of Present Illness: NAD, in bed eager to go home self ambulatory Seen by ID and podiatry on IV vanco and zosyn - Current Medication List Current Medications: Active Medications Citalopram Hydrobromide (Celexa -) 10 mg PO DAILY [facility] Last Admin: 02/24/18 10:07 Dose: 10 mg Collagenase (Santyl -) 1 applic TP DAILY [facility]; Protocol Last Admin: 02/24/18 10:07 Dose: 1 applic Heparin Sodium (Porcine) (Heparin -) 5,000 unit SQ BID [facility] Last Admin: 02/24/18 10:07 Dose: 5,000 unit Piperacillin Sod/Tazobactam (Sod 3.375 gm/ Dextrose) 50 mls @ 100 mls/hr IVPB Q8H-IV [facility]; Protocol Last Admin: 02/24/18 10:07 Dose: 100 mls/hr Vancomycin HCl (Vancomycin 1 Gm Premix -) 1 gm in 200 mls @ 133.333 mls/hr IVPB BID [facility]; Protocol Last Admin: 02/24/18 10:07 Dose: 133.333 mls/hr Iron Sucrose 300 mg/ Sodium (Chloride) 250 mls @ 250 mls/hr IVPB DAILY ONE Stop: 02/24/18 12:20 Insulin Aspart (Novolog Vial) 0 units SQ ACHS [facility]; Protocol Last Admin: 02/24/18 10:10 Dose: 7 units Insulin Detemir (Levemir Vial) 20 units SQ BID@0700,2200 [facility] Last Admin: 02/24/18 06:09 Dose: 20 units Lisinopril (Prinivil) 20 mg PO BID [facility] Last Admin: 02/24/18 10:07 Dose: 20 mg - Objective Vital Signs: Vital Signs Temperature 98.8 F 02/24/18 05:46 Pulse Rate 74 02/24/18 05:46 Respiratory Rate 20 02/24/18 05:46 Blood Pressure 135/76 02/24/18 05:46 O2 Sat by Pulse Oximetry (%) 98 02/23/18 21:00 Constitutional: Yes: Well Nourished, No Distress, Calm Labs: CBC, BMP 02/24/18 06:30 02/24/18 06:30 INR, PTT INR 0.97 (0.82-1.09) 02/21/18 13:24 Problem List - Problems (1) Anemia Assessment/Plan: -BRADY+ chronic disease -monitor trend -Venofer given Code(s): D64.9 - ANEMIA, UNSPECIFIED Qualifiers: Anemia type: unspecified type Qualified Code(s): D64.9 - Anemia, unspecified (2) Diabetic foot ulcer Assessment/Plan: -Seen by Podiatry -no surgical intervention recommended at this time -Santyl on the wound daily -Will f/u with podiatry at [facility] outpatient -going home with PICC and IV abx +PO abx -Seen by ID Code(s): E11.621 - TYPE 2 DIABETES MELLITUS WITH FOOT ULCER; L97.509 - NON- PRESSURE CHRONIC ULCER OTH PRT UNSP FOOT W UNSP SEVERITY Qualifiers: Diabetic foot ulcer location: other Diabetes mellitus type: type 2 Laterality: right Non-pressure ulcer stage: unspecified non-pressure ulcer stage Qualified Code(s): E11.621 - Type 2 diabetes mellitus with foot ulcer; L97.519 - Non-pressure chronic ulcer of other part of right foot with unspecified severity (3) Osteomyelitis, chronic Code(s): M86.60 - OTHER CHRONIC OSTEOMYELITIS, UNSPECIFIED SITE (4) Uncontrolled type 2 diabetes mellitus Assessment/Plan: -BGM AC HS -Diabetic diet -Insulin- long and short acting -Endocrinology consult Code(s): E11.65 - TYPE 2 DIABETES MELLITUS WITH HYPERGLYCEMIA Assessment/Plan see problem list
[2018-02-24] MEDS ORDERED: IRON SUCROSE INJECTION 300 MG in SODIUM CHLORIDE 235 ML IVPB ONE (11:45)
--- NOTE | 2018-02-24 13:32 | PN ---
Progress Note, Physician History of Present Illness: Awake, alert No c/o foot pain No fever/ chills BC no growth MRI shows osteomyelitis R foot - Current Medication List Current Medications: Active Medications Citalopram Hydrobromide (Celexa -) 10 mg PO DAILY [facility] Last Admin: 02/24/18 10:07 Dose: 10 mg Collagenase (Santyl -) 1 applic TP DAILY [facility]; Protocol Last Admin: 02/24/18 10:07 Dose: 1 applic Heparin Sodium (Porcine) (Heparin -) 5,000 unit SQ BID [facility] Last Admin: 02/24/18 10:07 Dose: 5,000 unit Piperacillin Sod/Tazobactam (Sod 3.375 gm/ Dextrose) 50 mls @ 100 mls/hr IVPB Q8H-IV [facility]; Protocol Last Admin: 02/24/18 10:07 Dose: 100 mls/hr Vancomycin HCl (Vancomycin 1 Gm Premix -) 1 gm in 200 mls @ 133.333 mls/hr IVPB BID [facility]; Protocol Last Admin: 02/24/18 10:07 Dose: 133.333 mls/hr Insulin Aspart (Novolog Vial) 0 units SQ ACHS [facility]; Protocol Last Admin: 02/24/18 10:10 Dose: 7 units Insulin Detemir (Levemir Vial) 20 units SQ BID@0700,2200 [facility] Last Admin: 02/24/18 06:09 Dose: 20 units Lisinopril (Prinivil) 20 mg PO BID [facility] Last Admin: 02/24/18 10:07 Dose: 20 mg - Objective Vital Signs: Vital Signs Temperature 98.8 F 02/24/18 05:46 Pulse Rate 74 02/24/18 05:46 Respiratory Rate 20 02/24/18 05:46 Blood Pressure 135/76 02/24/18 05:46 O2 Sat by Pulse Oximetry (%) 98 02/23/18 21:00 Constitutional: Yes: Well Nourished Eyes: Yes: Conjunctiva Clear Cardiovascular: Yes: S1 Respiratory: Yes: CTA Bilaterally Gastrointestinal: Yes: Normal Bowel Sounds, Soft Extremities: Yes: Other (+ Charcot joint, dry plantar ulcer, dry lateral foot pustule) Edema: LLE: 1+, RLE: 1+ Psychiatric: Yes: WNL Labs: CBC, BMP 02/24/18 06:30 02/24/18 06:30 INR, PTT INR 0.97 (0.82-1.09) 02/21/18 13:24 Assessment/Plan Infected diabetic foot ulcer/ chronic osteomyelitis Diabetes mellitus Hx MRSA Needs PICC for outpatient antibiotic tx Vancomycin 1gm IVPB q24h x 5w Levaquin 500mg po qd x5w Flagyl 500 mg po tid x 2w
--- NOTE | 2018-02-25 00:13 | CONSULT ---
Consult Consult Specialty:: endocrine Referred by:: sean stevenson NP Reason for Consultation:: diabetes mellitus hyperglycemia - History of Present Illness Chief Complaint: high sugars History of Present Illness: 42-year-old female, poorly controlled IDDM w/ HbA1c of 11%, HTN, chronic right foot plantar ulcer, bipolar disorder and schizophrenia here with suspected right foot infection. Patient states for the past 6 days she's had worsening pain and swelling of her right foot extending into her ankle and has since been limping. No fever or chills. No recent trauma. States she saw her wound doctor, Dr. Le, 5 days ago and told that she needed admission for an infection. The patient refused to come in then because she has small children that she had to make arrangements for. States she is now here for admission.she has elevated sugars at home despite taking insulin,she atributes to foot infection. - History Source History Provided By: Patient - Past Medical History Cardio/Vascular: Yes: HTN Gastrointestinal: Yes: Constipation, GERD ...LMP: 11/03/18 Psych: Yes: Addictions, Anxiety, Bipolar, Depression, Panic, Psychosis, Schizophrenia, Other Endocrine: Yes: Diabetes Mellitus - Past Surgical History Past Surgical History: Yes: - Alcohol/Substance Use Hx Alcohol Use: No - Smoking History Smoking history: Never smoked Have you smoked in the past 12 months: No Home Medications - Allergies Allergies/Adverse Reactions: Allergies Allergy/AdvReac Type Severity Reaction Status Date / Time No Known Allergies Allergy Verified 02/21/18 10:46 - Home Medications Home Medications: Ambulatory Orders Citalopram Hydrobromide [Celexa -] 10 mg PO DAILY 12/19/17 Lisinopril [Prinivil] 20 mg PO BID 12/19/17 Collagenase Clostridium Hist. [Santyl -] 1 applic TP DAILY #1 tube 12/22/17 Mupirocin Cream [Bactroban 2% Cream -] 1 applic TP BID #1 tube MDD 2 12/22/17 Insulin (Levemir) [Levemir Vial] 20 units SQ BID 02/21/18 Insulin Lispro [Humalog] 0 unit SQ ASDIR 02/21/18 Review of Systems - Review of Systems Constitutional: reports: Lethargy, Weakness Eyes: reports: No Symptoms HENT: reports: No Symptoms Physical Exam Vital Signs: Vital Signs Temperature 98.7 F 02/24/18 18:00 Pulse Rate 80 02/24/18 18:00 Respiratory Rate 20 02/24/18 21:00 Blood Pressure 157/89 02/24/18 18:00 O2 Sat by Pulse Oximetry (%) 97 02/24/18 21:00 Constitutional: Yes: Calm Eyes: Yes: EOM Intact HENT: Yes: Normocephalic Neck: Yes: Trachea Midline Cardiovascular: Yes: Regular Rate and Rhythm Respiratory: Yes: CTA Bilaterally Gastrointestinal: Yes: Normal Bowel Sounds ...Rectal Exam: Yes: Deferred Renal/: Yes: WNL Musculoskeletal: Yes: WNL Extremities: Yes: Delayed Capillary Refill Edema: No Wound/Incision: Yes: Draining Neurological: Yes: Alert, Oriented Labs: CBC, BMP 02/24/18 06:30 02/24/18 06:30 Problem List - Problems (1) Cellulitis Code(s): L03.90 - CELLULITIS, UNSPECIFIED Qualifiers: Site of cellulitis: extremity Site of cellulitis of extremity: lower extremity Laterality: right Qualified Code(s): L03.115 - Cellulitis of right lower limb (2) Anemia Code(s): D64.9 - ANEMIA, UNSPECIFIED Qualifiers: Anemia type: unspecified type Qualified Code(s): D64.9 - Anemia, unspecified (3) Diabetic foot ulcer Code(s): E11.621 - TYPE 2 DIABETES MELLITUS WITH FOOT ULCER; L97.509 - NON- PRESSURE CHRONIC ULCER OTH PRT UNSP FOOT W UNSP SEVERITY Qualifiers: Diabetic foot ulcer location: other Diabetes mellitus type: type 2 Laterality: right Non-pressure ulcer stage: unspecified non-pressure ulcer stage Qualified Code(s): E11.621 - Type 2 diabetes mellitus with foot ulcer; L97.519 - Non-pressure chronic ulcer of other part of right foot with unspecified severity (4) Prescription refill Code(s): Z76.0 - ENCOUNTER FOR ISSUE OF REPEAT PRESCRIPTION (5) Depression Code(s): F32.9 - MAJOR DEPRESSIVE DISORDER, SINGLE EPISODE, UNSPECIFIED (6) Hypertension Code(s): I10 - ESSENTIAL (PRIMARY) HYPERTENSION (7) Obesity (BMI 30-39.9) Code(s): E66.9 - OBESITY, UNSPECIFIED (8) Osteomyelitis, chronic Code(s): M86.60 - OTHER CHRONIC OSTEOMYELITIS, UNSPECIFIED SITE Assessment/Plan Current Active Problems Cellulitis (Acute) Anemia (Chronic) Diabetic foot ulcer (Chronic) diabetes mellitus neuropathy hyperglycemia Abnormal Lab Results 02/22/18 02/24/18 02/24/18 06:40 06:30 06:30 Hgb 10.1 L Hct 31.6 L MCV 66.0 L MCH 21.2 L RDW 16.9 H Plt Count 443 H Anion Gap 6 L Random Glucose 174 H Iron 15 L Iron Saturation 5 L AST 12 L Alkaline Phosphatase 124 H Albumin 2.8 L Total LDL Cholesterol 114 H Laboratory Results - last 24 hr 02/22/18 02/24/18 02/24/18 06:40 06:09 06:30 WBC 7.5 RBC 4.79 Hgb 10.1 L Hct 31.6 L MCV 66.0 L MCH 21.2 L MCHC 32.1 RDW 16.9 H Plt Count 443 H MPV 8.0 Absolute Neuts (auto) 4.5 Neutrophils % 59.3 Lymphocytes % 30.2 Monocytes % 8.0 Eosinophils % 1.5 Basophils % 1.0 Nucleated RBC % 0 Sodium Potassium Chloride Carbon Dioxide Anion Gap BUN Creatinine Creat Clearance w eGFR POC Glucometer 165 Random Glucose Calcium Iron 15 L TIBC 298 Iron Saturation 5 L Total Bilirubin AST ALT Alkaline Phosphatase Total Protein Albumin Triglycerides Cholesterol Total LDL Cholesterol HDL Cholesterol 02/24/18 02/24/18 02/24/18 06:30 06:30 10:09 WBC RBC Hgb Hct MCV MCH MCHC RDW Plt Count MPV Absolute Neuts (auto) Neutrophils % Lymphocytes % Monocytes % Eosinophils % Basophils % Nucleated RBC % Sodium 138 Potassium 4.7 Chloride 104 Carbon Dioxide 28 Anion Gap 6 L BUN 18 Creatinine 0.9 Creat Clearance w eGFR > 60 POC Glucometer 308 Random Glucose 174 H Calcium 8.7 Iron TIBC Iron Saturation Total Bilirubin 0.3 AST 12 L ALT 15 Alkaline Phosphatase 124 H Total Protein 6.7 Albumin 2.8 L Triglycerides 160 Cancelled Cholesterol 172 Cancelled Total LDL Cholesterol 114 H Cancelled HDL Cholesterol 41 Cancelled 02/24/18 02/24/18 17:02 21:54 WBC RBC Hgb Hct MCV MCH MCHC RDW Plt Count MPV Absolute Neuts (auto) Neutrophils % Lymphocytes % Monocytes % Eosinophils % Basophils % Nucleated RBC % Sodium Potassium Chloride Carbon Dioxide Anion Gap BUN Creatinine Creat Clearance w eGFR POC Glucometer 371 275 Random Glucose Calcium Iron TIBC Iron Saturation Total Bilirubin AST ALT Alkaline Phosphatase Total Protein Albumin Triglycerides Cholesterol Total LDL Cholesterol HDL Cholesterol Laboratory Tests 12/20/17 12/20/17 12/20/17 06:45 11:04 16:13 POC Glucometer 308 247 Hemoglobin A1c % 11.2 H 02/22/18 02/23/18 02/24/18 06:40 21:39 06:09 POC Glucometer 423 165 Hemoglobin A1c % 11.5 H 02/24/18 02/24/18 02/24/18 10:09 17:02 21:54 POC Glucometer 308 371 275 Hemoglobin A1c % plan: insulin bgm coverage novolog scale levemir 26 units bid diet nutrtion consult wound care follow up outpatient with endocrine
[2018-02-25] MEDS ORDERED: INSULIN (LEVEMIR) 100 UNITS/ML UNITS SQ SCH (00:16)
[2018-02-25] MEDS ORDERED: PIPERACILLIN/TAZOBACTAM 3.375 GM VIAL IVPB ONE ×3 (01:51→17:45)
[2018-02-25] MEDS ORDERED: DEXTROSE 5%-WATER - 50 ML IVPB ONE ×3 (01:51→17:45)
[2018-02-25] MEDS: PIPERACILLIN/TAZOB 3.375 GM 3.375 GM in DEXTROSE 5%-WATER - 50 ML IVPB SCH ×3 (01:59→18:11)
[2018-02-25] MEDS: INSULIN SLIDING SCALE (NOVOLOG) 1 VIAL SQ SCH ×3 (06:12→16:48)
--- NOTE | 2018-02-25 09:24 | PN ---
Progress Note (short form) - Note Progress Note: Patient seen in bed. vss, Tmax 98.4 +grade 3 wound plantar right foot, -mal odor, +mild drainage, +granulation tissue noted, +om on mri om grade 3 wound right Santyl wound dressing to right foot. Patient can go home with IVABX and offloading of right leg. TCC EZ cast to be applied by wound care prior to DC from hospital. Please call wound care to co-ordinate. No surgical intervention at this time. HBO consult done.
[2018-02-25] MEDS ORDERED: PT OWN MED DRAWER 7, Y5N ONE (09:47)
[2018-02-25] MEDS: LISINOPRIL 20 MG TABLET (FP) PO SCH (09:56)
[2018-02-25] MEDS: CITALOPRAM HYDROBROMIDE 10 MG TABLET (FP) PO SCH (09:56)
[2018-02-25] MEDS: COLLAGENASE CLOSTRIDIUM HIST. 30 GRAMS TUBE TP SCH (09:57)
[2018-02-25] MEDS: HEPARIN NA (PORCINE) 5,000 UNITS/ML 1ML VIAL SQ SCH (09:57)
--- NOTE | 2018-02-25 11:40 | PN ---
Progress Note, Physician Chief Complaint: Diabetic foot ulcer History of Present Illness: NAD, in bed eager to go home self ambulatory Seen by ID and podiatry on IV vanco and zosyn - Current Medication List Current Medications: Active Medications Citalopram Hydrobromide (Celexa -) 10 mg PO DAILY [facility] Last Admin: 02/25/18 09:56 Dose: 10 mg Collagenase (Santyl -) 1 applic TP DAILY [facility]; Protocol Last Admin: 02/25/18 09:57 Dose: 1 applic Heparin Sodium (Porcine) (Heparin -) 5,000 unit SQ BID [facility] Last Admin: 02/25/18 09:57 Dose: 5,000 unit Piperacillin Sod/Tazobactam (Sod 3.375 gm/ Dextrose) 50 mls @ 100 mls/hr IVPB Q8H-IV [facility]; Protocol Last Admin: 02/25/18 09:56 Dose: 100 mls/hr Vancomycin HCl (Vancomycin 1 Gm Premix -) 1 gm in 200 mls @ 133.333 mls/hr IVPB BID [facility]; Protocol Last Admin: 02/24/18 22:32 Dose: 133.333 mls/hr Iron Sucrose 300 mg/ Sodium (Chloride) 250 mls @ 250 mls/hr IVPB DAILY [facility] Stop: 02/26/18 10:59 Insulin Aspart (Novolog Vial Sliding Scale -) 1 vial SQ ACHS [facility]; Protocol Last Admin: 02/25/18 06:12 Dose: Not Given Insulin Detemir (Levemir Vial) 26 units SQ BID@0700,2200 [facility] Last Admin: 02/25/18 06:12 Dose: 26 units Lisinopril (Prinivil) 20 mg PO BID [facility] Last Admin: 02/25/18 09:56 Dose: 20 mg - Objective Vital Signs: Vital Signs Temperature 98.4 F 02/25/18 06:00 Pulse Rate 72 02/25/18 06:00 Respiratory Rate 18 02/25/18 06:00 Blood Pressure 118/74 02/25/18 06:00 O2 Sat by Pulse Oximetry (%) 97 02/24/18 21:00 Labs: CBC, BMP 02/24/18 06:30 02/24/18 06:30 INR, PTT INR 0.97 (0.82-1.09) 02/21/18 13:24 Problem List - Problems (1) Anemia Assessment/Plan: -BRADY+ chronic disease -monitor trend -Venofer given Code(s): D64.9 - ANEMIA, UNSPECIFIED Qualifiers: Anemia type: unspecified type Qualified Code(s): D64.9 - Anemia, unspecified (2) Diabetic foot ulcer Assessment/Plan: -Seen by Podiatry -no surgical intervention recommended at this time -Santyl on the wound daily -Will f/u with podiatry at [facility] outpatient -going home with PICC and IV abx +PO abx -Seen by ID Code(s): E11.621 - TYPE 2 DIABETES MELLITUS WITH FOOT ULCER; L97.509 - NON- PRESSURE CHRONIC ULCER OTH PRT UNSP FOOT W UNSP SEVERITY Qualifiers: Diabetic foot ulcer location: other Diabetes mellitus type: type 2 Laterality: right Non-pressure ulcer stage: unspecified non-pressure ulcer stage Qualified Code(s): E11.621 - Type 2 diabetes mellitus with foot ulcer; L97.519 - Non-pressure chronic ulcer of other part of right foot with unspecified severity (3) Osteomyelitis, chronic Code(s): M86.60 - OTHER CHRONIC OSTEOMYELITIS, UNSPECIFIED SITE (4) Uncontrolled type 2 diabetes mellitus Assessment/Plan: -BGM AC HS -Diabetic diet -Insulin- long and short acting -Endocrinology consult Code(s): E11.65 - TYPE 2 DIABETES MELLITUS WITH HYPERGLYCEMIA Assessment/Plan see problem list
[2018-02-25] MEDS ORDERED: IRON SUCROSE INJECTION 300 MG in SODIUM CHLORIDE 235 ML IVPB SCH (12:00)
[2018-02-25 13:28] VITALS: BP 148/84; PULSE 84; TEMP 98.6
[2018-02-25] MEDS: VANCOMYCIN 1 GM PREMIX - 1 GM/200 ML BAG IVPB SCH (16:18)
--- NOTE | 2018-02-25 18:20 | DS ---
Physical Examination Vital Signs: Vital Signs Temperature 98.6 F 02/25/18 13:26 Pulse Rate 84 02/25/18 13:26 Respiratory Rate 20 02/25/18 13:26 Blood Pressure 148/84 02/25/18 13:26 O2 Sat by Pulse Oximetry (%) 97 02/25/18 10:00 Constitutional: Yes: Well Nourished, No Distress, Calm Cardiovascular: Yes: Regular Rate and Rhythm Respiratory: Yes: Regular Gastrointestinal: Yes: Normal Bowel Sounds, Soft Musculoskeletal: Yes: WNL Extremities: Yes: WNL Wound/Incision: Yes: Dressing Dry and Intact Neurological: Yes: Alert, Oriented Psychiatric: Yes: Alert, Oriented Labs: CBC, BMP 02/24/18 06:30 02/24/18 06:30 Discharge Summary Reason For Visit: CELLULITIS; ANEMIA; DIABETIC Current Active Problems Cellulitis (Acute) Anemia (Chronic) Diabetic foot ulcer (Chronic) Hospital Course: 42-year-old female, poorly controlled IDDM w/ HbA1c of 11%, HTN, chronic right foot plantar ulcer, bipolar disorder and schizophrenia here with suspected right foot infection. Patient states for the past 6 days she's had worsening pain and swelling of her right foot extending into her ankle and has since been limping. No fever or chills. No recent trauma. States she saw her wound doctor, Dr. Le, 5 days ago and told that she needed admission for an infection. The patient refused to come in then because she has small children that she had to make arrangements for. States she is now here for admission. Of note, pt s/p admission for R foot cellulitis 12/17 and tx w/ vanco, MRSA on wound cx, sen to vanco, resistant to clinda and bactrim. Signs of charcot's foot seen on MRI. No h/o of osteo or amputations Condition: Guarded - Instructions Diet, Activity, Other Instructions: -Diabetic diet -Follow up with Podiatry [facility] Vancomycin 1 gm daily IV for 5 weeks Levaquin 500 mg 1 tab daily for 5 weeks Flagyl 500 mg 1 tab 3 x day for 2 weeks Referrals: Angel Lopez MD [Primary Care Provider] - Maria C Le DPM [Staff Physician] - Disposition: HOME - Home Medications Comprehensive Discharge Medication List: Ambulatory Orders Citalopram Hydrobromide [Celexa -] 10 mg PO DAILY 12/19/17 Lisinopril [Prinivil] 20 mg PO BID 12/19/17 Mupirocin Cream [Bactroban 2% Cream -] 1 applic TP BID #1 tube MDD 2 12/22/17 Insulin (Levemir) [Levemir Vial] 20 units SQ BID 02/21/18 Insulin Lispro [Humalog] 0 unit SQ ASDIR 02/21/18 Collagenase Clostridium Hist. [Santyl -] 1 applic TP DAILY tube 02/25/18 Collagenase Clostridium Hist. [Santyl -] 1 applic TP DAILY #1 tube 02/25/18 Levofloxacin [Levaquin] 500 mg PO DAILY #37 tablet 02/25/18 Vancomycin 1 gm Premix - 1 gm IV DAILY #44 bag 02/25/18 metroNIDAZOLE [Flagyl -] 500 mg PO TID #42 tablet 02/25/18
== END 2018-02-25 20:12 | disposition home or self-care (01) | DRG 344 ==
LOC: JER 10:38 → JERBED 12:43 → J6S 22:30
PROVIDERS: ADMIT Family Medicine; ATTEND Family Medicine
PROC: 02HV33Z Insertion of Infusion Device into Superior Vena Cava, Percutaneous Approach (ICD-10-PCS; principal; 2018-02-24)
DX: E11.69 Type 2 diabetes mellitus with other specified complication (principal); E11.621 Type 2 diabetes mellitus with foot ulcer; L97.519 Non-pressure chronic ulcer of other part of right foot with unspecified severity; I10 Essential (primary) hypertension; E11.21 Type 2 diabetes mellitus with diabetic nephropathy; D64.9 Anemia, unspecified; E11.65 Type 2 diabetes mellitus with hyperglycemia; M86.8X7 Other osteomyelitis, ankle and foot; F20.0 Paranoid schizophrenia; F32.9 Major depressive disorder, single episode, unspecified
CPT/HCPCS: 36415; 36569; 71045-TC-FY; 73630-TC-RT-FY; 73718-TC; 80053; 80061; 81003; 82728; 82962; 83036; 83540; 83550; 83721; 84443; 84703; 85025; 85610; 85651; 86140; 86850; 86900; 86901; 87040; 93005; 93010; 99283-25; C1751; G0480; J1644; J1756; J7030